=== PATIENT | male | born 1940 | race Caucasian/White ===

== ENCOUNTER 2021-12-13 15:34 | Emergency (ER) | payer MEDICARE, SELFPAY ==
[2021-12-13 15:45] VITALS: BP 125/67; PULSE 97; RESP 18; TEMP 36.6; O2SAT 97; BMI 26.2
[2021-12-13 16:00] VITALS: BP 128/70; PULSE 64; O2SAT 100
--- NOTE | 2021-12-13 16:17 | CRLHL7_ITS ---
For Patients: As a result of the Century Cures Act, medical imaging exams and procedure reports are released immediately into your electronic medical record. You may view this report before your referring provider. If you have questions, please contact your health care provider. INDICATION: Vertigo and emesis COMPARISON: 03/05/2014 TECHNIQUE: CT examination of the head was performed as axial sections without intravenous contrast. Images were obtained from the vertex of the skull through the skull base. Please note that all CT scans at this facility use dose modulation, iterative reconstruction, and/or weight-based dosing when appropriate to reduce radiation dose to as low as reasonably achievable. FINDINGS: The brain shows no sign of mass lesion, mass effect, hemorrhage, or edema. There are involutional changes. There is moderate cortical atrophy and there is moderate white matter disease. There is no hydrocephalus. The visualized portions of the orbits are normal in appearance. The osseous structures are normal in appearance with no sign of abnormality in the skull base or calvarium. Minor paranasal sinus mucosal inflammatory disease incidentally noted. IMPRESSION: Involutional changes. No acute-appearing findings. Please note that all CT scans at this facility use dose modulation, iterative reconstruction, and/or weight-based dosing when appropriate to reduce radiation dose to as low as reasonably achievable. Dictated by Martin Demarco MD @ 12/13/2021 5:23:44 PM (Electronically Signed)
[2021-12-13 16:30] VITALS: BP 127/66; PULSE 67; O2SAT 96
[2021-12-13 16:45] LABS: Basophils Absolute Auto 0.06 K/uL (0.00-0.30); Basophils Percent Auto 0.8 % (0.0-3.0); Eosinophils Absolute Auto 0.16 K/uL (0.00-0.50); Hematocrit 41.6 % (37.0-53.0); Hemoglobin* 12.8 gm/dL (13.5-17.5); Immature Granulocytes Abs Auto 0.02 K/uL (0.00-0.30); Lymphocytes Percent Auto 11.4 % (20-44); Mean Corpuscular HGB Conc 31 gm/dL (32-36); Mean Corpuscular Hemoglobin 25 pg (26-34); Mean Corpuscular Volume 81 fL (80-100); Monocytes Percent Auto 7.4 % (0.0-11.0); Neutrophils Percent Auto 78.1 % (42.0-72.0); Platelet Count* 182 K/uL (140-440); Red Blood Count 5.15 m/uL (4.30-5.90); White Blood Count* 7.81 K/uL (4.50-11.00)
[2021-12-13 16:57] LABS: Chloride* 102 mmol/L (96-114); Sodium* 138 mmol/L (135-149)
[2021-12-13 17:00] VITALS: BP 135/70; PULSE 64; O2SAT 97
[2021-12-13 17:00] LABS: Blood Urea Nitrogen* 37 mg/dL (7-30); Calcium* 9.6 mg/dL (8.4-10.6); Carbon Dioxide* 29 mmol/L (20-32); Creatinine* 1.3 mg/dL (0.5-1.5); Est. Creatinine Clearance* 42.38; Estimated Glomerular Filt Rate 54.85; Glucose* 96 mg/dL (60-115)
[2021-12-13 17:01] LABS: Slide Review Reflex No
[2021-12-13 17:15] LABS: Troponin I* < 0.01 ng/mL (0.01-0.04)
--- NOTE | 2021-12-13 17:25 | ED_ITS ---
HPI - General Adult General Time Seen by Provider: 16:00 Date Seen: 12/13/21 Chief complaint: Dizziness/Vertigo Stated complaint: VERTIGO Time Seen by Provider: 12/13/21 15:35 Source: patient History of Present Illness HPI narrative: 81-year-old male presents with an episode of vertigo. Patient reports having chronic recurrent episodes of vertigo triggered by looking up or turning his head to the right. He reports he always sleeps on his left side with his left ear down. If he sleeps on his right side he gets vertigo. He also notes that if he tips his head up and looks up to the Emile he gets vertigo. Today he was working on a car which required him to look up and as a result of this he got an episode of vertigo. He describes the vertigo as prominent nausea and today he had an emesis as well. He feels quite dizzy. He does not specifically describe abnormal movement or a sense of spinning. He does indicate that when this happens he is very unsteady on his feet and has to hold on to keep from falling down. Does not feel like he is losing consciousness. He does not have chest pain. This episode was worse than usual lasting 10-15 minutes total. It has now resolved. He has had no recent head trauma. He does not have ringing in his ears or low new loss of hearing. He does report that he has lost hearing in his right ear which is happened sometime ago. He does not have ringing or bu zzing in his ears. He has not had cold symptoms, allergy symptoms. He does not have a headache. He did have a nosebleed yesterday but it was able to be stopped. He is using sleep apnea CPAP which he finds to be uncomfortable. He thinks is the cause of his nose bleeds. Related Data Allergies Allergy/AdvReac Type Severity Reaction Status Date / Time latex Allergy Verified 12/13/21 15:45 ADHESIVE TAPE-SILICONES Allergy Uncoded 12/13/21 15:45 Latex Allergy Uncoded 12/13/21 15:45 Review of Systems Narrative: Patient reports that he has been felt generally feeling well prior to this event today. He has had no recent illness and no recent injury. He has had no other recent health concerns except his nosebleed yesterday. [facility] Medical History (Updated 12/13/21 @ 17:52 by Trey Kay MD) Adenomatous colon polyp Cardiac pacemaker Coronary artery disease Diabetes mellitus Hearing loss Heart failure Hyperlipidemia Hypertension Ischemic cardiomyopathy Left bundle branch block Left middle cerebral artery stroke Neuropathy Obstructive sleep apnea Prostate cancer Sensorineural hearing loss Surgical History (Updated 12/13/21 @ 15:53 by Trey Kay MD) S/P TAVR (transcatheter aortic valve replacement) Social History Smoking Status: Former smoker What tobacco products do you use: cigarettes Smoking quit date/years: >15 years ago Do you use any of these nicotine containing products: None Second hand tobacco smoke exposure: No How often do you have a drink containing alcohol: never How often do you have six or more drinks on one occasion: Never AUDIT-C Alcohol total score: 0 Non-prescribed substance use: denies use Exam Narrative: Exam Narrative: he is alert and appears in no distress. Head is atraumatic. Pinnas external canals TMs bilaterally normal. eyes appear normal. Conjugate gaze. Extraocular movements are full. Visual salazar are intact. There is no facial weakness. Oropharynx is normal. Tongue is midline. Diminished sensation in his right ear is noted. Neck is supple without mass or adenopathy. Respirations are clear to auscultation. Cardiovascular: S1, S2, regular rate and rhythm. No murmur gallop or rub. Abdomen: Abdomen is soft without tenderness or mass. Extremities with 1+ edema bilaterally in his ankles. He has altered sensation symmetrically. Intact pedal pulses. He lower extremity strength is approximately equal at hip flexion, knee flexion extension, ankle dorsiflexion and plantar flexion. Upper extremity testing shows [id number] and rapid alternating movements are symmetric bilaterally and accurate. 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 No rash Const: Vital Signs, click to edit/add: Vital Signs - 24 hr 12/13/21 15:45 Temperature 97.9 F Pulse Rate [Pulse Oximeter] 97 Respiratory Rate 18 Blood Pressure [Ri ght Upper Arm] 125/67 Pulse Oximetry 97 Course Vital Signs Vital signs: Initial Vital Signs Temperature 97.9 F 12/13/21 15:45 Temperature Source Temporal Artery Scan 12/13/21 15:45 Pulse Rate 97 12/13/21 15:45 Pulse Rhythm 12/13/21 15:45 Respiratory Rate 18 12/13/21 15:45 Blood Pressure 125/67 12/13/21 15:45 Blood Pressure Mean 86 12/13/21 15:45 Pulse Oximetry 97 12/13/21 15:45 Oxygen Delivery Method 12/13/21 15:45 Vital Signs Temperature 97.9 F 12/13/21 15:45 Pulse Rate 97 12/13/21 15:45 Respiratory Rate 18 12/13/21 15:45 Blood Pressure 125/67 12/13/21 15:45 Pulse Oximetry 97 12/13/21 15:45 Temperature 97.9 F 12/13/21 15:45 Pulse Rate 97 12/13/21 15:45 Respiratory Rate 18 12/13/21 15:45 Blood Pressure 125/67 12/13/21 15:45 Pulse Oximetry 97 12/13/21 15:45 Medical Decision Making Lab Data Labs: Lab Results 12/13/21 12/13/21 Range/Units 16:35 16:35 WBC 7.81 (4.50-11.00) K/uL RBC 5.15 (4.30-5.90) m/uL Hgb 12.8 L (13.5-17.5) gm/dL Hct 41.6 (37.0-53.0) % MCV 81 (80-100) fL MCH 25 L (26-34) pg MCHC 31 L (32-36) gm/dL RDW Coeff of Sabino 17.0 H (11.5-15.5) % Plt Count 182 (140-440) K/uL Neut % (Auto) 78.1 H (42.0-72.0) % Lymph % (Auto) 11.4 L (20-44) % [place] % (Auto) 7.4 (0.0-11.0) % Eos % (Auto) 2.0 (0.0-7.0) % Baso % (Auto) 0.8 (0.0-3.0) % Neut # (Auto) 6.10 (1.7-7.0) K/uL Lymph # (Auto) 0.90 (0.90-2.90) K/uL [place] # (Auto) 0.60 (0.00-0.90) K/UL Eos # (Auto) 0.16 (0.00-0.50) K/uL Baso # (Auto) 0.06 (0.00-0.30) K/uL Abs Immat Gran (auto) 0.02 (0.00-0.30) K/uL Sodium 138 (135-149) mmol/L Potassium 5.0 (3.6-5.1) mmol/L Chloride 102 (96-114) mmol/L Carbon Dioxide 29 (20-32) mmol/L BUN 37 H (7-30) mg/dL Creatinine 1.3 (0.5-1.5) mg/dL Estimated Creat Clear 42.38 Glucose 96 (60-115) mg/dL Calcium 9.6 (8.4-10.6) mg/dL Troponin I < 0.01 L (0.01-0.04) ng/mL Discharge Plan Discharge Clinical Impression: Vertigo Patient Disposition: Home, Self-Care Additional Instructions: continue your normal medications. Continue your normal activity including exercise. If you find he cannot tolerate activity due to dizziness you should see your doctor for further evaluation. Activity Level: Activity as Tolerated Discharge Diet: Diabetic Follow Up/Referrals: Basilio Conway MD [Primary Care Provider] - Stand Alone Forms: [employer] Info Instructions
[2021-12-13 17:30] VITALS: BP 129/63; PULSE 66; O2SAT 98
[2021-12-13 18:00] VITALS: BP 132/76; PULSE 66; PULSE 69; RESP 14; O2SAT 95
== END 2021-12-13 18:15 | disposition home or self-care (01) ==
PROVIDERS: Emergency Provider Family Medicine; PCP Family Medicine
DX: R42 Dizziness and giddiness (principal)
CPT/HCPCS: 36415; 70470; 80048; 84484; 85025; 99284; Q9967

== ENCOUNTER 2021-12-24 08:49 | Day surgery (SDC) | payer MEDICARE, SELFPAY ==
--- OUTSIDE RECORDS SUMMARY | 2021-12-03 09:01 | XMS_ITS | Continuity of Care Document ---
:1940 Author Care Team Providers Name Role Phone MD Krystian L Attending Physician MD Ward Conway Primary Care Physician Allergies, Adverse Reactions, Alerts Allergen Type Severity Reaction Last Updated Verified Status Latex Allergy Unknown October 19, Active 2021 ADHESIVE Allergy Unknown February No Active TAPE-SILICONE 2020 S Social History Smoking Status Status Start Date End Date Date of Observat ion Tobacco smoking October 20, 2021 1 1:51pm consumption unknown (finding) Observation Status Observation Response Date of Response History provided by Patient December 03, 2020 2:58 am Where do you live? Own home/apt December 03, 2020 2:58 am With whom do you live? Spouse December 03, 2020 2 :58am Additional Data Assigned Sex Male Problems Active Problems Medical Problem Onset Date Status Diabetes Type II June 22, 2009 Active Hypertension June 22, 2009 Active Prostate Cancer June 22, 2009 Resolved Coronary Artery Disease June 22, 2009 Active Hyperlipidemia June 22, 2009 Active Peripheral neuropathy during June 22, 2009 Active in first trimester Aortic Stenosis October 19, 2009 Active Coronary Artery Disease February 17, 2010 Active Groin pain Active Dizziness Active Benign paroxysmal positional Active vertigo Orthostatic lightheadedness Active Chest pain, rule out acute Active myocardial infarction Epistaxis Active Follow up Active Hypotension Active Melena Active Weight loss Active 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 Elevated BUN Active Elevated lactic acid level Active Abnormal blood electrolyte level Active Recurrent epistaxis Active Iron deficiency anemia due to Active chronic blood loss Chest pain Active Rib injury Active Vertigo Active Encounter for screening for Active COVID-19 Difficulty sleeping Active 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), bioprosthetic Medications Medication Status Dose Units Route Directions Qty Days Start End Ins tructions Date Date Amoxicillin Active 2000 MG PO Once 4 1 HR WI IOR TO APPT Aspirin Active 81 MG PO Daily 100 Atorvastatin Active 40 MG PO Bedtime Calcium Cephalexin Active 250 MG PO Three Times 27 August A Day 2021 10:43am Cephalexin Active 250 MG PO Twice A Day October 19, 2021 2:14pm Cholecalcifer Active 5000 UNIT PO Daily ol (D 5000) 5,000 Unit CAP Empagliflozin Active 10 MG PO Daily (Jardiance) 10 Mg TAB Furosemide Active 40 MG PO Daily as 30 FOR W EIGHT needed GAIN OF 3 LBS OVERNIGHT OR 5 LBS IN ONE WEEK Metformin Hcl Active 1000 MG PO Twice Daily June With Meals 2010 2:30pm Multivitamins Active 1 TAB PO Daily 100 (Multivitamin /Minerals) TAB Nitroglycerin Active 0.4 MG SL Every 5 PRN CHEST (Nitrostat) Minutes as AYANNA N 0.4 Mg SUB needed Semaglutide Active 0.25 MG SUBQ Weekly (Ozempic (1 Mg Dose)) 2 Mg/1.5 Ml INJ Vitamin E Active 400 UNIT PO Daily (E-400) 400 Unit CAP Acetaminophen Disconti 1 - 2 TABLET PO Every 4-6 Decembero be PRN /Hydrocodone nued Hours , r , Bitart 2007 2007 (Vicodin) 5 11:28am 1:33pm Mg/500 Mg TAB Acetaminophen Disconti 1 TABLET PO Four Times December obe PRN /Hydrocodone nued Daily , r , Bitart 2007 2007 (Vicodin) 5 11:55am 1:33pm Mg/500 Mg TAB Acetaminophen Disconti 1 TABLET PO Four Times December y PRN /Hydrocodone nued Daily , , Bitart 2007 2007 (Vicodin) 5 11:28am 11:55a Mg/500 Mg TAB m Amoxicillin Disconti 875 MG PO Twice A Day August nued , , 2009 2009 11:45am 9:02am Amoxicillin & Disconti 875 TABLET PO Twice A Day December nued y , Clavulanate 2006 2006 (Augmentin) 2:14pm 11:11a 875 Mg/125 Mg m TAB Aspirin Disconti 325 MG PO Daily September 12:45p m Aspirin Disconti 325 MG PO Daily September 10:51a m Aspirin Disconti 325 MG PO Daily December (Aspirin 325 , Mg) 325 Mg 2014 TAB 6:30pm Aspirin Disconti December (Aspirin Baby , 81 Mg) 81 Mg 2006 [facility] 11:11a m Atenolol Disconti 1 TABLET PO Daily October nued 2009 5:25pm 6:30pm Atenolol Disconti 1 TABLET PO Daily 90 October nu y 2009 2:44pm 5:25pm Atenolol Disconti 1 TABLET PO Daily 30 August y 2009 8:20am 11:58a m Atenolol Disconti 1 TABLET PO Daily June nu, ry 2008 18, 9:20am 2009 2:44pm Atenolol Disconti 1 TABLET PO Daily 30 Novemjunuar nued r , y 2007 2:04pm 9:20am Atenolol Disconti 1 TABLET PO Daily March nued , er 2007 10, 8:13am 2007 2:04pm Atenolol Disconti 1 TABLET PO Daily 90 nued er r , 2007 8:34am 2:59pm Atenolol Disconti 1 TABLET PO Daily September nued 2007 10:03am 11:18a m Atenolol Disconti 1 TABLET PO Daily Juneed 2007 2:19pm 10:03a m Atenolol Disconti 1 TABLET PO Daily June nued , y 2007, 11:01am 2007 2:19pm Atenolol Disconti 1 TABLET PO Daily 90 Novemjunuar nued r , y 2006, 4:12pm 2007 11:01a m Atenolol Disconti 1 TABLET PO Daily November nued 7th, er 2006 06, 11:30am 2006 4:08pm Atenolol Disconti 1 TABLET PO Daily 90 Ivelisse Love nued , 2006 12:29pm 11:30a m Atenolol Disconti 1 TABLET PO Daily September nued , 2006 11:26am 9:27am Atenolol Disconti August 2:43pm Atorvastatin Disconti 0.5 TABLET PO Daily Calcium nued r 8th, y 5th, (Lipitor) 80 2007 2008 Mg TAB 4:21pm 9:20am Atorvastatin Disconti 0.5 TABLET PO Daily October Calcium nued , er (Lipitor) 80 2008 01, Mg TAB 1:37pm 2007 4:21pm Atorvastatin Disconti 0.5 TABLET PO Daily September Calcium nued , (Lipitor) 80 2007 2007 Mg TAB 10:03am 11:17a m Atorvastatin Disconti 0.5 TABLET PO Daily June Calcium nued , , (Lipitor) 80 2007 2007 Mg TAB 11:01am 10:03a m Atorvastatin Disconti 0.5 TABLET PO Daily December Calcium nued , y (Lipitor) 80 2006 14, Mg TAB 11:30am 2007 11:01a m Atorvastatin Disconti 40 MG PO Daily January Calcium nued , (Lipitor) 40 2006 Mg TAB 9:29am Atorvastatin Disconti Calcium nued ry (Lipitor) 20 , Mg TAB 2006 1:59pm Cephalexin Disconti 500 MG PO Twice A Day Septemberb (Keflex) 500 nued , er Mg CAP 2016, 12:45pm 2016 9:04am Cholecalcifer Disconti 1000 UNIT PO Daily November ol (Vitamin nued , D) 1,000 Unit 2020 TAB 7:36am Ciprofloxacin Disconti 500 MG PO Twice A Day December obe Hcl (Cipro) nued , r , 500 Mg TAB 2007 2007 2:12pm 1:33pm Clopidogrel Disconti 75 MG PO Daily November Bisulfate nued 2020 11:19a m Clopidogrel Disconti 75 MG PO Daily January Bisulfate nued , , (Plavix) 75 2009 2016 Mg TAB 3:57pm 10:31a m Clopidogrel Disconti 75 MG PO Daily June Bisulfate nued , , (Plavix) 75 2010 2014 Mg TAB 10:44am 6:30pm Clopidogrel Disconti 75 MG PO Daily October Bisulfate nued , , (Plavix) 75 2009 2009 Mg TAB 3:00pm 3:57pm Clopidogrel Disconti 75 MG PO Daily June Bisulfate nued , , (Plavix) 75 2009 2009 Mg TAB 1:36pm 3:00pm Clopidogrel Disconti 75 MG PO Daily Bisulfate nued r 30, y 8th, (Plavix) 75 2008 2009 Mg TAB 5:47pm 1:36pm Clopidogrel Disconti 75 MG PO Daily November Bisulfate nued , er (Plavix) 75 2008, Mg TAB 3:15pm 2008 5:47pm Clopidogrel Disconti 75 MG PO Daily June Bisulfate nued , , (Plavix) 75 2008 2008 Mg TAB 9:20am 3:15pm Clopidogrel Disconti 75 MG PO Daily Bisulfate nued er y 5th, (Plavix) 75 , 2008 Mg TAB 2007 9:20am 8:34am Clopidogrel Disconti 75 MG PO Daily 08 January Bisulfate nued , (Plavix) 75 2007 Mg TAB 11:18a m Clopidogrel Disconti 75 MG PO Daily December Bisulfate nued , (Plavix) 75 2006 Mg TAB 11:11a m Desloratidine Disconti January (Clarinex) , Mg TAB 2006 9:29am Diabetic Disconti 1 EA Four Times December Supplies: nued Daily y , , Test Strips 2009 2014 (Onetouch 8:20am 6:30pm Ultra Blue Test Strip) KAYLA Diabetic Disconti 1 EA Twice A Day June Supplies: nued 11, ry Test Strips 2009, (Onetouch 8:05am 2009 Ultra Blue 8:20am Test Strip) KAYLA Diabetic Disconti 1 EA As Needed March Supplies: nued , y Test Strips 2009 04, (Onetouch 3:20pm 2009 Ultra Blue 8:05am Test Strip) KAYLA Diabetic Disconti 1 EA As Needed 100 December Supplies: nued 9, r 1st, Test Strips 2008 2008 (Onetouch 3:31pm 3:20pm Ultra Blue Test Strip) KAYLA Dulaglutide Disconti 1.5 MG SC September (Trulicity) , 1.5 Mg/0.5 Ml 2016 INJ 10:51a m Duloxetine Disconti 20 MG PO Daily 90 Decembe Ivelisse Hcl nued r 2017 2:31pm 11:19a m Duloxetine Disconti 20 MG PO Daily 90 Decembe Decemb Hcl nued r , er 2018 05, 11:10am 2017 2:31pm Duloxetine Disconti 20 MG PO Twice A Day 180 November Decemb Hcl nued , er 2017 09, 10:46am 2017 11:10a m Duloxetine Disconti 20 MG PO Twice A Day 60 September Hcl nued 2017 10:57am 10:46a m Duloxetine Disconti 20 MG PO Twice A Day 60 September Hcl nued , 2017 10:54am 10:57a m Exenatide Disconti 2 MG SUBQ Qfri November (Bydureon nued , Pen) 2 Mg INJ 2020 7:36am Exenatide Disconti 2 MG SUBQ Weekly 13 November (Bydureon nued , Pen) 2 Mg INJ 2020 7:36am Exenatide Disconti 10 MCG SUBQ Twice A Day 10 December I NJECT 1 HOUR ([place]etta) , PRIOR TO Mcg INJ 2014 MEALS 6:30pm Famotidine Disconti 20 MG PO Daily November 7:36am Famotidine Disconti 10 MG PO Daily September 10:51a m Fish Oil Disconti 500 MG PO Daily September 10:51a m Fluticasone Disconti 2 SPRAY EACH Daily September USE 2 SPRAYS Propionate nued NOSTR , IN EACH (Flonase) 50 2009 2014 NOSTRIL ONCE Mcg/1 [place] 9:15am 6:30pm DAILY JONATHAN Fluticasone Disconti 1 SPRAY EACH Daily as September Propionate nued NOSTR needed , (Flonase) 50 2009 2009 Mcg/1 [place] 9:02am 9:15am JONATHAN Fluticasone Disconti 1 SPRAY EACH Daily June Propionate nued NOSTR 5th, 7th, (Flonase) 50 2008 2009 Mcg/1 [place] 9:20am 9:02am JONATHAN Fluticasone Disconti 1 SPRAY EACH Daily Propionate nued NOSTR r 19, y 5th, (Flonase) 50 2007 2008 Mcg/1 [place] 2:58pm 9:20am JONATHAN Fluticasone Disconti 0 NA Daily September USE O NE SPARY Propionate nued , 17th, PER NARE (Nasal) 2006 2006 DAILY (Flonase 11:26am 11:11a Nasal [place]) m 50 Mcg/[place] JONATHAN Fluticasone Disconti 0 X NA Twice A Day Aug ch USE 2 SQUIRTS Propionate nued y 16, 6th, EA NARE BID (Nasal) 2006 2006 (Flonase 1:54pm 2:39pm Nasal [place]) 50 Mcg/[place] JONATHAN Furosemide Disconti 20 MG PO Daily December Phyllis ent ID nued r , , [id number] 2009 2014 1:12pm 6:30pm Furosemide Disconti 20 MG PO Daily October Patie nt ID nued , er [id number] 2010 04, 5:25pm 2009 1:12pm Furosemide Disconti 20 MG PO Daily October Phyllis ent ID nued r 14, 24, [id number] 2008 2009 4:43pm 5:25pm Furosemide Disconti 1 TAB PO Daily March (Lasix) 20 Mg nued , y TAB 2008 04, 8:13am 2009 8:05am Furosemide Disconti 20 MG PO Daily June nued 5th, er 2008 14, 9:20am 2008 4:43pm Furosemide Disconti 20 MG PO Daily March nued 31, y , 2007 2008 8:13am 9:20am Furosemide Disconti 20 MG PO Daily Octobe nued er r 16, , 2007 2007 8:34am 2:59pm Furosemide Disconti 20 MG PO Daily September nued 2007 10:03am 11:18a m Furosemide Disconti 20 MG PO Daily 90 June nued 2007 2:19pm 10:03a m Furosemide Disconti 20 MG PO Daily 90 Juner Pt is due to nued 14, y be seen in 05/18 11:01am 2007 2:19pm Furosemide Disconti 20 MG PO Daily March Pt is due to nued , y be seen in 05/18 2:57pm 2007 11:01a m Furosemide Disconti 20 MG PO Daily November nued , 2006, 11:30am 2006 12:02p m Furosemide Disconti 20 MG PO Daily November nued , 2006 2006 12:29pm 11:30a m Furosemide Disconti 10 MG PO Daily September nued 2006 5:12pm Glipizide Disconti 2 TABLET PO Daily December (Glipizide nued y , , Er) 10 Mg 2009 2014 TABCR 2:49pm 6:30pm Glipizide Disconti 20 MG PO Daily 60 January (Glipizide nued , ry Er) 10 Mg 2008, TABCR 8:47am 2009 2:49pm Glipizide Disconti 15 MG PO Daily November (Glipizide nued , , Er) 5 Mg 2008 2008 TABCR 3:15pm 8:47am Glipizide Disconti 5 MG PO Twice A Day June (Glipizide nued , Er) 5 Mg 2008 2008 TABCR 9:20am 3:15pm Glipizide Disconti 5 MG PO Twice A Day March r (Glipizide nued , y , Er) 5 Mg 2007 2008 TABCR 8:13am 9:20am Glipizide Disconti 5 MG PO Twice A Day 180 e (Glipizide nued er r Er) 5 Mg , , TABCR 2007 2007 8:34am 2:59pm Glipizide Disconti 5 MG PO Twice A Day September (Glipizide nued 23, 29, Er) 5 Mg 2007 2007 TABCR 10:03am 11:18a m Glipizide Disconti 5 MG PO Twice A Day June (Glipizide nued 14, 23, Er) 5 Mg 2007 2007 TABCR 2:19pm 10:03a m Glipizide Disconti 5 MG PO Twice A Day Juneua r Pt is due to (Glipizide nued 14, y be seen 1 07/19 Er) 5 Mg 2007 14, TABCR 11:01am 2007 2:19pm Glipizide Disconti 5 MG PO Twice A Day Marchua r Pt is due to (Glipizide nued 29, y be seen 1 07/19 Er) 5 Mg 2006 14, TABCR 2:57pm 2007 11:01a m Glipizide Disconti 5 MG PO Twice A Day November (Glipizide nued , r Er) 5 Mg 2006, TABCR 11:30am 2006 12:02p m Glipizide Disconti 5 MG PO Twice A Day November (Glipizide nued 7th, 17th, Er) 5 Mg 2006 2006 TABCR 12:29pm 11:30a m Glipizide Disconti 5 MG PO Twice A Day September (Glipizide nued 20th, Er) 5 Mg 2006 TABCR 12:21p m Glipizide Disconti Februa (Glucotrol Xl nued ry 2.5 Mg) 2.5 14, Mg TAB 2006 1:59pm Influenza Disconti 0.5 ML IM Once 12 March Octobe Virus Vacc nued 12th, r Triv Types 2010 05, A&B (Fluarix 8:23am 2009) 0.5 8:24am Ml INJ Influenza Disconti 0.5 ML IM Once 1 Novembe Novemb Virus Vacc nued r 11th, er Triv Types 2009 04, A&B (Fluzone 6:51pm 2008 (Pres-Free) 6:53pm Over 36 Month) 0.5 Ml SYR Influenza Disconti 0.5 ML IM Once 1 Novembe Novemb Virus Vacc nued r , er Triv Types 2006 06, A&B (Fluarix) 4:12pm 2006 0.5 Ml INJ 3:27pm Ketoprofen-Li Disconti 1 CRE EX Twice A Day 120 June J une docaine nued , Hcl-Gabap 2017 2017 (Vopac Gb 11:13am 10:34a 5-2-5 %) 1 m Cre CRE Ketoprofen-Li Disconti 1 CRE EX Twice A Day 120 Decembe J jim docaine nued r , y Hcl-Gabap 2016, (Vopac Gb 1:08pm 2017 5-2-5 %) 1 11:13a Cre CRE m Ketoprofen-Li Disconti 1 CRE EX Twice A Day 30 Novembe D ecemb docaine nued r , er Hcl-Gabap 2016, (Vopac Gb 11:26am 2016 5-2-5 %) 1 1:08pm Cre CRE Ketoprofen-Li Disconti 1 CRE EX Twice A Day 30 Novembe N ovemb docaine nued r , er Hcl-Gabap 2016, (VopaeGym Gb 9:33am 2016 5-2-5 %) 1 11:26a Cre CRE m Lisinopril Disconti 2.5 MG PO Daily December nued 2014 9:56am Loperamide Disconti 4 MG PO As Needed November nued , (Loperamide 2020 A-D) 2 Mg TAB 7:36am Loperamide Disconti 2 MG PO Qid Prn December Hcl nued 2014 6:30pm Lorazepam Disconti 1 MG PO Every 12 September (Ativan) 1 Mg nued Hours as 6th, er TAB needed 2016, 12:45pm 2016 9:04am Metformin Hcl Disconti 1000 MG PO Twice Daily 180 December uar nued With Meals 2009, 10:24am 2010 2:29pm Metformin Hcl Disconti 1000 MG PO Twice Daily June J ekaterina nued With Meals , 2009 2:12pm 10:24a m Metformin Hcl Disconti 1000 MG PO Twice Daily 180 November uar nued With Meals 2008, 3:15pm 2009 2:12pm Metformin Hcl Disconti 1000 MG PO Twice Daily June J une nued With Meals 2008 9:20am 3:15pm Metformin Hcl Disconti 1000 MG PO Twice Daily 180 December uar nued With Meals , y 2007 11:55am 9:20am Metformin Hcl Disconti 1000 MG PO Twice Daily September y nued With Meals , 2007 10:03am 11:55a m Metformin Hcl Disconti 1000 MG PO Twice Daily June A pril nued With Meals , 2007 2:19pm 10:03a m Metformin Hcl Disconti 1000 MG PO Twice Daily June J jim Pt is due to nued With Meals 14, y be seen 1 07/19 2007 14, 11:01am 2007 2:19pm Metformin Hcl Disconti 1000 MG PO Twice Daily March J jim Pt is due to nued With Meals , y be seen 1 07/19 2006 14, 2:57pm 2007 11:01a m Metformin Hcl Disconti 1000 MG PO Twice Daily 180 November obe nued With Meals , 2006, 11:30am 2006 12:02p m Metformin Hcl Disconti 1000 MG PO Twice Daily November nued With Meals , 2006 12:29pm 11:30a m Metformin Hcl Disconti September nued 2006 5:12pm Metoprolol Disconti 12.5 MG PO Bedtime November Succinate nued , (Metoprolol 2020 Succinate Er) 11:19a 25 Mg TABCR m Metoprolol Disconti 25 MG PO Twice A Day November Tartrate nued 2020 7:36am Nystatin Disconti 1 PATRICIA TOP Daily October (Topical) nued , (Nystop) 2015 100,000 Mg 11:00a POW m Omeprazole Disconti 20 MG PO Daily December (Prilosec) nued , Mg CAP 2014 6:30pm Oxycodone/[place] Disconti 1 TAB PO Every 12 September taminophen nued Hours as 6th, er needed for 2016, Pain 12:45pm 2016 9:04am Pioglitazone Disconti 15 MG PO Daily Marchua Hcl (Actos) nued , ry 15 Mg TAB 2007, 8:13am 2008 9:38am Pioglitazone Disconti 15 MG PO Daily Octobe Hcl (Actos) nued er r 15 Mg TAB , 2007 8:34am 2:59pm Pioglitazone Disconti 15 MG PO Daily October Hcl (Actos) nued , , 15 Mg TAB 2007 2007 10:36am 11:18a m Pioglitazone Disconti 0.5 TABLET PO Daily December Decemb Hcl (Actos) nued , er 30 Mg TAB 2006, 11:30am 2006 5:15pm Pioglitazone Disconti 15 MG PO Daily 0 January Hcl (Actos) nued , 15 Mg TAB 2006 9:29am Plavix 75MG Disconti January Qd nu2006 9:29am Senna/Docusat Disconti 1 TAB PO Twice A Day September emb e Sodium nued as needed , er (Senna S) 8.6 2016, Mg/50 Mg TAB 12:46pm 2016 9:04am Simvastatin Disconti 1 TABLET PO Bedtime June (Zocor) 80 Mg nued , , TAB 2010 2014 1:56pm 6:30pm Simvastatin Disconti 1 TABLET PO Bedtime Januar (Zocor) 80 Mg nued r , , TAB 2008 2010 5:47pm 1:56pm Simvastatin Disconti 1 TABLET PO Bedtime June (Zocor) 80 Mg nued , er TAB 2008, 9:20am 2008 5:47pm Immunizations Immunization Event Date Not Given Dose Insulation Worker Lot Vac cine Reason Number Number Informatio n Statement (VIS) Deta il COVID-19 Pfizer July 13 PFIZER-BIONTECH [id number] 2020 COVID-19 Pfizer August 25 PFIZER-BIONTECH [id number] 2020 Influenza April 12 glaxo [id number] 2008 a Influenza March 13 Glaxosmithkline [id number] 2009 a Advance Directives Advance Directive Response Recorded Date/Time Does Pt have Health Care No January 07, 2015 7:00pm Directive? Has patient completed a Yes February 21, 2021 2:05pm Health Care Directive? Insurance Providers Guarantor Sumit Almeida Address [id number] [id number] Contact Info. Home Phone: C Payer Policy Id Coverage Id Subscriber's Subscriber Id Effective E xpiration Name Date Date [employer] [id number] Sumit Almeida Medicare Ppo [id number] Plan of Treatment Future Tests Future scheduled test information is unavailable Pending Tests Pending diagnostic test information is unavailable Future Visits Future appointment information is unavailable Referrals to Other Providers Reason for Referral Referral Start Provider Provider Contact Pr ovider Address Date Information Sumit is scheduled Vot Work Phone[facility] Gibbs on [address] December 27, [facility] [address] at 9:30 am. Appointment made with Dr. Estrada Felix at [facility] Dr. Isidro in [place]. [phone]. 3 pm on October 07 Estrada Told patient to take 2 enemas for appointment 1pm and 2pm No diet larry restrictions. Patient is Dr. Julianne scheduled with Dr. Goldstein Monday October 22, 2007 at 3:[address] Tra scheduled for on October 19, 2007 at 1:15 pm at [place] Appointment set up [facility], Work Phone: DINA CRUMP Y for January 06 at Smith Rossi MD [address] 9:[address] [place] [address] [facility]. Appointment made with Dr. Estrada Felix at [facility] Dr. Isidro in [place]. [phone]. 3 pm on October 07 Estrada Told patient to take 2 enemas for appointment 1pm and 2pm No diet larry restrictions. Patient is Dr. Julianne scheduled with Dr. Goldstein Monday October 22, 2007 at 3:[address] Tra scheduled for on October 19, 2007 at 1:15 pm at [place] Appointment set up [facility], Work Phone: [facility]OLOG Y for January 06 at Smith Rossi MD [address] 9:[address] [place] [address] [facility]. Future Procedures Future procedure information is unavailable Future Medications Future medication information is unavailable Patient Instructions See Additional Instructions Chest Pain (DC) Lorazepam (By mouth) Laxative, Stool Softeners (By mouth) Nosebleed (GEN)
[2021-12-24] MEDS: LACTATED RINGERS 1000 ML 1,000 ML 100 ML IV (09:30)
[2021-12-24] MEDS: LACTATED RINGERS 1000 ML 1,000 ML 35 ML IV (09:30)
[2021-12-24 09:32] VITALS: BP 135/64; PULSE 62; RESP 20; TEMP 36.5; O2SAT 99; BMI 28.6
[2021-12-24] MEDS: OXYMETAZOLINE 0.05% NASAL SPRAY 2 SPRAY NOSTRIL-B (09:45)
[2021-12-24] MEDS: SODIUM CHLORIDE 0.9 % (FLUSH) 10 ML SYRINGE IVF (09:45)
--- NOTE | 2021-12-24 10:49 | W.PM.ENTPROC ---
Procedure Note Date of procedure: 12/24/21 Procedure: Preoperative diagnosis nasal septal perforation Postoperative diagnosis same Procedure placement of nasal septal button Under attended local anesthesia the patient's prepped and draped in usual fashion. The nose was decongested with a small amount of cocaine soaked on after on pledgets. A septal button was marked with a paper template and then trimmed. Two 4-0 nylon sutures were placed on the left side of the septal button to allow it to fit through the perforation. The septal bone was placed without difficulty in both sutures were removed. The patient tolerated the procedure well and was taken recovery in satisfactory condition blood loss was 0 Surgeon: Jeison Boland MD
--- NOTE | 2021-12-24 10:56 | SUR.OPER ---
PATIENT QUESTIONS ANSWERED SATISFACTORILY PREOPERATIVELY. PATIENT BROUGHT TO OR #2 PER CART.Patient positioned supine on OR #2 bed. ?Perioperative team tucked arms bilaterally at patient side with drawsheet in a neutral position. ?Final approval of positioning by surgeon. Petar. APPROVED USE OF THE SEPTAL BUTTON.
--- NOTE | 2021-12-24 10:58 | W.ANESCHARGE ---
Anesthesia Charges Start Date/Time Anesthesia Start Date: 12/24/21 Anesthesia Start Time: 10:30 Stop Date/Time Anesthesia Stop Date: 12/24/21 Anesthesia Stop Time: 10:58 Summary Emergency: No Extremes of Age: Over 69-CPT [id number]
[2021-12-24 11:00] VITALS: BP 147/69; PULSE 65; RESP 20; O2SAT 99
[2021-12-24 11:11] VITALS: BP 143/68; PULSE 64; RESP 20; TEMP 36.2; O2SAT 96
[2021-12-24 11:30] VITALS: BP 151/73; PULSE 64; RESP 20; O2SAT 99
--- NOTE | 2021-12-24 11:43 | SUR.PHASEII ---
DISCHARGE INSTRUCTIONS GIVEN TO PT AND DAUGHTER BOTH UNDERSTAND AND HAVE NO FURTHER QUESTIONS. SALINE LOCK D/CD CATHETER INTACT. PT DISCHARGED IN STABLE CONDTION
[2021-12-24 11:45] VITALS: BP 143/69; PULSE 64; RESP 20; O2SAT 99
== END 2021-12-24 11:50 | disposition home or self-care (01) ==
PROVIDERS: PCP Family Medicine; Visit Provider Otolaryngology
PROC: (CPT 30520; principal; 2021-12-24 09:45)
DX: J34.89 Other specified disorders of nose and nasal sinuses (principal)
CPT/HCPCS: 30630; 160; 99100; A9270; J2704; J7120

== ENCOUNTER 2022-12-24 20:07 | Emergency (ER) | payer MEDICARE, SELFPAY ==
[2022-12-24 20:32] VITALS: BP 116/65; PULSE 71; RESP 14; TEMP 36.2; O2SAT 98; BMI 27.4
--- NOTE | 2022-12-24 21:53 | ED.GENADULT ---
HPI - General Adult General Chief complaint: Extremity Pain/Injury, Lower Stated complaint: left leg sore, swollen, bruised, diabetic Time Seen by Provider: 12/24/22 21:21 History of Present Illness HPI narrative: Pt here for eval of LLE, swelling, redness, pain. Was away at car event since last week and noticed spot on leg. Has been getting worse. Hx diabetes, neuropathy 82-year-old man presenting to the emergency department with concern of potential blood clot in his leg. Has not had any chest pain or shortness of breath. Does take clopidogrel. There was no trauma. Underlying history of neuropathy in the setting of diabetes with a history of hypesthesia and pain more than loss of sensation. This erythema began a few days ago and admittedly looks better than it did couple days ago. Has been apparently recommended to some compression stockings in the past but does not wear them. Evidently have been treating with some cold packs. Related Data Home Medications Medication Instructions Recorded Confirmed atorvastatin 40 mg tablet 40 mg PO QPM 12/22/21 03/15/22 cholecalciferol (vitamin D3) 125 5,000 unit PO DAILY 12/22/21 03/15/22 mcg (5,000 unit) capsule clopidogrel 75 mg tablet 75 mg PO DAILY 12/22/21 03/15/22 duloxetine 20 mg capsule,delayed 20 mg PO BID 12/22/21 03/15/22 release empagliflozin 10 mg tablet 10 mg PO DAILY 12/22/21 03/15/22 furosemide 40 mg tablet 40 mg PO .COMPLEX PRN 12/22/21 03/15/22 metformin 1,000 mg tablet 1,000 mg PO BID 12/22/21 03/15/22 semaglutide 0.25 mg or 0.5 mg (2 1 mg subcut .weekly 12/22/21 03/15/22 mg/1.5 mL) subcutaneous pen injector (Ozempic) vitamin E (dl, acetate) 180 mg 400 unit PO DAILY 12/22/21 03/15/22 (400 unit) capsule Allergies Allergy/AdvReac Type Severity Reaction Status Date / Time adhesive tape Allergy Unknown Verified 03/15/22 11:29 latex Allergy Verified 03/15/22 11:29 Review of Systems Status of ROS: Reports: 6 or more systems reviewed and unremarkable except as noted in History and below [facility] Medical History Hearing loss ?H91.90 - Unspecified hearing loss, unspecified ear (ICD-10) Heart failure ?I50.9 - Heart failure, unspecified (ICD-10) 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 - Cerebral infarction due to unspecified occlusion or stenosis of left middle cerebral artery (ICD-10) Cardiac pacemaker ?Z95.0 - Presence of cardiac pacemaker (ICD-10) Obstructive sleep apnea ?G47.33 - Obstructive sleep apnea (adult) (pediatric) (ICD-10) Ischemic cardiomyopathy ?I25.5 - Ischemic cardiomyopathy (ICD-10) Left bundle branch block ?I44.7 - Left bundle-branch block, unspecified (ICD-10) Sensorineural hearing loss ?H90.5 - Unspecified sensorineural hearing loss (ICD-10) Adenomatous colon polyp ?D12.6 - Benign neoplasm of colon, unspecified (ICD-10) Neuropathy ?G62.9 - Polyneuropathy, unspecified (ICD-10) Prostate cancer ?C61 - Malignant neoplasm of prostate (ICD-10) Hyperlipidemia ?E78.5 - Hyperlipidemia, unspecified (ICD-10) Hypertension ?I10 - Essential (primary) hypertension (ICD-10) Coronary artery disease ?I25.10 - Atherosclerotic heart disease of [place] coronary artery without angina pectoris (ICD-10) Diabetes mellitus ?E11.9 - Type 2 diabetes mellitus without complications (ICD-10) Surgical History Status post transcatheter aortic valve replacement (TAVR) using bioprosthesis ?Z95.3 - Presence of xenogenic heart valve (ICD-10) S/P hernia repair ?Z98.890 - Other specified postprocedural states (ICD-10) ?Z87.19 - Personal history of other diseases of the digestive system (ICD-10) S/P TAVR (transcatheter aortic valve replacement) ?Z95.2 - Presence of prosthetic heart valve (ICD-10) Social History Smoking Status: Never smoker Do you use any of these nicotine containing products: None Second hand tobacco smoke exposure: No How often do you have a drink containing alcohol: never How often do you have six or more drinks on one occasion: Never AUDIT-C Alcohol total score: 0 Non-prescribed substance use: denies use Caffeine: Yes Exam Narrative: Exam Narrative: Left lower anterolateral leg has a palm sized area of erythema with some mild calor more centrally. There are superficial varicosities over the lower legs bilaterally left greater than right. Negative Homans. No pain to palpation elsewhere in the leg. No loss of surface architecture. Generally 1+ pitting edema bilaterally lower extremities. Const: Vital Signs, click to edit/add: Vital Signs - 24 hr 12/24/22 20:32 Temperature 97.2 F L Pulse Rate [Pulse Oximeter] 71 Respiratory Rate 14 Blood Pressure [Ri t Upper Arm] 116/65 Pulse Oximetry 98 Oxygen Delivery Me thod Room Air Documenting provider has reviewed patient's vital signs: yes Course Vital Signs Vital signs: Initial Vital Signs Temperature 97.2 F L 12/24/22 20:32 Temperature Source Temporal Artery Scan 12/24/22 20:32 Pulse Rate 71 12/24/22 20:32 Pulse Rhythm Regular 12/24/22 20:32 Respiratory Rate 14 12/24/22 20:32 Blood Pressure 116/65 12/24/22 20:32 Blood Pressure Mean 82 12/24/22 20:32 Blood Pressure Position Sitting 12/24/22 20:32 Pulse Oximetry 98 12/24/22 20:32 Oxygen Delivery Method Room Air 12/24/22 20:32 Vital Signs Temperature 97.2 F L 12/24/22 20:32 Pulse Rate 71 12/24/22 20:32 Respiratory Rate 14 12/24/22 20:32 Blood Pressure 116/65 12/24/22 20:32 Pulse Oximetry 98 12/24/22 20:32 Oxygen Delivery Method Room Air 12/24/22 20:32 Temperature 97.2 F L 12/24/22 20:32 Pulse Rate 71 12/24/22 20:32 Respiratory Rate 14 12/24/22 20:32 Blood Pressure 116/65 12/24/22 20:32 Pulse Oximetry 98 12/24/22 20:32 Oxygen Delivery Method Room Air 12/24/22 20:32 Medical Decision Making MDM Narrative Medical decision making narrative: I do not see findings consistent with cellulitis. I believe this is more of a localized inflammatory reaction/change consistent with superficial phlebitis. I do not see evidence of deep venous area thrombus. There is general symmetry to both legs as well. I do think we can defer any ultrasound imaging here today. I did though discussed that this was something we could do with Mr. León and his partner. Does need to do a better job of elevating his legs. Opted to defer at this point. I offered/applied Wayne wraps. See patient discharge plan. Discharge Plan Discharge Clinical Impression: Varicose veins of both lower extremities, Superficial thrombophlebitis, Edema, peripheral Patient Disposition: Home, Self-Care Condition: Stable Additional Instructions: Elevate your legs at rest as best you can. Consider compression with Wayne wraps as discussed. Watch for marked increase in swelling of your leg or marked increase in pain, spreading redness, tension, heat. Apply cold packs as you wish but otherwise mobilization is probably best helped with warm moist packs couple of times daily. Prescriptions: No Action atorvastatin 40 mg tablet 40 mg PO QPM cholecalciferol (vitamin D3) 125 mcg (5,000 unit) capsule 5,000 unit PO DAILY clopidogrel 75 mg tablet 75 mg PO DAILY duloxetine 20 mg capsule,delayed release(DR/EC) 20 mg PO BID empagliflozin 10 mg tablet 10 mg PO DAILY furosemide 40 mg tablet 40 mg PO .COMPLEX PRN Rx Instructions: 40 mg PO FOR WEIGHT GAIN OF 3 LBS OVERNIGHT OR 5 LBS IN ONE WEEK PRN; FOR WEIGHT GAIN OF 3 LBS OVERNIGHT OR 5 LBS IN ONE WEEK metformin 1,000 mg tablet 1,000 mg PO BID Patient Comments: TAKE 1 TABLET BY MOUTH TWICE DAILY WITH MEALS Ozempic 0.25 mg or 0.5 mg(2 mg/1.5 mL) pen injector 1 mg SUBCUT .weekly Patient Comments: INJECT 1 MG SUBCUTANEOUS ONCE WEEKLY. vitamin E (dl, acetate) 180 mg (400 unit) capsule 400 unit PO DAILY Follow Up/Referrals: Basilio Conway MD [Primary Care Provider] - Stand Alone Forms: [employer] Info Instructions
== END 2022-12-24 23:07 | disposition home or self-care (01) ==
LOC: ED 22:14
PROVIDERS: Emergency Provider Family Medicine; PCP Family Medicine
DX: I80.03 Phlebitis and thrombophlebitis of superficial vessels of lower extremities, bilateral (principal)
CPT/HCPCS: 99282; 99284

== ENCOUNTER 2023-04-10 15:33 | Outpatient (CLI) | payer MEDICARE, SELFPAY | END 2023-04-10 15:34 | disposition home or self-care (01) | LOC: AMB 04-12 11:50 | PROVIDERS: PCP Family Medicine; Visit Provider Family Medicine | DX: R41.82 Altered mental status, unspecified (principal) | CPT/HCPCS: A0425; A0427 ==

== ENCOUNTER 2023-04-10 16:04 | Emergency (ER) | payer MEDICARE, SELFPAY ==
[2023-04-10] VITALS (21 sets, daily range): BP systolic 97–136; BP diastolic 57–74; PULSE 68–75; RESP 16; TEMP 36.3; O2SAT 95–98; BMI 25.0
--- NOTE | 2023-04-10 16:14 | CRLHL7_ITS ---
For Patients: As a result of the Century Cures Act, medical imaging exams and procedure reports are released immediately into your electronic medical record. You may view this report before your referring provider. If you have questions, please contact your health care provider. INDICATION: Fall. TECHNIQUE: Noncontrast CT of the head with multiplanar reformat in bone and soft tissue algorithms. COMPARISON: CT head dated 12/13/2021. FINDINGS: No acute intracranial hemorrhage. The hess-white matter interface is preserved. Mild global parenchymal volume loss with ex-vacuo prominence of the supratentorial ventricles. The skull base and calvarium are within normal limits. There is evidence of prior cataract surgery. Paranasal sinuses and mastoid air cells are predominantly clear. IMPRESSION: No acute intracranial abnormality. Please note that all CT scans at this facility use dose modulation, iterative reconstruction, and/or weight-based dosing when appropriate to reduce radiation dose to as low as reasonably achievable. Dictated by John Donis MD @ 04/10/2023 4:50:55 PM (Electronically Signed)
--- NOTE | 2023-04-10 16:14 | CRLHL7_ITS ---
For Patients: As a result of the Century Cures Act, medical imaging exams and procedure reports are released immediately into your electronic medical record. You may view this report before your referring provider. If you have questions, please contact your health care provider. INDICATION: Acute stroke. TECHNIQUE: CTA neck with contrast bolus tracking, 3D angiographic rendering using maximum intensity projection (MIP) and images permanently archived. FINDINGS: There is carotid atherosclerosis with irregular calcified plaque at both carotid bifurcations. There are moderate approximately 50% stenoses on both sides. There is no significant vertebral artery stenosis or dissection. The soft tissues of the neck are within normal limits. The cervical spine is in normal alignment. Degenerative changes are noted in the cervical spine. IMPRESSION: Moderate bilateral carotid stenoses, about 50% by NASCET on both sides. Please note that all CT scans at this facility use dose modulation, iterative reconstruction, and/or weight-based dosing when appropriate to reduce radiation dose to as low as reasonably achievable. Dictated by Luis Olivera MD @ 04/11/2023 8:09:08 AM (Electronically Signed)
--- NOTE | 2023-04-10 16:14 | CRLHL7_ITS ---
For Patients: As a result of the Century Cures Act, medical imaging exams and procedure reports are released immediately into your electronic medical record. You may view this report before your referring provider. If you have questions, please contact your health care provider. INDICATION: Acute stroke. TECHNIQUE: CTA head with contrast bolus tracking, 3D angiographic rendering using maximum intensity projection (MIP) and images permanently archived. FINDINGS: There is scattered intracranial atherosclerotic disease. There is normal opacification of the intracranial vasculature. There is no large vessel occlusion. No aneurysm is identified. IMPRESSION: No large vessel occlusion. Please note that all CT scans at this facility use dose modulation, iterative reconstruction, and/or weight-based dosing when appropriate to reduce radiation dose to as low as reasonably achievable. Dictated by Luis Olivera MD @ 04/11/2023 8:04:49 AM (Electronically Signed)
--- NOTE | 2023-04-10 16:32 | ED_ITS ---
HPI - General Adult General Chief complaint: Neuro Symptoms/Altered Deficit Stated complaint: Possible stroke Time Seen by Provider: 04/10/23 16:14 Source: patient and EMS Mode of arrival: EMS Limitations: no limitations History of Present Illness HPI narrative: 82-year-old male presenting today after having an episode where he felt very disoriented. Patient states that he was driving home when he all of a sudden felt like he could and steer the car properly and he could not push down on the gas pedal properly. He states that he was going about 70 miles an hour so he slow down to about 45 miles an hour and proceeded to continue on his way home which was about 2-3 miles. He made it home and when he got in his driveway he called his daughter to come outside and asked her to call 911. By the time he arrives in the ER today, he states that he has no symptoms and he is back to baseline. He does not believe he had any difficulty with speech. Believes that the episode encompassed his whole body and not just 1 side. He had no loss of bowel or bladder control. He had no visual changes or ringing in his ears. He had no loss of consciousness. He is currently headache free. 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 Glucose on arrival was 101. Related Data Home Medications Medication Instructions Recorded Confirmed atorvastatin 40 mg tablet 40 mg PO QPM 12/22/21 04/10/23 cholecalciferol (vitamin D3) 125 5,000 unit PO DAILY 12/22/21 04/10/23 mcg (5,000 unit) capsule clopidogrel 75 mg tablet 75 mg PO DAILY 12/22/21 04/10/23 duloxetine 20 mg capsule,delayed 20 mg PO BID 12/22/21 04/10/23 release empagliflozin 10 mg tablet 10 mg PO DAILY 12/22/21 04/10/23 furosemide 40 mg tablet 40 mg PO .COMPLEX PRN 12/22/21 04/10/23 metformin 1,000 mg tablet 1,000 mg PO BID 12/22/21 04/10/23 semaglutide 0.25 mg or 0.5 mg (2 1 mg subcut .weekly 12/22/21 04/10/23 mg/1.5 mL) subcutaneous pen injector (Ozempic) vitamin E (dl, acetate) 180 mg 400 unit PO DAILY 12/22/21 04/10/23 (400 unit) capsule gabapentin 300 mg capsule 300 mg PO 3XD 04/10/23 04/10/23 Allergies Allergy/AdvReac Type Severity Reaction Status Date / Time adhesive tape Allergy Unknown Verified 04/10/23 16:19 latex Allergy Verified 04/10/23 16:19 Review of Systems Status of ROS: Reports: 10 or more systems reviewed and unremarkable except as noted in History and below PFSH FOR[facility]LY [facility] Medical History Hearing loss ?H91.90 - Unspecified hearing loss, unspecified ear (ICD-10) Heart failure ?I50.9 - Heart failure, unspecified (ICD-10) 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 - Cerebral infarction due to unspecified occlusion or stenosis of left middle cerebral artery (ICD-10) Cardiac pacemaker ?Z95.0 - Presence of cardiac pacemaker (ICD-10) Obstructive sleep apnea ?G47.33 - Obstructive sleep apnea (adult) (pediatric) (ICD-10) Ischemic cardiomyopathy ?I25.5 - Ischemic cardiomyopathy (ICD-10) Left bundle branch block ?I44.7 - Left bundle-branch block, unspecified (ICD-10) Sensorineural hearing loss ?H90.5 - Unspecified sensorineural hearing loss (ICD-10) Adenomatous colon polyp ?D12.6 - Benign neoplasm of colon, unspecified (ICD-10) Neuropathy ?G62.9 - Polyneuropathy, unspecified (ICD-10) Prostate cancer ?C61 - Malignant neoplasm of prostate (ICD-10) Hyperlipidemia ?E78.5 - Hyperlipidemia, unspecified (ICD-10) Hypertension ?I10 - Essential (primary) hypertension (ICD-10) Coronary artery disease ?I25.10 - Atherosclerotic heart disease of [place] coronary artery without angina pectoris (ICD-10) Diabetes mellitus ?E11.9 - Type 2 diabetes mellitus without complications (ICD-10) Surgical History Status post transcatheter aortic valve replacement (TAVR) using bioprosthesis ?Z95.3 - Presence of xenogenic heart valve (ICD-10) S/P hernia repair ?Z98.890 - Other specified postprocedural states (ICD-10) ?Z87.19 - Personal history of other diseases of the digestive system (ICD-10) S/P TAVR (transcatheter aortic valve replacement) ?Z95.2 - Presence of prosthetic heart valve (ICD-10) Social History Smoking Status: Never smoker Do you use any of these nicotine containing products: None Second hand tobacco smoke exposure: No How often do you have a drink containing alcohol: never How often do you have six or more drinks on one occasion: Never AUDIT-C Alcohol total score: 0 Non-prescribed substance use: denies use Caffeine: Yes Exam Narrative: Exam Narrative: Well-nourished well-developed patient in no acute distress. Alert and oriented x3. Answers questions appropriately. Mood and affect are appropriate. Thoughts are goal oriented and rational. No tangential or magical thinking noted. Patient speaks in full sentences without needing to catch his breath. Speech is not slurred or pressured. HEENT: Normocephalic atraumatic. Pupils are equally round reactive to light. Extraocular muscles are intact. Conjunctivae are moist without any icterus noted. Moist mucous membranes. Posterior pharynx is normal. Neck is soft without any lymphadenopathy or thyromegaly. No masses are appreciated. Slight asymmetry of his lips, he states this is not new. No asymmetry of the rest of the face. Cardiovascular: Heart is regular rate and rhythm S1 and S2 are present without any murmurs. Lungs: Clear to auscultation bilaterally no wheezes rhonchi or rales are appreciated. Patient takes deep breaths without any discomfort. Abdomen: Soft and nontender nondistended with normal bowel sounds. Extremities: Bilateral lower extremities are without edema. Skin: Well perfused without any obvious rashes. Strength is 5/5 of the upper and lower extremities. Reflexes are 2+ and symmetric at the knees. Cranial nerves 3-12 are normal. [id number] is normal. There is no nystagmus either horizontally or vertically. Gait is normal. No pronator drift. Const: Vital Signs, click to edit/add: Vital Signs - 24 hr 04/10/23 16:12 04/10/23 16:14 04/10/23 16:14 Temperature 97.3 F L Pulse Rate Pulse Rate [Left P ulse Oximeter] 68 Pulse Rate [Pulse Oximeter] 69 Respiratory Rate 16 Blood Pressure Blood Pressure [Le ft Upper Arm] 97/57 L Pulse Oximetry 98 98 Oxygen Delivery Me thod Room Air 04/10/23 16:57 04/10/23 17:00 04/10/23 17:02 Temperature Pulse Rate 68 70 71 Pulse Rate [Left P ulse Oximeter] Pulse Rate [Pulse Oximeter] Respiratory Rate Blood Pressure 109/65 Blood Pressure [Le ft Upper Arm] Pulse Oximetry 96 98 96 Oxygen Delivery Me thod 04/10/23 17:10 04/10/23 17:12 04/10/23 17:15 Temperature Pulse Rate 72 74 Pulse Rate [Left P ulse Oximeter] Pulse Rate [Pulse Oximeter] Respiratory Rate Blood Pressure 120/66 Blood Pressure [Le ft Upper Arm] Pulse Oximetry 97 96 96 Oxygen Delivery Me thod 04/10/23 17:22 04/10/23 17:23 04/10/23 17:30 Temperature Pulse Rate 74 72 70 Pulse Rate [Left P ulse Oximeter] Pulse Rate [Pulse Oximeter] Respiratory Rate Blood Pressure 118/66 Blood Pressure [Le ft Upper Arm] Pulse Oximetry 98 97 97 Oxygen Delivery Me thod 04/10/23 17:32 04/10/23 18:04 04/10/23 18:06 Temperature Pulse Rate 69 72 70 Pulse Rate [Left P ulse Oximeter] Pulse Rate [Pulse Oximeter] Respiratory Rate Blood Pressure 119/65 129/66 Blood Pressure [Le ft Upper Arm] Pulse Oximetry 97 96 98 Oxygen Delivery Me thod 04/10/23 18:07 04/10/23 18:15 04/10/23 18:30 Temperature Pulse Rate 71 73 75 Pulse Rate [Left P ulse Oximeter] Pulse Rate [Pulse Oximeter] Respiratory Rate Blood Pressure Blood Pressure [Le ft Upper Arm] Pulse Oximetry 97 97 95 Oxygen Delivery Me thod 04/10/23 18:32 04/10/23 18:45 Temperature Pulse Rate 74 75 Pulse Rate [Left P ulse Oximeter] Pulse Rate [Pulse Oximeter] Respiratory Rate Blood Pressure 132/71 Blood Pressure [Le ft Upper Arm] Pulse Oximetry 97 98 Oxygen Delivery Me thod Course Course ED Course: Patient was met in the ambulance bay. A brisk neurological examination was done on the way to CT, this did not show any deficits. Patient had normal speech, he has a slight asymmetry of his mouth which he states is normal. No asymmetry of the remainder of the face. He had normal strength of all [address] was done, read by me, does not show any acute abnormalities: Patient proceeded to CTA of head and neck after lab work was drawn and creatinine was done. I did feel that waiting for creatinine results was more beneficial to this patient at this time given that he was asymptomatic. Remainder of his physical exam was done at this time. Head and neck CTA were unremarkable per preliminary read. EKG, read by me, shows a nonspecific intraventricular block with a pulse of 70. Repeat EKG did show some changes in several leads. I did call Cardiology at [facility] and spoke to Dr. Jauregui, who felt that the differences between the EKGs were likely secondary to 1 being paced and the other 1 not being paced. She recommended I talked to [employer] and have the tech check his pacemaker. I was able to call [employer] and I spoke to Katie Hodges who stated that the patient had a in-person visit on March 23 where he had his leads checked. Leads have been in place since 2016 and she felt that a recheck today was not necessary. CBC showed a slightly low hemoglobin at 12.4, thrombocytopenia a 97,000. Chemistries were unremarkable. Alkaline phosphatase and AST slightly elevated. Initial troponin was within normal limits. Repeat troponin within normal limits. Patient did have slightly low blood pressures while he was here in the upper 90s low 100 systolic, therefore he did receive 500 mL of normal saline. Blood pressure did go up into the 120s systolic, then to the 140s. He remained asymptomatic while he was here. I did speak to Dr. Rowe, neurologist at [facility] who did not feel that this was acute stroke. I am in agreement with that assessment. Vital Signs Vital signs: Initial Vital Signs Temperature 97.3 F L 04/10/23 16:12 Temperature Source Temporal Artery Scan 04/10/23 16:12 Pulse Rate 68 04/10/23 16:12 Respiratory Rate 16 04/10/23 16:12 Blood Pressure 97/57 L 04/10/23 16:12 Blood Pressure Mean 70 04/10/23 16:12 Blood Pressure Position Supine 04/10/23 16:12 Pulse Oximetry 98 04/10/23 16:12 Oxygen Delivery Method Room Air 04/10/23 16:12 Vital Signs Temperature 97.3 F L 04/10/23 16:12 Pulse Rate 68 04/10/23 16:12 Respiratory Rate 16 04/10/23 16:12 Blood Pressure 97/57 L 04/10/23 16:12 Pulse Oximetry 98 04/10/23 16:12 Oxygen Delivery Method Room Air 04/10/23 16:12 Temperature 97.3 F L 04/10/23 16:12 Pulse Rate 75 04/10/23 18:45 Respiratory Rate 16 04/10/23 16:12 Blood Pressure 132/71 04/10/23 18:32 Pulse Oximetry 98 04/10/23 18:45 Oxygen Delivery Method Room Air 04/10/23 16:12 Medical Decision Making MDM Narrative Medical decision making narrative: 82-year-old male with an episode of not feeling well. Unclear what the incident was. Differential diagnosis includes TIA, stroke seizure activity, autonomic dysfunction, cardiac arrhythmia. No evidence of the above were found on workup today. The only thing that we did find was dehydration that responded well to fluid hydration. At this point I do recommend he follow up with primary care provider in the next 48-72 hours to make sure he continues to do well. Return to the ER if symptoms return. Medical Records Medical records reviewed: Yes I reviewed the patient's medical records Lab Data Lab results reviewed: Yes I reviewed the patient's lab results Labs: Lab Results 04/10/23 04/10/23 04/10/23 Range/Units 16:15 16:30 18:12 WBC 8.39 (4.50-11.00) K/uL RBC 4.80 (4.30-5.90) m/uL Hgb 12.4 L (13.5-17.5) gm/dL Hct 39.9 (37.0-53.0) % MCV 83 (80-100) fL MCH 26 (26-34) pg MCHC 31 L (32-36) gm/dL RDW Coeff of Sabino 15.7 H (11.5-15.5) % Plt Count 97 L (140-440) K/uL Neut % (Auto) 74.3 H (42.0-72.0) % Lymph % (Auto) 12.9 L (20-44) % [place] % (Auto) 8.5 (0.0-11.0) % Eos % (Auto) 3.8 (0.0-7.0) % Baso % (Auto) 0.4 (0.0-3.0) % Neut # (Auto) 6.20 (1.7-7.0) K/uL Lymph # (Auto) 1.10 (0.90-2.90) K/uL [place] # (Auto) 0.70 (0.00-0.90) K/UL Eos # (Auto) 0.32 (0.00-0.50) K/uL Baso # (Auto) 0.03 (0.00-0.30) K/uL Abs Immat Gran (auto) 0.01 (0.00-0.30) K/uL Imm/Tot Granulo (auto) 0.1 % Sodium 135 (135-149) mmol/L Potassium 5.0 (3.6-5.1) mmol/L Chloride 96 (96-114) mmol/L Carbon Dioxide 25 (20-32) mmol/L Anion Gap 14 (7-15) mEq/L BUN 38 H (7-30) mg/dL Creatinine 1.2 (0.5-1.5) mg/dL Estimated Creat Clear 48.16 Estimated GFR 60 ml/min Glucose 120 H (60-115) mg/dL Calcium 9.2 (8.4-10.6) mg/dL Total Bilirubin 0.6 (0.1-1.5) mg/dL Direct Bilirubin 0.1 (0.0-0.5) mg/dL AST 66 H (12-35) U/L ALT 31 (4-50) U/L Alkaline Phosphatase 224 H (40-150) U/L Troponin I 0.01 (0.01-0.04) ng/mL C-Reactive Protein 1.1 H (0.5-1.0) mg/dL Total Protein 8.1 (6.0-8.3) g/dL Albumin 3.9 (3.3-5.0) g/dL Ethyl Alcohol (0.01-0.03) % POC Troponin I 0.03 0.01 (0.01-0.04) ng/ml 04/10/23 Range/Units Unknown WBC (4.50-11.00) K/uL RBC (4.30-5.90) m/uL Hgb (13.5-17.5) gm/dL Hct (37.0-53.0) % MCV (80-100) fL MCH (26-34) pg MCHC (32-36) gm/dL RDW Coeff of Sabino (11.5-15.5) % Plt Count (140-440) K/uL Neut % (Auto) (42.0-72.0) % Lymph % (Auto) (20-44) % [place] % (Auto) (0.0-11.0) % Eos % (Auto) (0.0-7.0) % Baso % (Auto) (0.0-3.0) % Neut # (Auto) (1.7-7.0) K/uL Lymph # (Auto) (0.90-2.90) K/uL [place] # (Auto) (0.00-0.90) K/UL Eos # (Auto) (0.00-0.50) K/uL Baso # (Auto) (0.00-0.30) K/uL Abs Immat Gran (auto) (0.00-0.30) K/uL Imm/Tot Granulo (auto) % Sodium (135-149) mmol/L Potassium (3.6-5.1) mmol/L Chloride (96-114) mmol/L Carbon Dioxide (20-32) mmol/L Anion Gap (7-15) mEq/L BUN (7-30) mg/dL Creatinine (0.5-1.5) mg/dL Estimated Creat Clear Estimated GFR ml/min Glucose (60-115) mg/dL Calcium (8.4-10.6) mg/dL Total Bilirubin (0.1-1.5) mg/dL Direct Bilirubin (0.0-0.5) mg/dL AST (12-35) U/L ALT (4-50) U/L Alkaline Phosphatase (40-150) U/L Troponin I (0.01-0.04) ng/mL C-Reactive Protein (0.5-1.0) mg/dL Total Protein (6.0-8.3) g/dL Albumin (3.3-5.0) g/dL Ethyl Alcohol < 0.01 L (0.01-0.03) % POC Troponin I (0.01-0.04) ng/ml Imaging Data CT scan - head: Attestation: I have reviewed the pertinent imaging results. Radiologist's impression: TECHNIQUE: Noncontrast CT of the head with multiplanar reformat in bone and soft tissue algorithms. COMPARISON: CT head dated 12/13/2021. FINDINGS: No acute intracranial hemorrhage. The hess-white matter interface is preserved. Mild global parenchymal volume loss with ex-vacuo prominence of the supratentorial ventricles. The skull base and calvarium are within normal limits. There is evidence of prior cataract surgery. Paranasal sinuses and mastoid air cells are predominantly clear. IMPRESSION: No acute intracranial abnormality. ECG Data Attestation: I personally reviewed and interpreted this ECG as follows: Discharge Plan Discharge Clinical Impression: Dizziness, Dehydration Patient Disposition: Home, Self-Care Condition: Stable Additional Instructions: Your workup today found no evidence of stroke or heart attack. We did find evidence of dehydration which responded well to fluids. Recommend you make sure to stay well hydrated especially when you have days where he worked out. Recommend he follow up with primary care provider in the next 2-3 days to make sure your doing well. Return to the ER if your symptoms return. Prescriptions: No Action atorvastatin 40 mg tablet 40 mg PO QPM cholecalciferol (vitamin D3) 125 mcg (5,000 unit) capsule 5,000 unit PO DAILY clopidogrel 75 mg tablet 75 mg PO DAILY duloxetine 20 mg capsule,delayed release(DR/EC) 20 mg PO BID empagliflozin 10 mg tablet 10 mg PO DAILY furosemide 40 mg tablet 40 mg PO .COMPLEX PRN Rx Instructions: 40 mg PO FOR WEIGHT GAIN OF 3 LBS OVERNIGHT OR 5 LBS IN ONE WEEK PRN; FOR WEIGHT GAIN OF 3 LBS OVERNIGHT OR 5 LBS IN ONE WEEK metformin 1,000 mg tablet 1,000 mg PO BID Patient Comments: TAKE 1 TABLET BY MOUTH TWICE DAILY WITH MEALS Ozempic 0.25 mg or 0.5 mg(2 mg/1.5 mL) pen injector 1 mg SUBCUT .weekly Patient Comments: INJECT 1 MG SUBCUTANEOUS ONCE WEEKLY. vitamin E (dl, acetate) 180 mg (400 unit) capsule 400 unit PO DAILY gabapentin 300 mg capsule 300 mg PO 3XD Follow Up/Referrals: Basilio Conway MD [Primary Care Provider] - Stand Alone Forms: [employer] Info Instructions
[2023-04-10 16:41] LABS: Basophils Absolute Auto 0.03 K/uL (0.00-0.30); Basophils Percent Auto 0.4 % (0.0-3.0); Eosinophils Absolute Auto 0.32 K/uL (0.00-0.50); Eosinophils Percent Auto 3.8 % (0.0-7.0); Hematocrit 39.9 % (37.0-53.0); Hemoglobin* 12.4 gm/dL (13.5-17.5); Immature Granulocytes Abs Auto 0.01 K/uL (0.00-0.30); Immature Granulocytes Pct Auto 0.1 %; Lymphocytes Percent Auto 12.9 % (20-44); Mean Corpuscular HGB Conc 31 gm/dL (32-36); Mean Corpuscular Hemoglobin 26 pg (26-34); Mean Corpuscular Volume 83 fL (80-100); Monocytes Percent Auto 8.5 % (0.0-11.0); Neutrophils Percent Auto 74.3 % (42.0-72.0); Platelet Count* 97 K/uL (140-440); RDW Coefficient of Variation % 15.7 % (11.5-15.5); Slide Review Reflex No; White Blood Count* 8.39 K/uL (4.50-11.00)
[2023-04-10 16:48] LABS: Troponin, Point-of-Care* 0.03 ng/ml (0.01-0.04)
[2023-04-10 17:04] LABS: Albumin* 3.9 g/dL (3.3-5.0); Chloride* 96 mmol/L (96-114)
[2023-04-10 17:05] LABS: Sodium* 135 mmol/L (135-149)
[2023-04-10 17:07] LABS: Creatinine* 1.2 mg/dL (0.5-1.5); Est. Creatinine Clearance* 48.16; Estimated Glomerular Filt Rate 60 ml/min
[2023-04-10 17:08] LABS: Alanine Aminotransferase* 31 U/L (4-50); Alkaline Phosphatase* 224 U/L (40-150); Anion Gap 14 mEq/L (7-15); Aspartate Amino Transferase* 66 U/L (12-35); Bilirubin Direct* 0.1 mg/dL (0.0-0.5); Bilirubin Total* 0.6 mg/dL (0.1-1.5); Blood Urea Nitrogen* 38 mg/dL (7-30); Calcium* 9.2 mg/dL (8.4-10.6); Carbon Dioxide* 25 mmol/L (20-32); Glucose* 120 mg/dL (60-115); Total Protein* 8.1 g/dL (6.0-8.3)
[2023-04-10 17:10] LABS: C Reactive Protein* 1.1 mg/dL (0.5-1.0)
[2023-04-10 17:20] LABS: Troponin I* 0.01 ng/mL (0.01-0.04)
[2023-04-10] MEDS: 0.9 % SODIUM CHLORIDE 500 ML 500 ML IV (17:24)
[2023-04-10 18:25] LABS: Troponin, Point-of-Care* 0.01 ng/ml (0.01-0.04)
[2023-04-10 18:47] LABS: Ethanol* < 0.01 % (0.01-0.03)
== END 2023-04-10 20:44 | disposition home or self-care (01) ==
PROVIDERS: Emergency Provider Family Medicine; PCP Family Medicine
DX: E86.0 Dehydration (principal); R42 Dizziness and giddiness
CPT/HCPCS: 36415; 70450; 70496; 70498; 80048; 80076; 82077; 84484; 85025; 86140; 93005; 94761; 96360; 99284; 99285; J7120; Q9967

== ENCOUNTER 2023-04-13 14:00 | Outpatient (RCR) | payer MEDICARE, SELFPAY | END 2023-08-11 23:59 | disposition home or self-care (01) | PROVIDERS: PCP Family Medicine; Visit Provider Urology | DX: N39.3 Stress incontinence (female) (male) (principal); R29.898 Other symptoms and signs involving the musculoskeletal system; Z98.890 Other specified postprocedural states; Z51.89 Encounter for other specified aftercare | CPT/HCPCS: 97110; 97140; 97162; 97163 ==

== ENCOUNTER 2023-05-07 07:54 | Emergency (ER) | payer MEDICARE, SELFPAY ==
[2023-05-07] VITALS (17 sets, daily range): BP systolic 133–152; BP diastolic 78–93; PULSE 62–71; RESP 18; TEMP 35.9; O2SAT 94–100; BMI 27.3
--- NOTE | 2023-05-07 08:33 | CRLHL7_ITS ---
For Patients: As a result of the Century Cures Act, medical imaging exams and procedure reports are released immediately into your electronic medical record. You may view this report before your referring provider. If you have questions, please contact your health care provider. Indication: Dizziness, weakness with bilateral leg numbness Technique: Volumetric multidetector CT images of the head were obtained without the administration of low osmolar intravenous contrast. Comparison: None available Findings: There is no intra-axial or extra-axial fluid collection. There is no mass effect or midline shift. There is age-related cortical atrophy with [id number] sulcal widening and ex vacuo dilatation of the lateral ventricles. There are chronic small vessel disease changes in the subcortical and periventricular white matter without lost hess-white differentiation. The orbits and their contents are grossly within normal limits. The bony calvarium is grossly intact. Postoperative changes of the paranasal sinuses are appreciated with likely reconstruction of the nasal septum. The mastoid air cells are well aerated. 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 Please note that all CT scans at this facility use dose modulation, iterative reconstruction, and/or weight-based dosing when appropriate to reduce radiation dose to as low as reasonably achievable. Dictated by Onel Santana MD @ 05/07/2023 9:28:23 AM (Electronically Signed)
--- NOTE | 2023-05-07 08:33 | CRLHL7_ITS ---
For Patients: As a result of the Century Cures Act, medical imaging exams and procedure reports are released immediately into your electronic medical record. You may view this report before your referring provider. If you have questions, please contact your health care provider. Indication: Weakness, bilateral leg numbness Technique: Volumetric multidetector CT images of the lumbar spine were obtained without the administration of IV contrast. Comparison: None available. Findings: Chronic compression deformity of the superior L1 endplate is appreciated. Additional minimal endplate subchondral cystic changes and Schmorl`s defects. There is hemangioma within the L5 level. There is preserved lumbar lordosis without significant spondylolisthesis. There is moderate multilevel degenerative disc disease with disc height loss and marginal osteophyte formation. There is no significant spinal canal stenosis or neural foraminal narrowing. There is no displaced fracture or dislocation. The paraspinous soft tissues are grossly within normal limits. Impression: Somewhat age-indeterminate deformity of the superior L1 level. Moderate degenerative changes of the lumbar spine without acute osseous abnormality. Please note that all CT scans at this facility use dose modulation, iterative reconstruction, and/or weight-based dosing when appropriate to reduce radiation dose to as low as reasonably achievable. Dictated by Onel Santana MD @ 05/07/2023 9:31:07 AM (Electronically Signed)
--- NOTE | 2023-05-07 08:35 | ED.GENADULT ---
HPI - General Adult General Date Seen: 05/07/23 Chief complaint: Dizziness/Vertigo Stated complaint: dizzy,nausea Time Seen by Provider: 05/07/23 08:01 History of Present Illness HPI narrative: This is a very pleasant 83-year-old gentleman who is accompanied to the ER this morning from his home by his daughter. He has a complex past medical history including previous left MCA stroke. On Plavix. On atorvastatin. He has some chronic gait instability related to that for the past couple of years. He also has a history of BPPV that happens occasionally. He also has a history of aortic stenosis status post TAVR. He also has a history of type 2 diabetes, long-term bilateral lower extremity peripheral neuropathy with numbness and burning in his feet. Also history of pacemaker. He has a distant history of melena and GI bleed but has not had any recent black or bloody stools. He has a history of cardiomyopathy, CHF, and uses furosemide occasionally, but not really in the past couple of months. Sleep apnea on CPAP. History of Nose bleeds. He was seen here in the ER a month or 2 ago for an episode of dizziness and is orientation that occurred while he was driving. He had a workup that was negative. He apparently improved after IV fluids and his symptoms were attributed to dehydration. He and his daughter say that he really work hard to drink and stay hydrated. He always has a bottle of water with him. He has not been having any trouble with his oral intake lately. No vomiting or diarrhea. No other recent fever, cough, cold or illness. He has been feeling at his baseline lately. He does have gait instability and uses a cane to walk. He goes to exercise and do balanced classes couple of times per week, when he is able to get to the gym. He normally sleeps in bed cut. He sleeps on his back because it is his position of comfort for his vertigo. He slept normally last night. When he woke up this morning he had felt like something was wrong when he was laying in bed. He can not really quantify it. He has had a feeling like there was a problem. He says he thinks the problem was ?in his head? meaning that he thought he might be having a stroke, not that the problem was psychological. He felt vaguely dizzy and slight spinning but not exactly vertigo. When he tried to get out of bed he was feeling very unsteady. Again not vertigo, not fainting, just trouble with balance. He noticed that his legs were numb from the waist down, bilaterally. This is different than his normal peripheral neuropathy where he has numbness affecting the bottoms of his feet. The numbness in his legs lasted a few minutes. He thought they might be weak but he was able to move them. He says he had to force them to move. No numbness or weakness in his arms. He was able to get himself out of bed and sit in his chair. He was feeling unsteady. Overall the unsteadiness lasted a while, perhaps 10 or 20 minutes and then got better, but still has not completely resolved. He feels more unsteady when he standing up and better when he is sitting or laying down. No other symptoms. No chest pain. No palpitations. No shortness of breath. No headache. No blurry vision or diplopia. No numbness or weakness in his arms. No slurred speech. No facial droop. No abdominal pain. No nausea or vomiting. Normal bowel movements lately and this morning. No urinary symptoms. No fevers or chills. No swelling in his legs. He rarely uses furosemide does not use that in the past couple of months. He is otherwise taking his other prescription medications. No changes to his doses lately. His is at her baseline this morning. No suspicion for carbon monoxide exposure. Related Data Home Medications Medication Instructions Recorded Confirmed atorvastatin 40 mg tablet 40 mg PO QPM 12/22/21 05/07/23 cholecalciferol (vitamin D3) 125 5,000 unit PO DAILY 12/22/21 05/07/23 mcg (5,000 unit) capsule clopidogrel 75 mg tablet 75 mg PO DAILY 12/22/21 05/07/23 empagliflozin 10 mg tablet 10 mg PO DAILY 12/22/21 05/07/23 furosemide 40 mg tablet 40 mg PO .COMPLEX PRN 12/22/21 05/07/23 metformin 1,000 mg tablet 1,000 mg PO BID 12/22/21 05/07/23 semaglutide 0.25 mg or 0.5 mg (2 1 mg subcut .weekly 12/22/21 05/07/23 mg/1.5 mL) subcutaneous pen injector (Ozempic) vitamin E (dl, acetate) 180 mg 400 unit PO DAILY 12/22/21 05/07/23 (400 unit) capsule gabapentin 300 mg capsule 300 mg PO 3XD 04/10/23 05/07/23 Allergies Allergy/AdvReac Type Severity Reaction Status Date / Time adhesive tape Allergy Unknown Verified 04/10/23 16:19 latex Allergy Verified 04/10/23 16:19 [facility] Medical History Hearing loss ?H91.90 - Unspecified hearing loss, unspecified ear (ICD-10) Heart failure ?I50.9 - Heart failure, unspecified (ICD-10) 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 - Cerebral infarction due to unspecified occlusion or stenosis of left middle cerebral artery (ICD-10) Cardiac pacemaker ?Z95.0 - Presence of cardiac pacemaker (ICD-10) Obstructive sleep apnea ?G47.33 - Obstructive sleep apnea (adult) (pediatric) (ICD-10) Ischemic cardiomyopathy ?I25.5 - Ischemic cardiomyopathy (ICD-10) Left bundle branch block ?I44.7 - Left bundle-branch block, unspecified (ICD-10) Sensorineural hearing loss ?H90.5 - Unspecified sensorineural hearing loss (ICD-10) Adenomatous colon polyp ?D12.6 - Benign neoplasm of colon, unspecified (ICD-10) Neuropathy ?G62.9 - Polyneuropathy, unspecified (ICD-10) Prostate cancer ?C61 - Malignant neoplasm of prostate (ICD-10) Hyperlipidemia ?E78.5 - Hyperlipidemia, unspecified (ICD-10) Hypertension ?I10 - Essential (primary) hypertension (ICD-10) Coronary artery disease ?I25.10 - Atherosclerotic heart disease of [place] coronary artery without angina pectoris (ICD-10) Diabetes mellitus ?E11.9 - Type 2 diabetes mellitus without complications (ICD-10) Surgical History Status post transcatheter aortic valve replacement (TAVR) using bioprosthesis ?Z95.3 - Presence of xenogenic heart valve (ICD-10) S/P hernia repair ?Z98.890 - Other specified postprocedural states (ICD-10) ?Z87.19 - Personal history of other diseases of the digestive system (ICD-10) S/P TAVR (transcatheter aortic valve replacement) ?Z95.2 - Presence of prosthetic heart valve (ICD-10) Social History Smoking Status: Never smoker Do you use any of these nicotine containing products: None Second hand tobacco smoke exposure: No How often do you have a drink containing alcohol: never How often do you have six or more drinks on one occasion: Never AUDIT-C Alcohol total score: 0 Non-prescribed substance use: denies use Caffeine: Yes service: No Exam Narrative: Exam Narrative: Constitutional: Appears well-developed and well-nourished. Alert. Conversant. Mildly hard of hearing but very conversant and pleasant. Non toxic. HENT: Head: Atraumatic. Nose: Nose normal. Mouth/Throat: Oral mucosa is clear but mucous membranes are quite dry.. no trismus. Pharynx normal. Tonsils symmetric. No tonsillar enlargement, erythema, or exudate. Tongue protrudes in the midline. Palate elevates symmetrically. Eyes: Conjunctivae normal. EOM normal. Pupils equal, round, and reactive to light. No scleral icterus. Neck: Normal range of motion. Neck supple. No tracheal deviation present. Cardiovascular: Normal rate, regular rhythm. No gallop. No friction rub. No murmur heard. Symmetric radial and DP artery pulses Pulmonary/Chest: Effort normal. No stridor. No respiratory distress. No wheezes. No rales. No rhonchi . No tenderness. Abdominal: Soft. No distension. No mass. No tenderness. No rebound. No guarding. Musculoskeletal: RUE: Normal range of motion. No tenderness. No deformity LUE: Normal range of motion. No tenderness. No deformity RLE: Normal range of motion. No edema. No tenderness. No deformity LLE: Normal range of motion. No edema. No tenderness. No deformity Lymph: No cervical adenopathy. Neurological: Mental status normal. Attention normal. Alert and oriented x3. GCS 15. Memory normal. Speech fluent. Cognition normal. Cranial Nerves intact II-XII except I did not formally test gag or visual acuity. EOMI. Palate elevates symmetrically and tongue protrudes in the midline. Strength: 5/5 trapezius on the right and left 5/5 deltoid on the right and left 5/5 biceps on the right and left 5/5 triceps on the right and left 5/5 linen controller on the right and left 5/5 thumb opposition on the right and left 5/5 finger abduction on the right and left 5/5 hip flexors (L3) on the right and left 5/5 quadriceps (L4) on the right and left 5/5 tibialis anterior on the right and left 5/5 EHL (L5) on the right and left 5/5 gastrocnemius (S1) on the right and left 5/5 hamstring on the right and left Sensation intact to light touch in both upper extremities (C4-T1) Sensation intact to light touch in Both lower extremities (L4-S1). DTRs 2/4 bilaterally in the biceps and patella. Finger to nose and coordination normal. Skin: Skin is warm and dry. No rash noted. No pallor. Normal capillary refill. Psychiatric: Normal mood. Normal affect. Const: Vital Signs, click to edit/add: Vital Signs - 24 hr 05/07/23 08:00 05/07/23 08:03 05/07/23 08:04 Temperature 96.6 F L Pulse Rate 62 Pulse Rate [Pulse Oximeter] 64 Respiratory Rate 18 Blood Pressure 133/83 Blood Pressure [Ri ght Upper Arm] 133/83 Pulse Oximetry 95 94 Oxygen Delivery Me thod Room Air 05/07/23 08:15 05/07/23 08:31 05/07/23 09:03 Temperature Pulse Rate 64 68 Pulse Rate [Pulse Oximeter] Respiratory Rate Blood Pressure 141/93 H Blood Pressure [Ri ght Upper Arm] Pulse Oximetry 97 97 Oxygen Delivery Me thod 05/07/23 09:15 05/07/23 09:30 05/07/23 09:31 Temperature Pulse Rate 68 69 68 Pulse Rate [Pulse Oximeter] Respiratory Rate Blood Pressure 147/79 H Blood Pressure [Ri ght Upper Arm] Pulse Oximetry 95 96 96 Oxygen Delivery Me thod 05/07/23 09:45 05/07/23 10:00 05/07/23 10:02 Temperature Pulse Rate 71 66 66 Pulse Rate [Pulse Oximeter] Respiratory Rate Blood Pressure 150/78 H Blood Pressure [Ri ght Upper Arm] Pulse Oximetry 100 99 96 Oxygen Delivery Me thod 05/07/23 10:03 05/07/23 10:15 05/07/23 10:30 Temperature Pulse Rate 66 69 70 Pulse Rate [Pulse Oximeter] Respiratory Rate Blood Pressure Blood Pressure [Ri ght Upper Arm] Pulse Oximetry 99 97 96 Oxygen Delivery Me thod 05/07/23 10:31 05/07/23 10:45 Temperature Pulse Rate 69 68 Pulse Rate [Pulse Oximeter] Respiratory Rate Blood Pressure 152/84 H Blood Pressure [Ri ght Upper Arm] Pulse Oximetry 95 98 Oxygen Delivery Me thod Course Reevaluation(s) Reevaluation #1: [id number]. Doing well. Sipping water. Not feeling weak at this time. Discussed labs and imaging findings so far with the patient and his daughter. Vital Signs Vital signs: Initial Vital Signs Temperature 96.6 F L 05/07/23 08:00 Temperature Source Temporal Artery Scan 05/07/23 08:00 Pulse Rate 64 05/07/23 08:00 Respiratory Rate 18 05/07/23 08:00 Blood Pressure 133/83 05/07/23 08:00 Blood Pressure Mean 99 05/07/23 08:00 Blood Pressure Position Supine 05/07/23 08:00 Pulse Oximetry 95 05/07/23 08:00 Oxygen Delivery Method Room Air 05/07/23 08:00 Vital Signs Temperature 96.6 F L 05/07/23 08:00 Pulse Rate 64 05/07/23 08:00 Respiratory Rate 18 05/07/23 08:00 Blood Pressure 133/83 05/07/23 08:00 Pulse Oximetry 95 05/07/23 08:00 Oxygen Delivery Method Room Air 05/07/23 08:00 Temperature 96.6 F L 05/07/23 08:00 Pulse Rate 68 05/07/23 10:45 Respiratory Rate 18 05/07/23 08:00 Blood Pressure 152/84 H 05/07/23 10:31 Pulse Oximetry 98 05/07/23 10:45 Oxygen Delivery Method Room Air 05/07/23 08:00 Medications Administered Medications: Discontinued Medications Generic Name Dose Route Start Last Admin Trade Name Freq PRN Reason Stop Dose Admin Sodium Chloride 1,000 mls @ 1,000 mls/hr 05/07/23 08:45 05/07/23 10:10 0.9 % Sodium Chloride 1000 Ml IV 05/07/23 09:44 Infused .Q1H [facility] Infusion Medical Decision Making MDM Narrative Medical decision making narrative: This is a very pleasant 83-year-old gentleman presenting to the ER today with an episode of dizziness, paresthesias affecting both of his legs, and also some generalized weakness. Differential is quite broad. Patient has a difficult time to even describing exactly what his symptoms were or the sequence of events. In terms of dizziness, consider possible for to go. There was some ?spinning? component to the dizziness but is not similar to his previous episodes of BPPV. There is also some positional/possible orthostatic component to the dizziness. He is no longer dizzy here in the ER. Noncontrast head CT is obtained and is negative for any sign of intracranial hemorrhage, edema, or any evidence for any clear subacute stroke. MRI would be more sensitive for an acute ischemic CVA or in particular posterior fossa findings. However the patient's episode came in when it is now completely resolved. At this point the unlikely to have represented TIA so would hold off on admission or further workup for now. He is not having any headache or neck pain to suggest vertebral artery dissection. He is already on Plavix. Consider possible hypotension or orthostatic symptoms. Blood pressure when he presented here to the ER was normal. He does feel better after L of IV fluid and oral hydration. Symptoms are not resolved. It is possible the dehydration orthostasis could be playing a role. However he is not actually currently on a loop diuretic and he has been working hard to stay hydrated and drinking lots of water lately. Labs show no evidence for anemia, ACS, hyponatremia, hypokalemia, hypoglycemia, or other clear metabolic or infectious cause for his episode of dizziness. Urinalysis is normal. EKG shows functional pacemaker. No history of palpitations to suggest arrhythmia or pacemaker malfunction. Per records patient recently had his pacemaker interrogated and was function normally. At this point I do not think he needs a repeat pacemaker interrogation today. Overall the patient is symptom medically improved after IV fluids and p.o. challenge here in the ER. Discussed options with the patient and his daughter. These would include admission for monitoring and further workup to consider brain MRI versus discharging home with careful monitoring there. We all agree that discharge home would be most appropriate given his improvement, stable vitals, and reassuring workup so far. Precautions for return to the ER reviewed. Lab Data Labs: Lab Results 05/07/23 05/07/23 Range/Units 08:42 11:05 WBC 8.68 (4.50-11.00) K/uL RBC 4.95 (4.30-5.90) m/uL Hgb 12.8 L (13.5-17.5) gm/dL Hct 41.0 (37.0-53.0) % MCV 83 (80-100) fL MCH 26 (26-34) pg MCHC 31 L (32-36) gm/dL RDW Coeff of Sabino 15.8 H (11.5-15.5) % Plt Count 139 L (140-440) K/uL Neut % (Auto) 74.4 H (42.0-72.0) % Lymph % (Auto) 13.5 L (20-44) % [place] % (Auto) 8.4 (0.0-11.0) % Eos % (Auto) 3.1 (0.0-7.0) % Baso % (Auto) 0.3 (0.0-3.0) % Neut # (Auto) 6.50 (1.7-7.0) K/uL Lymph # (Auto) 1.20 (0.90-2.90) K/uL [place] # (Auto) 0.70 (0.00-0.90) K/UL Eos # (Auto) 0.27 (0.00-0.50) K/uL Baso # (Auto) 0.03 (0.00-0.30) K/uL Abs Immat Gran (auto) 0.03 (0.00-0.30) K/uL Imm/Tot Granulo (auto) 0.3 % Sodium 139 (135-149) mmol/L Potassium 4.9 (3.6-5.1) mmol/L Chloride 104 (96-114) mmol/L Carbon Dioxide 27 (20-32) mmol/L Anion Gap 8 (7-15) mEq/L BUN 38 H (7-30) mg/dL Creatinine 1.2 (0.5-1.5) mg/dL Estimated Creat Clear 42.84 Estimated GFR 60 ml/min Glucose 112 (60-115) mg/dL Lactate 1.5 (0.5-1.9) mmol/L Calcium 9.6 (8.4-10.6) mg/dL Troponin I 0.02 (0.01-0.04) ng/mL Urine Color Yellow (Yellow) Urine Appearance Clear (Clear) Urine pH 6.0 (5.0-8.5) Ur Specific [place] 1.015 (1.000-1.030) Urine Protein Negative (Negative) Urine Glucose (UA) 2+ A (Negative) Urine Ketones Negative (Negative) Urine Blood Negative (Negative) Urine Nitrite Negative (Negative) Urine Bilirubin Negative (Negative) Urine Urobilinogen 0.2 (0.2-1.0) Ur Leukocyte Esterase Negative (Negative) Urine RBC 0-2 (0-2) Urine WBC 0-2 (0-5) Ur Squamous Epith Cells Few (None-Few) Urine Bacteria None (None) Imaging Data CT scan - head: Attestation: I have reviewed the pertinent imaging results. 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 CT L spine: Attestation: I have reviewed the pertinent imaging results. Radiologist's impression: Impression: Somewhat age-indeterminate deformity of the superior L1 level. Moderate degenerative changes of the lumbar spine without acute osseous abnormality. Discharge Plan Discharge Clinical Impression: Dizziness, Paresthesia of bilateral legs Patient Disposition: Home, Self-Care Condition: Stable Instructions: Dizziness (ED) Additional Instructions: As we discussed, please continue on your regular medications. If you have any more spells of dizziness, weakness, numbness in your legs, or any problems, return to the ER immediately for recheck. Please follow-up with your regular doctor for recheck within the next 3-5 days. Prescriptions: No Action atorvastatin 40 mg tablet 40 mg PO QPM cholecalciferol (vitamin D3) 125 mcg (5,000 unit) capsule 5,000 unit PO DAILY clopidogrel 75 mg tablet 75 mg PO DAILY empagliflozin 10 mg tablet 10 mg PO DAILY furosemide 40 mg tablet 40 mg PO .COMPLEX PRN Rx Instructions: 40 mg PO FOR WEIGHT GAIN OF 3 LBS OVERNIGHT OR 5 LBS IN ONE WEEK PRN; FOR WEIGHT GAIN OF 3 LBS OVERNIGHT OR 5 LBS IN ONE WEEK metformin 1,000 mg tablet 1,000 mg PO BID Patient Comments: TAKE 1 TABLET BY MOUTH TWICE DAILY WITH MEALS Ozempic 0.25 mg or 0.5 mg(2 mg/1.5 mL) pen injector 1 mg SUBCUT .weekly Patient Comments: INJECT 1 MG SUBCUTANEOUS ONCE WEEKLY. vitamin E (dl, acetate) 180 mg (400 unit) capsule 400 unit PO DAILY gabapentin 300 mg capsule 300 mg PO 3XD Follow Up/Referrals: Basilio Conway MD [Primary Care Provider] - Stand Alone Forms: [employer] Info Instructions
[2023-05-07 08:54] LABS: Lactate* 1.5 mmol/L (0.5-1.9)
[2023-05-07 08:59] LABS: Basophils Absolute Auto 0.03 K/uL (0.00-0.30); Basophils Percent Auto 0.3 % (0.0-3.0); Eosinophils Absolute Auto 0.27 K/uL (0.00-0.50); Eosinophils Percent Auto 3.1 % (0.0-7.0); Hemoglobin* 12.8 gm/dL (13.5-17.5); Immature Granulocytes Abs Auto 0.03 K/uL (0.00-0.30); Immature Granulocytes Pct Auto 0.3 %; Lymphocytes Percent Auto 13.5 % (20-44); Mean Corpuscular HGB Conc 31 gm/dL (32-36); Mean Corpuscular Hemoglobin 26 pg (26-34); Mean Corpuscular Volume 83 fL (80-100); Monocytes Percent Auto 8.4 % (0.0-11.0); Neutrophils Percent Auto 74.4 % (42.0-72.0); Platelet Count* 139 K/uL (140-440); RDW Coefficient of Variation % 15.8 % (11.5-15.5); Red Blood Count 4.95 m/uL (4.30-5.90); Slide Review Reflex No; White Blood Count* 8.68 K/uL (4.50-11.00)
[2023-05-07] MEDS: 0.9 % SODIUM CHLORIDE 1000 ml 1,000 ML IV (09:06)
[2023-05-07 09:09] LABS: Chloride* 104 mmol/L (96-114); Potassium* 4.9 mmol/L (3.6-5.1); Sodium* 139 mmol/L (135-149)
[2023-05-07 09:11] LABS: Creatinine* 1.2 mg/dL (0.5-1.5); Est. Creatinine Clearance* 42.84; Estimated Glomerular Filt Rate 60 ml/min
[2023-05-07 09:12] LABS: Anion Gap 8 mEq/L (7-15); Blood Urea Nitrogen* 38 mg/dL (7-30); Calcium* 9.6 mg/dL (8.4-10.6); Carbon Dioxide* 27 mmol/L (20-32); Glucose* 112 mg/dL (60-115)
[2023-05-07 09:24] LABS: Troponin I* 0.02 ng/mL (0.01-0.04)
[2023-05-07 11:10] LABS: Appearance Urine Clear (Clear); Bilirubin Urine Negative (Negative); Blood Urine Negative (Negative); Color Urine Yellow (Yellow); Glucose Urine 2+ (Negative); Ketones Urine Negative (Negative); Leukocyte Esterase Urine Negative (Negative); Nitrite Urine Negative (Negative); Protein Urine Negative (Negative); Specific Gravity Urine 1.015 (1.000-1.030); Urobilinogen Urine 0.2 (0.2-1.0)
[2023-05-07 11:48] LABS: RBC Urine 0-2 (0-2); Squamous Epithelial Cell Urine Few (None-Few); WBC Urine 0-2 (0-5)
== END 2023-05-07 12:23 | disposition home or self-care (01) ==
PROVIDERS: Emergency Provider Emergency Medicine; PCP Family Medicine
DX: R42 Dizziness and giddiness (principal); R20.2 Paresthesia of skin
CPT/HCPCS: 36415; 70450; 72131; 80048; 81001; 83605; 84484; 85025; 99284; 99285; J7030

== ENCOUNTER 2023-11-15 11:00 | Outpatient (RCR) | payer MEDICARE, SELFPAY | END 2024-03-14 23:59 | disposition home or self-care (01) | PROVIDERS: PCP Family Medicine; Visit Provider Family Medicine | DX: N39.3 Stress incontinence (female) (male) (principal); Z51.89 Encounter for other specified aftercare | CPT/HCPCS: 97110; 97116; 97140; 97162 ==

== ENCOUNTER 2024-03-29 13:48 | Outpatient (CLI) | payer MEDICARE, SELFPAY ==
--- OUTSIDE RECORDS SUMMARY | 2024-04-01 18:35 | XMS_ITS | Referral Summary ---
Author Organization [facility] Address [address] [place] [address] Care Team Providers Care Associate Drafter Name Role Phone No Contact, Pcp Primary Care Provider Unavailabl e Source Comments Patient records contain information from all sites at [facility]. For routine questions regarding patient records, call [phone] during business hours, M-F 8:00 AM - 5:00 PM Central Time. Record requests for emergency care only can be directed to [phone] at any time.[facility] Allergies Active Allergy Reactions Criticality Noted [...] as needed for chest pain. 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 Not on file Not on file Not on file Last Filed Vital Signs Vital Sign Reading Time Taken Comments Blood Pressure 110/57 07/31/2021 3:45 PM BANBURY MACHINE OPERATOR Pulse 67 07/31/2021 3:45 PM BANBURY MACHINE OPERATOR Temperature 36.3 ??C (97.3 ??F) 07/31/2021 3:45 PM CS T Respiratory Rate 16 07/31/2021 10:30 AM BANBURY MACHINE OPERATOR Oxygen Saturation 98% 07/31/2021 3:45 PM BANBURY MACHINE OPERATOR Inhaled Oxygen Concentration - - Weight 80 kg (176 lb 5.9 oz) 07/30/2021 1:00 AM BANBURY MACHINE OPERATOR Height 172.5 cm (5' 7.91) 07/31/2021 11:[address] Body Mass Index 26.89 07/30/2021 1:00 AM BANBURY MACHINE OPERATOR Plan of Treatment Not on file Medical Devices Implanted Type Area Cake Stripper Device Identifier Shelf Expiration Date Model / Serial / Lot Bsc [id number] Acuity X4 Spiral Short [id number] Implanted:09/2016 (Quantity not on file) Cardiac Lead [employer] 4674 ACUITY X4 SPIRAL SHORT / [id number] / Bs [id number] Ingevity Mri [id number] Implanted:09/2016 (Quantity not on file) Cardiac Lead [employer] 7741 INGEVITY MRI / [id number] / Bsc 7742 Ingevity Mri [id number] Implanted:09/2016 (Quantity not on file) Cardiac Lead [employer] 7742 INGEVITY MRI / [id number] / Cardiac Lead-10/14/2016 Implanted:10/2016 (Quantity not on file) Cardiac Lead Heart [employer] [id number] [id number] / / Cardiac Lead-10/14/2016 Implanted:10/2016 (Quantity not on file) Cardiac Lead Heart [employer] [id number] [id number] / / Cardiac Lead-10/14/2016 Implanted:10/2016 (Quantity not on file) Cardiac Lead Heart [employer] [id number] / / [facility] U128 Valitude [id number] Implanted:09/2016 (Quantity not on file) Pacemaker [employer] U128 VALITUDE / [id number] / Pacemaker-10/14 Implanted:10/2016 (Quantity not on file) Pacemaker Chest [employer] U128 VALITUDE PATHOLOGY TEACHER-P [id number] / / Procedures Procedure Name Priority Date/Time Associated Diagnosis Comments BASIC METABOLIC PANEL, S/P Routine 07/31/2021 9:05 AM BANBURY MACHINE OPERATOR HEMOGLOBIN A1C, B STAT 07/29/2021 2:5 4 PM BANBURY MACHINE OPERATOR from Last 3 Months or Most Recently Relevant to Health Maintenance Results * (ABNORMAL) Basic Metabolic Panel (07/31/2021 9:05 AM BANBURY MACHINE OPERATOR) Potassium, S 4.8 3.6 - 5.2 mmol/L 07/31/2021 11:24 AM BANBURY MACHINE OPERATOR DTL Sodium, S 135 135 - 145 mmol/L 07/31/2021 11:24 AM BANBURY MACHINE OPERATOR DTL Chloride, S 101 98 - 107 mmol/L 07/31/2021 11:24 AM BANBURY MACHINE OPERATOR DTL Bicarbonate, S 23 22 - 29 mmol/L 07/31/2021 11:24 AM BANBURY MACHINE OPERATOR DTL Anion Gap 11 7 - 15 07/31/2021 11:24 AM BANBURY MACHINE OPERATOR DTL BUN (Blood Urea Nitrogen), S 36(H) 8 - 24 mg/dL 07/31/2021 11:24 AM BANBURY MACHINE OPERATOR DTL Creatinine 1.27 0.74 - 1.35 mg/dL 07/31/2021 11:24 AM BANBURY MACHINE OPERATOR DTL eGFR-Non Black/ 52(L) >=60 mL/min/BSA 07/31/2021 11:24 AM BANBURY MACHINE OPERATOR DTL Comment: ----ADDITIONAL INFORMATION---- Estimated GFR calculated using the 2009 CKD_EPI creatinine equation. eGFR-Black/Afri can Panamanian 60 >=60 mL/min/BSA 07/31/2021 11:24 AM BANBURY MACHINE OPERATOR DTL Comment: ----ADDITIONAL INFORMATION---- Estimated GFR calculated using the 2009 CKD_EPI creatinine equation. Calcium, Total, S 9.6 8.8 - 10.2 mg/dL 07/31/2021 11:24 AM BANBURY MACHINE OPERATOR DTL Glucose, S 170(H) 70 - 140 mg/dL 07/31/2021 11:24 AM BANBURY MACHINE OPERATOR DTL Blood (Blood, Venous) 07/31/2021 9:05 AM BANBURY MACHINE OPERATOR 07/31/2021 9:21 AM BANBURY MACHINE OPERATOR Amrik Shankar M.D. LAB BLOOD ADD-ON Final Result [address] [address], [facility] [address] [place] [address] * (ABNORMAL) Hemoglobin A1c (07/29/2021 2:54 PM BANBURY MACHINE OPERATOR) Hemoglobin A1c, B 6.4(H) 4.0 - 5.6 % 07/29/2021 3:41 PM BANBURY MACHINE OPERATOR DTL Comment: Hemoglobin A1c values of 5.7-6.4 percent indicate an increased risk for developing diabetes mellitus. In diabetic patients, HbA1c goals should be discussed with healthcare provider. Blood (Blood, Venous) 07/29/2021 2:54 PM BANBURY MACHINE OPERATOR 07/29/2021 3:10 PM BANBURY MACHINE OPERATOR us Iliana Montesinos M.D. LAB BLOOD ADD-ON Final Resu lt [facility] [address] [place] [address], [place] [facility] [address] [place] [address] from Last 3 Months or Most Recently Relevant to Health Maintenance Insurance [facility] [place] [address] Advance Directives For more information, please contact: [phone] * Full Code (Latest Code Status on File) Date Activated Date Inactivated Comments 07/29/2021 2:27 PM 07/31/2021 6:25 PM Question Answer Comments Full Code: Discussed Care Teams Associate Drafter Relationship Specialty Start Date End Date No Contact, Pcp PCP - General Family Medicine 03/25/21
--- OUTSIDE RECORDS SUMMARY | 2024-04-01 18:35 | XMS_ITS | Clinical Summary ---
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 90 Tablet 3 4 Active clopidogreL (PLAVIX) 75 mg tabletIndications :Coronary artery disease involving lower [place] coronary artery of [place] heart, unspecified whether angina present Take 1 [...] cancer 06/22/2022 Overview (03/25/2024): Per radiation oncologist [facility] 01/2024: Standard of care in this case [...] 05. Received tissue plasminogen activator. Treated [place]. Symptoms resolved. Aortic valve replaced 08/11/2021 Hypertensive [...] Date Type Department Care Team Description 03/29/2024 Orders Only [facility] Scanner 1 scan: (1-Ord) [facility], XR CHEST, 1V, 03/29/2024 03/29/2024 Nurse Triage [facility] [address] [place] [address] Basilio Conway MD Dizziness 03/26/2024 Nurse Triage [facility] [address] [place] [address] VotelBasilio MD Concerns; Medication Management 03/08/2024 Refill [facility] [address] [place] [address] Steve Adams MD Refill Request (Clopidogrel) 02/29/2024 1:40 PM CDT Office Visit [facility] [address] [facility] [place] [address] Basilio Conway MD Blood Pressure (Follow up); Depression 02/28/2024 2:00 PM CDT Pharmacist Medication Management [facility] [address] [facility] [place] [address] Annette Montaño, MartiD Pharmacist Medication Management (CMR follow-up - in-clinic - medication questions) 02/28/2024 Travel 01/15/2024 1:30 PM CDT - 01/15/2024 11:59 PM CDT Hospital Encounter [facility] [address] [place] [address] Sarath Hodges MD 01/15/2024 1:15 PM CDT - 01/15/2024 1:29 PM CDT Hospital Encounter [facility] [address] [facility] [place] [address] Sarath Hodges MD 01/15/2024 Travel 01/03/2024 3:00 PM CDT Office Visit [facility] [address] [facility] [address] [facility] [address] [place] [address] ShonnaEla mcnally PA Follow Up 01/03/2024 Travel from Last 3 Months Immunizations Name Administration Dates Next Due AMB Influenza, IIV3 (Age >=3 years)(Flu Clinic Only) 04/05/2012 Amb Influenza, Inact (High-d ose) (Flu Clinic Only) 02/22/2017 COVID-19 VACCINE SPIKEVAX (M ODERNA 50MCG/0.5ML) 12YO+ PFS 04/25/2023 COVID-19 vaccine (Moderna 100mcg/0.5mL) PF, MDV 01/10/2022 COVID-19 vaccine (Pfizer-Bio NTech 30mcg/0.3mL) 12YO+ BIVALENT PF, MDV 05/18/2022 COVID-19 vaccine (Pfizer-Bio NTech 30mcg/0.3mL) PF, MDV 08/25/2020,08/04/2020 Covid-19 Vaccine [...] file 04/07/2023 Food Insecurity Answer Date Recorded Do you worry your food will run out before you are able to buy more? 1 04/07/2023 Transportation Needs Answer Date Record ed Lack of Transportation (Medical) 1 04/07/2023 Housing Stability Answer Date Recorded What is your housing situation today? 1 04/07/2023 Sex and Gender Information Value [...] 04/09/2024 1:00 PM CDT Orders Only [facility] [address] [place] [address] [place], [place] 04/09/2024 1:15 PM CDT Office Visit [facility] [address] [place] [address] VotelBasilio MD [address] [place] [address] 04/29/2024 1:20 PM RN UROLOGY Appointment [facility] [address] [place] [address] 05/06/2024 Procedure Only [facility] [address] [place] [phone] 05/13/2024 1:45 PM RN UROLOGY Office Visit [facility] [address] [place] [address] Caterina Dao, DO [address] [place] [address] 10/30/2024 11:00 AM CDT Pharmacist Medication Management [facility] [address] [place] [address] Annette Montaño, PharmD [address] [place] [address] Health Maintenance Due Date Last Done Comments RSV vaccine for adults or (1 - 1-dose 75+ series) 2014 COVID-19 vaccine series (2023- season) 2024 04/25/2023, 05/18/2022, 01/10/2022, Additional history [...] history exists Medical Devices Implanted Type Area Wind Operations Supervisor Device Identifier Shelf Expiration Date Model / Serial / Lot Receiving Clerk-P-10/14/2016 Implanted:10/14 (Quantity not on file) FLY FINISHER-P [employer] VALIT UDE/ U 128 / / Procedures Procedure Name Priority Date/Time Associated Diagnosis Comments SCAN-RADIOLOGY REPORT 03/29/2024 12:00 AM CDT HEMOGLOBIN A1C MONITORING (POCT) Routine 02/29/2024 2:46 PM CDT DIABETES PSA (TOTAL) (QUEST) Routine 02/29/2024 2 :43 PM CDT from Last 3 Months Results * SCAN-RADIOLOGY REPORT (03/29/2024 12:00 AM CDT) Anatomical Region Laterality Modality Other Scanner OTHER * (ABNORMAL) HEMOGLOBIN A1C MONITORING (POCT) (02/29/2024 2:46 PM CDT) POC HEMOGLOBIN A1C 6.2(H) <6.0 % OF TOTAL HGB [facility] Comment: Any point of care results exhibiting inconsistency with the patient's clinical status should be repeated using a different testing method. Blood BLOOD SPECIMEN / Unknown 02/29/2024 2:46 PM CDT 02/29/2024 2:46 PM CDT Basilio Conway MD CHEMISTRY [facility] [address] [place] [address], [facility] [address] [place] [address] * PSA (TOTAL) (QUEST) (02/29/2024 2:43 PM CDT) PSA, TOTAL 0.24 < OR = 4.00 ng/mL [facility] Comment: The total PSA value from this assay system is standardized against the WHO standard. The test result will be approximately 20% lower when compared to the equimolar-standardized total PSA (Codie Attica). Comparison of serial PSA results should be [...] PM CDT Basilio Conway MD SEND OUTS [facility] [address] [place] [address], [facility] [address] [place] [address] from Last 3 Months Advance Directives Documents on File Type Date Recorded Patient Floral Specialist Expl anation Healthcare Directive 07/14/2020 021 * [...] 7:06 AM 09/14/2016 5:25 PM Care Teams Electrical And Radio Mock Up Mechanic Relationship Specialty Start Date End Date Votel, Basilio Roque MD [address] [place] [address] PCP - General Family Practice 09/30/10 Steve Adams MD [address] [place] [address] Consulting Physician Cardiovascular Disease 04/22/15 Derrick Esqueda MD [address] [facility] [address] [place] [address] Consulting Physician Cardiovascular Disease 06/23/20 Annette Montaño, PharmD [address] [place] [address] Pharmacist Medication Management Pharmacology 08/23/23 08/22/26 Sarath Hodges MD [address] [place] [address] Radiation Oncologist Radiation Oncology 01/15/24
--- OUTSIDE RECORDS SUMMARY | 2024-04-01 18:35 | XMS_ITS | Clinical Summary ---
Author Organization [facility] Address [address] [place] [address] Care Team Providers Care Information Writer Name Role Phone No Contact, Pcp Primary Care Provider Unavailabl e Source Comments Patient records contain information from all sites at [facility]. For routine questions regarding patient records, call [phone] during business hours, M-F 8:00 AM - 5:00 PM Central Time. Record requests for emergency care only can be directed to [phone] at any time.[facility] Allergies Active Allergy Reactions Criticality Noted Date [...] as needed for chest pain. 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 Not on file Not on file Not on file Last Filed Vital Signs Vital Sign Reading Time Taken Comments Blood Pressure 110/57 07/31/2021 3:45 PM SILVER WRAPPER Pulse 67 07/31/2021 3:45 PM SILVER WRAPPER Temperature 36.3 ??C (97.3 ??F) 07/31/2021 3:45 PM CS T Respiratory Rate 16 07/31/2021 10:30 AM SILVER WRAPPER Oxygen Saturation 98% 07/31/2021 3:45 PM SILVER WRAPPER Inhaled Oxygen Concentration - - Weight 80 kg (176 lb 5.9 oz) 07/30/2021 1:00 AM SILVER WRAPPER Height 172.5 cm (5' 7.91) 07/31/2021 11:[address] Body Mass Index 26.89 07/30/2021 1:00 AM SILVER WRAPPER Plan of Treatment Health Maintenance Due Date [...] history exists Medical Devices Implanted Type Area Tool Checker Device Identifier Shelf Expiration Date Model / Serial / Lot Bsc [id number] Acuity X4 Spiral Short [id number] Implanted:09/2016 (Quantity not on file) Cardiac Lead [employer] 4674 ACUITY X4 SPIRAL SHORT / [id number] / Bs [id number] [facility] [id number] Implanted:09/2016 (Quantity not on file) Cardiac Lead [employer] 7741 INGEVITY MRI / [id number] / Bsc 7742 Ingevity Mri [id number] Implanted:09/2016 (Quantity not on file) Cardiac Lead [employer] 7742 INGEVITY MRI / [id number] / Cardiac Lead-10/14/2016 Implanted:10/2016 (Quantity not on file) Cardiac Lead Heart [employer] 7742 [id number] / / Cardiac Lead-10/14/2016 Implanted:10/2016 (Quantity not on file) Cardiac Lead Heart [employer] 7741 [id number] / / Cardiac Lead-10/14/2016 Implanted:10/2016 (Quantity not on file) Cardiac Lead Heart [employer] [id number] / / [facility] U128 Valitude [id number] Implanted:09/2016 (Quantity not on file) Pacemaker [employer] U128 VALITUDE / [id number] / Pacemaker-10/14 Implanted:10/2016 (Quantity not on file) Pacemaker Chest [employer] U128 VALITUDE PLANT PATHOLOGY TEACHER-P [id number] / / Procedures Procedure Name Priority Date/Time Associated Diagnosis Comments BASIC METABOLIC PANEL, S/P Routine 07/31/2021 9:05 AM SILVER WRAPPER HEMOGLOBIN A1C, B STAT 07/29/2021 2:5 4 PM SILVER WRAPPER from Last 3 Months or Most Recently Relevant to Health Maintenance Results * (ABNORMAL) Basic Metabolic Panel (07/31/2021 9:05 AM SILVER WRAPPER) Pathologist [facility] Potassium, S 4.8 3.6 - 5.2 mmol/L 07/31/2021 11:24 AM SILVER WRAPPER DTL Sodium, S 135 135 - 145 mmol/L 07/31/2021 11:24 AM SILVER WRAPPER DTL Chloride, S 101 98 - 107 mmol/L 07/31/2021 11:24 AM SILVER WRAPPER DTL Bicarbonate, S 23 22 - 29 mmol/L 07/31/2021 11:24 AM SILVER WRAPPER DTL Anion Gap 11 7 - 15 07/31/2021 11:24 AM SILVER WRAPPER DTL BUN (Blood Urea Nitrogen), S 36(H) 8 - 24 mg/dL 07/31/2021 11:24 AM SILVER WRAPPER DTL Creatinine 1.27 0.74 - 1.35 mg/dL 07/31/2021 11:24 AM SILVER WRAPPER DTL eGFR-Non Black/ 52(L) >=60 mL/min/BSA 07/31/2021 11:24 AM SILVER WRAPPER DTL Comment: ----ADDITIONAL INFORMATION---- Estimated GFR calculated using the 2009 CKD_EPI creatinine equation. eGFR-Black/Afri can Brazilian 60 >=60 mL/min/BSA 07/31/2021 11:24 AM SILVER WRAPPER DTL Comment: ----ADDITIONAL INFORMATION---- Estimated GFR calculated using the 2009 CKD_EPI creatinine equation. Calcium, Total, S 9.6 8.8 - 10.2 mg/dL 07/31/2021 11:24 AM SILVER WRAPPER DTL Glucose, S 170(H) 70 - 140 mg/dL 07/31/2021 11:24 AM SILVER WRAPPER DTL Blood (Blood, Venous) 07/31/2021 9:05 AM SILVER WRAPPER 07/31/2021 9:21 AM SILVER WRAPPER Amrik Shankar M.D. LAB BLOOD ADD-ON Final Result Performing Organization Address City/[facility]/ZIP Co de Phone Number [facility] [address] [place] [address], [facility] [address] [place] [address] * (ABNORMAL) Hemoglobin A1c (07/29/2021 2:54 PM SILVER WRAPPER) Hemoglobin A1c, B 6.4(H) 4.0 - 5.6 % 07/29/2021 3:41 PM SILVER WRAPPER DTL Comment: Hemoglobin A1c values of 5.7-6.4 percent indicate an increased risk for developing diabetes mellitus. In diabetic patients, HbA1c goals should be discussed with healthcare provider. Blood (Blood, Venous) 07/29/2021 2:54 PM SILVER WRAPPER 07/29/2021 3:10 PM SILVER WRAPPER Iliana Montesinos M.D. LAB BLOOD ADD-ON Final Resu lt Performing Organization Address City/[facility]/ZIP Co de Phone Number [facility] [address] [place] [address], [place] [facility] [address] [place] [address] from Last 3 Months or Most Recently Relevant to Health Maintenance Insurance [facility] Advance Directives For more information, please contact: [phone] * Full Code (Latest Code Status on File) Date Activated Date Inactivated Comments 07/29/2021 2:27 PM 07/31/2021 6:25 PM Question Answer Comments Full Code: Discussed Care Teams Information Writer Relationship Specialty Start Date End Date No Contact, Pcp PCP - General Family Medicine 03/25/21
--- OUTSIDE RECORDS SUMMARY | 2024-04-01 18:35 | XMS_ITS | Data Portability ---
Author Organization [place] [facility], [facility] Address [address] [place] [address] Care Team Providers Care Oil Well Driller Name Role Phone VOTELGATITO Primary Care Provider [phone] Assessment No assessment recorded. Plan of Treatment Reminders Order Date Submit Date Provider Last Modified By Organization Details Last Modified Time Details Appointments None recorded. Lab None recorded. Referral pelvic floor therapy referral - Please call patient to schedule Pelvic Floor Physical Therapy. Thank you 2022 023 [email or web address] [facility], [address] [facility], [place], [address], 3 16:13:23 Procedures None recorded. Surgeries None recorded. Imaging PET-CT, skull base to mid-thigh scan - PLEASE CONTACT PATIENT TO SCHEUDLE PSMA scan; Eyes to thighs; 2023 024 [email or web address] [facility], [address] , [place], [address], 4 08:09:42 Medication Orders None recorded. Patient TargetsNo targets recorded. Patient Instructions Encounter Date Encounter Id Patient Instructions Last Modified By Organization Details Last Modified Time 12/08/2023 [id number] History of prostate cancer and rising PSA [...] will likely improve his urination at night. [email or web address] Not available 12/08/2023 18:11:33 Reason for Referral [...] PSA surveillance).PLEASE CONTACT Natalya León (Daughter) for [phone] Referring Physician: Graham Jones, Urology, Encounter Date: [...] t Radiol ogy Outpat ient Imagin g [facility] DATE: 024 INDICA TION: Subseq uent treatm [...] ly interp reted by: DR. FLACO BLANDON [email or web address] [facility] [place] [address] [place], [address], 01/04/2024 16:50:31 01/11/20 24 12/22/2023 PET-C T, skull base to mid-t high scan No observ ation record ed. [facility] [address] [place], [address], 01/11/2024 17:58:31 Result Notes Documentation Provider Name and Address Organization Details Recorded Time Pet-ct, Skull Base To Mid-thigh Scan : EXAM: PET CT PROSTATE PSMA SUBSEQUENT LOCATION: [facility] DATE: 12/22/2023 INDICATION: Subsequent treatment planning and [...] electronically interpreted by: DR. LEONIDAS JONES MD [address] [place] [address],[address], [address], [facility] 01/04/2024 16:50:31 Problems Name Problem SNOMED Code Status Onset Date Resolution Date Notes Provider Name and Address Organization Details Recorded Time Recurrent inguinal hernia 53352479264 08 Active 2014 K40.91 : Recurrent inguinal hernia Not Available [facility] 0 00:15:59 Pain Active 2016 R10.30 : On examinati on - abdominal pain - hypogastr ium Not Available [facility] 0 00:15:59 Genuine stress incontine nce 66352812 Active 2016 N39.3 : Genuine stress incontine nce Not Available [facility] 0 00:15:59 History of malignant neoplasm of prostate 256196394 Active 2015 Z85.46 : History of malignant neoplasm of prostate Not Available [facility] 0 00:15:59 Prostate specific antigen above reference range 115436239 Active 2023 GRAHAM JONES MD [address] [place] [address], [address] [place] [address] , [facility] 4 14:40:05 Stress incontine nce after prostatec edi 236131255 Active 2023 GRAHAM JONES MD [address] [place] [address], [address] [place] [address] , [facility] 4 14:40:05 Malignant tumor of prostate 474560546 Active 2023 GRAHAM JONES MD [address] [place] [address], [address] [place] [address] , [facility] 4 17:27:21 Nocturia 016224183 Active 2023 GRAHAM JONES MD [address] [place] [address], [address] [place] [address] , [facility] 4 17:29:24 Problem Notes None recorded. Procedures Surgical History Date Name Laterality Status Provider Name and Address Organization Details Recorded Time 12/08/19 24 COMPLEX VISIT completed GRAHAM JONES MD [address] [place] [address], [address] [place] [address], [facility] 12/08/2023 14:41:51 12/08/19 24 Past Data Reviewed completed GRAHAM JONES MD [address] [place] [address], [facility] 12/08/2023 14:48:09 06/12/[address] colonography [...] Note 08/23/2021 13:28:44 03/29/20 06 Laps surg [email or web address] rpbic rad completed Not Available Health Note [...] PET-CT, skull base to mid-thigh scan completed [address], [address], 01/04/2024 16:50:31 12/22/2023 PET-CT, skull base to mid-thigh scan completed [address], [address], 01/11/2024 17:58:31 Procedure Notes None recorded. Medical Equipment None Reported. Allergies Allergen ID Allergen Name Allergen Category Reaction Reaction Severity Criticality Documentation Date Start Date Code Code System Note Provider Name and Address Organization Details Recorded Time 546652 latex environme nt,medica tion Not available Not available Not available 08/23/2021 59183 91 RxNorm Stella Butcher [facility] 13:48:38 Medications Name Sig Start [...] Updated DateTime 10/26/2022 170.18 cm 26.6 kg/m2 23427.7 g Monicabriseyda Ruiz [facility] 10/26/2022 15:03:51 Date Recorded Body height Body mass index (BMI) Body weight Provider Name and Address Organization Details Last Updated DateTime 12/08/2023 170.18 cm 26.6 kg/m2 96601.7 g Sudha Sutton [facility] 12/08/2023 14:37:15 Date Recorded Body height Body mass index (BMI) Body weight Provider Name and Address Organization Details Last Updated DateTime 08/06/2020 175.26 cm 28.8 kg/m2 80158.51 g Stella Butcher [facility] 08/06/2020 12:08:30 Date Recorded Body mass index (BMI) Body height Body weight Provider Name and Address Organization Details Last Updated DateTime 08/23/2021 27.1 kg/m2 170.18 cm 51142.5733 951088 g Not Available Health Note 08/23/2021 13:33:08 [...] available 10/22/2022 Are You Currently Employed? No [email or web address] Information not available 10/26/2022 Do You Or Have You Ever Used E-cigarettes Or Vape? Never Used Electronic Cigarettes [email or web address] Information not available 10/22/2022 When Did You Quit Smoking? 16+yearssincel astcigarette Information not available 12/08/2023 Race White Information n ot available 11/21/2019 Ethnicity Not /Latin o Information not available 08/06/2020 Preferred Language Swedish Information not available 08/06/2020 Recreational Drug Use No [email or web address] Information not available 10/26/2022 Marital Status Informati [...] Has Tobacco Cessation Counseling Been Provided? No [email or web address] Information not available 10/26/2022 How Many Years Have You Smoked Tobacco? 25 [email or web address] Information not available 10/22/2022 Do You Or Have You Ever Used Any Other Forms Of Tobacco Or Nicotine? No [email or web address] Information not available 10/26/2022 Sex: Male Functional [...] lung:Runs in Family Medical History Condition Response High Blood Pressure N Kidney Stones N Lung Disease N Depression N GERD/Acid Reflux N Sexually Transmitted Infection N Diabetes Y Bleeding Disorder Y Cancer Y High Cholesterol Y Heart Disease Y Immunizations Vaccine Type Date Status Provider Name and Address Organization Details Recorded Time SARS-COV-2 (COVID-19) vaccine, UNSPECIFIED 07/12/2021 completed Magdalena Plank null, [facility] 12/08/2023 14:30:21 influenza, unspecified formulation 06/13/2021 completed Magdalena Plank null, [facility] 12/08/2023 14:30:22 pneumococcal, unspecified formulation 06/12/2021 completed Monica Ruiz null, [facility] 10/26/2022 15:03:54 zoster recombinant 04/02/2018 completed Stella Daviesbetsymarquita null, [facility] 08/23/2021 13:48:19 Influenza, high-dose, trivalent, PF 02/22/2017 completed Stella Daviseanick null, [facility] 08/23/2021 13:48:20 COVID-19, mRNA, LNP-S, PF, 30 mcg/0.3 mL dose 03/25/2021 completed Stella Walterk null, [facility] 08/23/2021 13:48:20 Influenza, split virus, trivalent, preservative 04/07/2005 completed Stella Daviesanick null, [facility] 08/23/2021 13:48:20 Influenza, split virus, trivalent, preservative 03/22/2004 completed Stella Daviesanick null, [facility] 08/23/2021 13:48:20 Influenza, split virus, trivalent, preservative 05/17/2002 completed Stella Daviesanick null, [facility] 08/23/2021 13:48:20 Influenza, split virus, trivalent, preservative 04/05/2012 completed Stella Daviesanick null, [facility] 08/23/2021 13:48:20 Influenza, split virus, trivalent, preservative 05/21/2008 completed Stella Samsonanick null, [facility] 08/23/2021 13:48:20 Influenza, high-dose, trivalent, PF 03/06/2014 completed Stella Samsonanick null, [facility] 08/23/2021 13:48:20 Influenza, split virus, trivalent, PF 03/23/2010 completed Stella Daviesanick null, [facility] 08/23/2021 13:48:20 Influenza, adjuvanted, trivalent, PF 03/23/2017 completed Stella Baranick null, [facility] 08/23/2021 13:48:20 Influenza, high-dose, trivalent, PF 04/02/2018 completed Stella Baranick null, [facility] 08/23/2021 13:48:20 zoster live 12/08/2010 completed Stella Baranick null, [facility] 08/23/2021 13:48:20 COVID-19, mRNA, LNP-S, PF, 30 mcg/0.3 mL dose 08/25/2020 completed Stella Baranick null, [facility] 08/23/2021 13:48:20 Td (adult), 5 Lf tetanus toxoid, preservative free, adsorbed 01/15/2015 completed Stella Baranick null, [facility] 08/23/2021 13:48:20 Td (adult), 2 Lf tetanus toxoid, preservative free, adsorbed 07/22/2003 completed Stella Baranick null, [facility] 08/23/2021 13:48:20 influenza, unspecified formulation 04/12/2007 completed Stella Baranick null, [facility] 08/23/2021 13:48:20 COVID-19, mRNA, LNP-S, PF, 30 mcg/0.3 mL dose 08/04/2020 completed Stella Baranick null, [facility] 08/23/2021 13:48:20 Influenza, split virus, trivalent, preservative 03/27/2006 completed Stella Baranick null, [facility] 08/23/2021 13:48:20 Influenza, split virus, trivalent, PF 03/10/2011 completed Stella Baranick null, [facility] 08/23/2021 13:48:20 Influenza, split virus, trivalent, preservative 05/06/2003 completed Stella Baranick null, [facility] 08/23/2021 13:48:20 Influenza, split virus, trivalent, PF 04/22/2009 completed Stella Baranick null, [facility] 08/23/2021 13:48:20 Influenza, adjuvanted, trivalent, PF 05/06/2020 completed Stella Butcher null, [facility] 08/23/2021 13:48:20 Influenza, split virus, trivalent, PF 06/06/2013 completed Stella Butcher null, [facility] 08/23/2021 13:48:20 Influenza, high-dose, trivalent, PF 02/14/2019 completed Stellara Butcher null, [facility] 08/23/2021 13:48:20 Novel [id number] 04/22/2009 completed Stella Samsonbetsyk null, [facility] 08/23/2021 13:48:20 Influenza, adjuvanted, quadrivalent, PF 02/18/2021 completed Stella Butcher null, [facility] 08/23/2021 13:48:20 zoster recombinant 08/13/2018 completed Stellara Butcher null, [facility] 08/23/2021 13:48:20 influenza, unspecified formulation 01/10/2022 completed Magdalena Bullock null, [facility] 12/08/2023 14:30:22 pneumococcal, unspecified formulation 01/10/2022 completed Monica Ruiz null, [facility] 10/26/2022 15:03:54 SARS-COV-2 (COVID-19) vaccine, UNSPECIFIED 01/10/2022 completed Magdalena Bullock null, [facility] 12/08/2023 14:30:21 Pneumococcal conjugate PCV 13 01/15/2015 completed Stella Butcher null, [facility] 08/23/2021 13:48:20 pneumococcal polysaccharide PPV23 07/22/2003 completed Chelsea Dunn null, [facility] 01/28/2021 11:35:40 pneumococcal polysaccharide PPV23 12/08/2010 completed Stella Butcher null, [facility] 08/23/2021 13:48:20 Past Encounters Encounter ID Performer Location Encounter Start Date Encounter Closed Date Diagnosis/Indication Diagnosis SNOMED-CT Code Diagnosis ICD10 Code [id number] Jude Lizarraga MD [facility] [address] [facility] [address] [place] [address] 08/06/2020 11:54:54 08/06/2020 12:50:10 History of malignant neoplasm of prostate 269694934 Z85.46 Male urina ry stress incontinence 008437165 N39.3 Primary er ectile dysfunction 156798620 N52.9 [id number] Jude Lizarraga MD [address] [address] 08/23/2021 13:33:04 08/23/2021 14:16:26 Prostate specific antigen above reference range 692049065 R97.20 History of malignant neoplasm of prostate 932206053 Z85.46 Stress inc ontinence after prostatectomy 420992213 N39.3 [id number] Jude Lizarraga MD [address] [address] 10/26/2022 14:56:19 10/26/2022 15:43:29 Prostate specific antigen above reference range 199960339 R97.20 History of malignant neoplasm of prostate 849195349 Z85.46 Stress inc ontinence after prostatectomy 409064769 N39.3 [id number] GRAHAM JONES MD [address] [address] 12/08/2023 14:12:57 12/11/2023 09:08:50 History of malignant neoplasm of prostate 131841590 Z85.46 Prostate s pecific antigen above reference range 671488709 R97.20 Stress inc ontinence after prostatectomy 261056683 N39.3 Malignant tumor of prostate 670938359 C61 Nocturia 241841093 R35.1 Health Concerns Section Related Observation LastModified by Organization Detai ls LastModified Time None Recorded Concern Status LastModified by Organization Details LastModified Time None Recorded Advance Directives Directive None Recorded Payers Encounter Date Sequence Insurance Name Policy Number Policy Benitez Covered Member ID Benitez Member ID Guarantor Name 08/06/2020 1 [employer] [id number] Sumit León [id number] Sumit León 08/23/2021 1 [employer] [id number] Sumit León [id number] Sumit León 10/26/2022 1 [facility] ([place] [id number] Sumit León [id number] Sumit Patel Janjaison 12/08/2023 1 [facility]: (MEDICARE REPLACEMENT PPO) [id number] Sumit León [id number] Sumit León Notes Date Note Type Note Provider Name and Address Organization Details Recorded Time 08/06/2020 text/html HPI Notes: Albert kelley is 13 year(s) status post a robotic radical prostatectomy. PSA: 0.09 Warren Score: 5+3 Stage: T3b Margin status: negative [...] to urinary symptoms: Pleased Jude Lizarraga MD [address] [place] [address],[address], [address], [facility] 08/06/2020 12:29:44 08/23/2021 text/html HPI Notes: [...] to urinary symptoms: Pleased Jude Lizarraga MD [address] [place] [address],[address], [address], [facility] 08/23/2021 14:00:05 10/26/2022 text/html HPI Notes: Albert [...] to urinary symptoms: Pleased Jude Lizarraga MD [address] [place] [address],[address], [address], [facility] 10/26/2022 15:12:31 12/08/2023 text/html HPI Notes: [...] 10 (QoL: pleased) GRAHAM JONES MD [address] [facility],[address], [place], [address], [place] [facility] 12/29/2023 10:28:11
--- OUTSIDE RECORDS SUMMARY | 2024-04-01 18:35 | XMS_ITS ---
Author Organization [facility] Address [address] [place] [address] Care Team Providers Care Shipping Receiving Manager Name Role Phone Unavailable Unavailable Unavailable Surgery Details Not on file Complications Check Surgery Details section. Procedure Estimated Blood Loss Check Surgery Details section. Procedure Findings Check Surgery Details section. Procedure Specimens Taken Check Surgery Details section.
== END 2024-03-29 13:49 | disposition home or self-care (01) ==
LOC: AMB 04-01 18:33
PROVIDERS: PCP Family Medicine; Visit Provider Family Medicine
DX: R42 Dizziness and giddiness (principal); R53.83 Other fatigue; R53.1 Weakness
CPT/HCPCS: A0425; A0427

== ENCOUNTER 2024-03-29 14:34 | Emergency (ER) | payer MEDICARE, SELFPAY ==
[2024-03-29] VITALS (24 sets, daily range): BP systolic 144–178; BP diastolic 71–121; PULSE 62–79; RESP 16–18; TEMP 37.2; O2SAT 92–99; BMI 27.3
--- NOTE | 2024-03-29 14:54 | ED.GENADULT ---
HPI - General Adult General Time Seen by Provider: 14:54 Date Seen: 03/29/24 Chief complaint: Unspecified Complaint, Adult Stated complaint: Weakness, nausea Time Seen by Provider: 03/29/24 14:54 Source: patient and RN notes reviewed Mode of arrival: ambulatory Limitations: no limitations History of Present Illness HPI narrative: Lan is a very pleasant 83-year-old gentleman with a history of pacemaker, stent placement, type 2 diabetes, past history of melena who comes to the emergency room with cardiac concerns.. Patient notes that he was just getting up this morning and standing at the kitchen sink when he had the onset of some weakness jaw pain and nausea. This lasted for considerable length of time and then went away. It has not come back. Patient feels that he is overall weaker than normal as well. He denies any chest pain with this event. He denies lightheadedness or syncope. He did call the clinic and was directed to come to the ER. Here in the emergency room he has no symptoms at this time. Feels like he is back to normal. When talking about the past week he has not had any cough cold fever dysuria or any other symptoms. His heaviest activity is walking around at home. He does not do yd work or go for walks every day. He denies lower extremity edema or calf pain. Related Data Home Medications ?Medication ?Instructions ?Recorded ?Confirmed atorvastatin 40 mg tablet 40 mg PO QPM 12/22/21 09/19/23 cholecalciferol (vitamin D3) 125 5,000 unit PO DAILY 12/22/21 09/19/23 mcg (5,000 unit) capsule clopidogrel 75 mg tablet 75 mg PO DAILY 12/22/21 09/19/23 empagliflozin 10 mg tablet 10 mg PO DAILY 12/22/21 09/19/23 furosemide 40 mg tablet 40 mg PO .COMPLEX PRN 12/22/21 09/19/23 metformin 1,000 mg tablet 1,000 mg PO BID 12/22/21 09/19/23 semaglutide 0.25 mg or 0.5 mg (2 1 mg subcut .weekly 12/22/21 09/19/23 mg/1.5 mL) subcutaneous pen injector (Ozempic) vitamin E (dl, acetate) 180 mg 400 unit PO DAILY 12/22/21 09/19/23 (400 unit) capsule gabapentin 300 mg capsule 300 mg PO 3XD 04/10/23 09/19/23 Allergies Allergy/AdvReac Type Severity Reaction Status Date / Time adhesive tape Allergy Unknown Verified 09/19/23 13:27 latex Allergy Verified 09/19/23 13:27 Review of Systems Status of ROS: Reports: 10 or more systems reviewed and unremarkable except as noted in History and below Const: Denies: fever, chills or malaise Eyes: Denies: change in vision ENMT: Denies: throat pain, neck pain, nasal discharge or nasal congestion Cardio: Denies: chest pain, palpitations, edema, swelling of feet/ankles, lightheadedness or shortness of breath with exertion Resp: Denies: shortness of breath or cough GI: Denies: abdominal pain, nausea, vomiting or diarrhea : Denies: painful urination Musculo: Denies: neck pain Integ/Breast: Denies: rash Neuro: Denies: headache Endo: Denies: excessive urination PFSH PFS Medical History Hearing loss ?H91.90 - Unspecified hearing loss, unspecified ear (ICD-10) Heart failure ?I50.9 - Heart failure, unspecified (ICD-10) 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 - Cerebral infarction due to unspecified occlusion or stenosis of left middle cerebral artery (ICD-10) Cardiac pacemaker ?Z95.0 - Presence of cardiac pacemaker (ICD-10) Obstructive sleep apnea ?G47.33 - Obstructive sleep apnea (adult) (pediatric) (ICD-10) Ischemic cardiomyopathy ?I25.5 - Ischemic cardiomyopathy (ICD-10) Left bundle branch block ?I44.7 - Left bundle-branch block, unspecified (ICD-10) Sensorineural hearing loss ?H90.5 - Unspecified sensorineural hearing loss (ICD-10) Adenomatous colon polyp ?D12.6 - Benign neoplasm of colon, unspecified (ICD-10) Neuropathy ?G62.9 - Polyneuropathy, unspecified (ICD-10) Prostate cancer ?C61 - Malignant neoplasm of prostate (ICD-10) Hyperlipidemia ?E78.5 - Hyperlipidemia, unspecified (ICD-10) Hypertension ?I10 - Essential (primary) hypertension (ICD-10) Coronary artery disease ?I25.10 - Atherosclerotic heart disease of [place] coronary artery without angina pectoris (ICD-10) Diabetes mellitus ?E11.9 - Type 2 diabetes mellitus without complications (ICD-10) Surgical History Status post transcatheter aortic valve replacement (TAVR) using bioprosthesis ?Z95.3 - Presence of xenogenic heart valve (ICD-10) S/P hernia repair ?Z98.890 - Other specified postprocedural states (ICD-10) ?Z87.19 - Personal history of other diseases of the digestive system (ICD-10) S/P TAVR (transcatheter aortic valve replacement) ?Z95.2 - Presence of prosthetic heart valve (ICD-10) Social History Smoking Status: Never smoker Do you use any of these nicotine containing products: None Second hand tobacco smoke exposure: No How often do you have a drink containing alcohol: never How often do you have six or more drinks on one occasion: Never AUDIT-C Alcohol total score: 0 Non-prescribed substance use: denies use Caffeine: Yes service: No Exam Narrative: Exam Narrative: Lan is alert and oriented. Very pleasant gentleman in no acute distress. External ears eyes nose clear. Heart with a regular rate and rhythm. Lungs are clear bilaterally. Abdomen is soft nontender. No evidence of right upper quadrant tenderness. Lower extremities with no evidence of edema. No calf tenderness. He he can move all of his extremities without difficulty. No unusual rashes. Patient is warm to the touch. Const: Vital Signs, click to edit/add: Vital Signs - 24 hr 03/29/24 14:45 03/29/24 14:53 03/29/24 15:00 Temperature 99 F Pulse Rate 69 66 Pulse Rate [Right Pulse Oximeter] 67 Respiratory Rate 18 Blood Pressure Blood Pressure [Ri ght Upper Arm] 149/71 H Pulse Oximetry 92 95 97 Oxygen Delivery Me thod Room Air 03/29/24 15:09 03/29/24 15:15 03/29/24 15:54 Temperature Pulse Rate 67 65 64 Pulse Rate [Right Pulse Oximeter] Respiratory Rate 16 Blood Pressure 153/78 H Blood Pressure [Ri ght Upper Arm] Pulse Oximetry 97 96 Oxygen Delivery Me thod Room Air 03/29/24 16:00 03/29/24 16:02 03/29/24 16:15 Temperature Pulse Rate 73 79 64 Pulse Rate [Right Pulse Oximeter] Respiratory Rate 16 Blood Pressure 153/89 H Blood Pressure [Ri ght Upper Arm] Pulse Oximetry 99 99 Oxygen Delivery Me thod 03/29/24 16:18 03/29/24 16:30 03/29/24 16:32 Temperature Pulse Rate 62 65 67 Pulse Rate [Right Pulse Oximeter] Respiratory Rate Blood Pressure 178/77 H 171/121 H Blood Pressure [Ri ght Upper Arm] Pulse Oximetry 99 93 94 Oxygen Delivery Me thod 03/29/24 16:45 03/29/24 16:47 03/29/24 17:00 Temperature Pulse Rate 68 70 73 Pulse Rate [Right Pulse Oximeter] Respiratory Rate 18 Blood Pressure 174/90 H Blood Pressure [Ri ght Upper Arm] Pulse Oximetry 99 Oxygen Delivery Me thod Room Air 03/29/24 17:02 03/29/24 17:15 03/29/24 17:17 Temperature Pulse Rate 69 68 66 Pulse Rate [Right Pulse Oximeter] Respiratory Rate 16 Blood Pressure 144/116 H 162/79 H Blood Pressure [Ri ght Upper Arm] Pulse Oximetry 99 95 95 Oxygen Delivery Me thod Room Air 03/29/24 17:30 03/29/24 17:32 03/29/24 17:45 Temperature Pulse Rate 67 67 67 Pulse Rate [Right Pulse Oximeter] Respiratory Rate Blood Pressure 147/96 H Blood Pressure [Ri ght Upper Arm] Pulse Oximetry 96 96 97 Oxygen Delivery Me thod 03/29/24 17:47 03/29/24 18:00 03/29/24 18:02 Temperature Pulse Rate 67 67 66 Pulse Rate [Right Pulse Oximeter] Respiratory Rate Blood Pressure 155/76 H 149/73 H Blood Pressure [Ri ght Upper Arm] Pulse Oximetry 97 98 98 Oxygen Delivery Me thod Documenting provider has reviewed patient's vital signs: yes Course Course ED Course: Differential diagnosis includes but is not limited to anginal equivalent, acute coronary event, orthostatic hypotension, urinary tract infection, COVID. Will place an IV and check labs to include CBC, comprehensive panel, troponin. Will also check urinalysis, chest x-ray and COVID. Patient is in agreement with this plan Reevaluation(s) Reevaluation #1: Patient continues to be stable. Laboratory values note a normal white count, hemoglobin of 11.3 which has dropped from a 12.81 year ago. Electrolyte panel reassuring. Creatinine normal 1.0. Alk-phos is L elevated at 246. ProBNP is 330. UA without evidence of UTI and COVID influenza RSV negative. Two troponins are negative. Vital Signs Vital signs: Initial Vital Signs Temperature 99 F 03/29/24 14:45 Temperature Source Temporal Artery Scan 03/29/24 14:45 Pulse Rate 67 03/29/24 14:45 Pulse Rhythm Regular 03/29/24 14:45 Pulse Strength 3+ Normal 03/29/24 14:45 Respiratory Rate 18 03/29/24 14:45 Blood Pressure 149/71 H 03/29/24 14:45 Blood Pressure Mean 97 03/29/24 14:45 Blood Pressure Position Semi-Fowlers 03/29/24 14:45 Pulse Oximetry 92 03/29/24 14:45 Oxygen Delivery Method Room Air 03/29/24 14:45 Vital Signs Temperature 99 F 03/29/24 14:45 Pulse Rate 67 03/29/24 14:45 Respiratory Rate 18 03/29/24 14:45 Blood Pressure 149/71 H 03/29/24 14:45 Pulse Oximetry 92 03/29/24 14:45 Oxygen Delivery Method Room Air 03/29/24 14:45 Temperature 99 F 03/29/24 14:45 Pulse Rate 66 03/29/24 18:02 Respiratory Rate 16 03/29/24 17:02 Blood Pressure 149/73 H 03/29/24 18:02 Pulse Oximetry 98 03/29/24 18:02 Oxygen Delivery Method Room Air 03/29/24 17:02 Medical Decision Making [facility] Narrative Medical decision making narrative: 1. Jaw pain questionable anginal equivalent-this occurred this morning was associated with nausea. No chest pain or shortness of breath. It was transient. Patient has a paced EKG and 2- troponins. No evidence of acute coronary event tonight. Would ask that he return to seek medical attention for any chest pain or worsening symptoms. No evidence of UTI. 2. Mild pulmonary congestion-patient noted to have a small pleural effusion and some increased lung markings. ProBNP was 330. Blood pressure was elevated from 150-178 systolic. I do believe with his history of congestive heart failure he likely has some fluid retention. At home he is supposed to take Lasix 40 mg he if he has a 3 lb weight gain. Will have him take 20 mg every other day until he is seen by his primary at the end of the month. They will need to do a potassium recheck at that time. 3. Elevation of alkaline phosphatase-isolated elevation of this LFT. Likely secondary to some fluid retention/congestive heart failure, however would ask that it be reached checked at his visit. 4. Drop in hemoglobin-hemoglobin 11.3 today but had been 12.81 year ago. Patient denies any history of blood in stool. 5. Disposition-home at this time. Patient's daughter and were here both very loving and supportive. Lan is ready to go home. Return for worsening symptoms and as needed. Medical Records Medical records reviewed: Yes I reviewed the patient's medical records Lab Data Lab results reviewed: Yes I reviewed the patient's lab results Labs: Lab Results 03/29/24 03/29/24 03/29/24 Range/Units 15:15 15:19 17:52 WBC 7.54 (4.50-11.00) K/uL RBC 4.66 (4.30-5.90) m/uL Hgb 11.3 L (13.5-17.5) gm/dL Hct 36.8 L (37.0-53.0) % MCV 79 L (80-100) fL MCH 24 L (26-34) pg MCHC 31 L (32-36) gm/dL RDW Coeff of Sabino 15.3 (11.5-15.5) % Plt Count 184 (140-440) K/uL Neut % (Auto) 73.4 H (42.0-72.0) % Lymph % (Auto) 16.4 L (20-44) % [place] % (Auto) 7.3 (0.0-11.0) % Eos % (Auto) 1.9 (0.0-7.0) % Baso % (Auto) 0.9 (0.0-3.0) % Neut # (Auto) 5.50 (1.7-7.0) K/uL Lymph # (Auto) 1.20 (0.90-2.90) K/uL [place] # (Auto) 0.60 (0.00-0.90) K/UL Eos # (Auto) 0.14 (0.00-0.50) K/uL Baso # (Auto) 0.07 (0.00-0.30) K/uL Abs Immat Gran (auto) 0.01 (0.00-0.30) K/uL Imm/Tot Granulo (auto) 0.1 % Sodium 133 L (135-149) mmol/L Potassium 4.6 (3.6-5.1) mmol/L Chloride 99 (96-114) mmol/L Carbon Dioxide 26 (20-32) mmol/L Anion Gap 8 (7-15) mEq/L BUN 26 (7-30) mg/dL Creatinine 1.0 (0.5-1.5) mg/dL Estimated Creat Clear 56.78 Estimated GFR 74 ml/min Glucose 104 (60-115) mg/dL Calcium 9.8 (8.4-10.6) mg/dL Total Bilirubin 0.7 (0.1-1.5) mg/dL AST 32 (12-35) U/L ALT 20 (4-50) U/L Alkaline Phosphatase 246 H (40-150) U/L NT-Pro-B Natriuret Pep 330 pg/mL Total Protein 8.8 H (6.0-8.3) g/dL Albumin 4.3 (3.3-5.0) g/dL Urine Color Yellow (Yellow) Urine Appearance Clear (Clear) Urine pH 7.5 (5.0-8.5) Ur Specific [place] 1.020 (1.000-1.030) Urine Protein Trace A (Negative) Urine Glucose (UA) Negative (Negative) Urine Ketones Negative (Negative) Urine Blood Negative (Negative) Urine Nitrite Negative (Negative) Urine Bilirubin Negative (Negative) Urine Urobilinogen 0.2 (0.2-1.0) Ur Leukocyte Esterase Negative (Negative) Urine RBC 0-2 (0-2) Urine WBC 0-2 (0-5) Ur Squamous Epith Cells None (None-Few) Urine Bacteria None (None) SARS-CoV-2 (PCR) Negative SARS-CoV-2 (Negative) Influenza Type A (PCR) Negative PCR FLU A (Negative) Influenza Type B (PCR) Negative PCR FLU B (Negative) RSV (PCR) Negative PCR RSV (Negative) POC Troponin I 0.01 0.02 (0.01-0.04) ng/ml Imaging Data Chest x-ray: Attestation: I have reviewed the pertinent imaging results. My impression: Mildly increased lung markings. Elevated hemidiaphragm noted when compared with previous. Radiologist's impression: There is hyperinflation and chronic interstitial change. There is an elevated left hemidiaphragm with likely left basilar pleural effusion. Mild pulmonary vascular congestion consistent with pulmonary edema. No pneumothorax. The cardiac silhouette is stable with a dual chamber pacer. The bony thorax is grossly intact. Impression: Elevated left hemidiaphragm with minimal left basilar pleural effusion. Mild pulmonary vascular congestion. ECG Data Attestation: I personally reviewed and interpreted this ECG as follows: Interpretation: Paced rhythm at a rate of 69. Discharge Plan Discharge Clinical Impression: Congestive heart failure, Alkaline phosphatase elevation Patient Disposition: Home, Self-Care Condition: Unchanged Additional Instructions: 1. There is evidence of fluid retention on chest x-ray. Would recommend Lasix 20 mg every other day until you are seen by your regular MD at the end of the month. If you become lightheaded , have a blood pressure below 120 top number or are dehydrated you may skip the dose. 2. There is no evidence of a heart attack today. 3. Talk to your physician about: Hemoglobin of 11.3 today which is decreased from 12.81 year ago. Alkaline phosphatase is elevated at 246. This may be elevated because of the fluid retention but you should have this rechecked. 4. Return to the emergency room as needed. Prescriptions: No Action atorvastatin 40 mg tablet 40 mg PO QPM cholecalciferol (vitamin D3) 125 mcg (5,000 unit) capsule 5,000 unit PO DAILY clopidogrel 75 mg tablet 75 mg PO DAILY empagliflozin 10 mg tablet 10 mg PO DAILY furosemide 40 mg tablet 40 mg PO .COMPLEX PRN Rx Instructions: 40 mg PO FOR WEIGHT GAIN OF 3 LBS OVERNIGHT OR 5 LBS IN ONE WEEK PRN; FOR WEIGHT GAIN OF 3 LBS OVERNIGHT OR 5 LBS IN ONE WEEK metformin 1,000 mg tablet 1,000 mg PO BID Patient Comments: TAKE 1 TABLET BY MOUTH TWICE DAILY WITH MEALS Ozempic 0.25 mg or 0.5 mg(2 mg/1.5 mL) pen injector 1 mg SUBCUT .weekly Patient Comments: INJECT 1 MG SUBCUTANEOUS ONCE WEEKLY. vitamin E (dl, acetate) 180 mg (400 unit) capsule 400 unit PO DAILY gabapentin 300 mg capsule 300 mg PO 3XD Follow Up/Referrals: Basilio Conway MD [Primary Care Provider] - Stand Alone Forms: [employer] Info Instructions
--- NOTE | 2024-03-29 15:03 | CRLHL7_ITS ---
For Patients: As a result of the Century Cures Act, medical imaging exams and procedure reports are released immediately into your electronic medical record. You may view this report before your referring provider. If you have questions, please contact your health care provider. Indication: Anginal equivalent jaw claudication Comparison: Two views chest and ribs February 15, 2021 Technique: Single AP view chest Findings: There is hyperinflation and chronic interstitial change. There is an elevated left hemidiaphragm with likely left basilar pleural effusion. Mild pulmonary vascular congestion consistent with pulmonary edema. No pneumothorax. The cardiac silhouette is stable with a dual chamber pacer. The bony thorax is grossly intact. Impression: Elevated left hemidiaphragm with minimal left basilar pleural effusion. Mild pulmonary vascular congestion. Dictated by Onel Santana MD @ 03/29/2024 4:09:19 PM (Electronically Signed)
[2024-03-29 15:25] LABS: Basophils Absolute Auto 0.07 K/uL (0.00-0.30); Basophils Percent Auto 0.9 % (0.0-3.0); Eosinophils Absolute Auto 0.14 K/uL (0.00-0.50); Eosinophils Percent Auto 1.9 % (0.0-7.0); Hematocrit 36.8 % (37.0-53.0); Hemoglobin* 11.3 gm/dL (13.5-17.5); Immature Granulocytes Abs Auto 0.01 K/uL (0.00-0.30); Immature Granulocytes Pct Auto 0.1 %; Lymphocytes Percent Auto 16.4 % (20-44); Mean Corpuscular HGB Conc 31 gm/dL (32-36); Mean Corpuscular Hemoglobin 24 pg (26-34); Mean Corpuscular Volume 79 fL (80-100); Monocytes Percent Auto 7.3 % (0.0-11.0); Neutrophils Percent Auto 73.4 % (42.0-72.0); Platelet Count* 184 K/uL (140-440); RDW Coefficient of Variation % 15.3 % (11.5-15.5); Red Blood Count 4.66 m/uL (4.30-5.90); White Blood Count* 7.54 K/uL (4.50-11.00)
[2024-03-29 15:26] LABS: Slide Review Reflex No
[2024-03-29 15:46] LABS: Troponin, Point-of-Care* 0.01 ng/ml (0.01-0.04)
[2024-03-29 15:47] LABS: Appearance Urine Clear (Clear); Bilirubin Urine Negative (Negative); Blood Urine Negative (Negative); Color Urine Yellow (Yellow); Glucose Urine Negative (Negative); Ketones Urine Negative (Negative); Leukocyte Esterase Urine Negative (Negative); Nitrite Urine Negative (Negative); Protein Urine Trace (Negative); Urobilinogen Urine 0.2 (0.2-1.0); pH Urine 7.5 (5.0-8.5)
[2024-03-29 15:48] LABS: Albumin* 4.3 g/dL (3.3-5.0); Chloride* 99 mmol/L (96-114); Sodium* 133 mmol/L (135-149)
[2024-03-29 15:49] LABS: Potassium* 4.6 mmol/L (3.6-5.1)
[2024-03-29 15:51] LABS: Alanine Aminotransferase* 20 U/L (4-50); Alkaline Phosphatase* 246 U/L (40-150); Anion Gap 8 mEq/L (7-15); Aspartate Amino Transferase* 32 U/L (12-35); Bilirubin Total* 0.7 mg/dL (0.1-1.5); Blood Urea Nitrogen* 26 mg/dL (7-30); Carbon Dioxide* 26 mmol/L (20-32); Est. Creatinine Clearance* 56.78; Estimated Glomerular Filt Rate 74 ml/min; Glucose* 104 mg/dL (60-115); Total Protein* 8.8 g/dL (6.0-8.3)
[2024-03-29 15:52] LABS: Calcium* 9.8 mg/dL (8.4-10.6)
--- OUTSIDE RECORDS SUMMARY | 2024-03-29 16:07 | XMS_ITS ---
Author Organization [facility] Address [address] [place] [address] Care Team Providers Care Manager Document Name Role Phone Unavailable Unavailable Unavailable Surgery Details Not on file Complications Check Surgery Details section. Procedure Estimated Blood Loss Check Surgery Details section. Procedure Findings Check Surgery Details section. Procedure Specimens Taken Check Surgery Details section.
--- OUTSIDE RECORDS SUMMARY | 2024-03-29 16:07 | XMS_ITS | Data Portability ---
Author Organization [facility], [facility] Address [address] [place] [address] Care Team Providers Care Signal Repairer Name Role Phone VOTELGATITO Primary Care Provider Assessment No assessment recorded. Plan of Treatment Reminders Order Date Submit Date Provider Last Modified By Organization Details Last Modified Time Details Appointments None recorded. Lab None recorded. Referral pelvic floor therapy referral - Please call patient to schedule Pelvic Floor Physical Therapy. Thank you 2022 023 [facility], [address] [facility], [place], [address], 3 16:13:23 Procedures None recorded. Surgeries None recorded. Imaging PET-CT, skull base to mid-thigh scan - PLEASE CONTACT PATIENT TO SCHEUDLE PSMA scan; Eyes to thighs; 2023 024 [email or web address] [facility], [address] , [place], [address], 4 08:09:42 Medication Orders None recorded. Patient TargetsNo targets recorded. Patient Instructions Encounter Date Encounter Id Patient Instructions Last Modified By Organization Details Last Modified Time 12/08/2023 [id number] History of prostate cancer and rising PSA PSA was initially detectable in 2010. PSA now increasing to 0.23 in last 1-2 years. His rectal exam today was notable for a small palpable nodule in the prostatic fossa (where the prostate used to be located prior to surgery) which could represent potentially recurrence of his cancer. Discussed possible causes of PSA rise including my concern for biochemical recurrent prostate cancer. Will pursue PSMA PET scan (which is a specialized PET scan to look for recurrent prostate cancer) to assess for recurrent disease. We have ordered this to be performed within the [facility] system per the patient's preference. 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 He is currently using 1-2 pads daily. He should continue exercises that he learned with physical therapy. But we recognize that some of his cognitive decline may prevent him from remembering to perform these exercises. Nocturia (urination at night) This is most bothersome urinary symptom based on his history today. Of note he has been diagnosed with obstructive sleep apnea and has intermittent use of his CPAP. I strongly recommend that he continues to work on using the CPAP as this will likely improve his urination at night. [email or web address] Not available 12/08/2023 18:11:33 Reason for Referral Pelvic Floor Therapy Referra l for Stress incontinence after prostatectomy Please call patient to schedule Pelvic Floor Physical Therapy. 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 PSA now increasing to 0.23 in last 1-2 years. SHARAD with small palpable nodule in the prostatic fossa. PSMA PET negative. He and daughter (Natalya) want to discuss salvage radiation (vs ongoing PSA surveillance).PLEASE CONTACT Natalya León (Daughter) for [phone] Referring Physician: Graham Jones, Urology, Encounter Date: 01/04/2024 Results Created Date Observation Date Name Description Value Unit Range Abnormal Flag Note LastModifiedBy Organization Detail LastModifiedTime 07/09/19 21 07/09/2020 PSA, serum or plasm a PSA 0.09 Not Available Not Availa ble 08/04/2020 16:50:47 07/13/19 23 07/13/2022 PSA, total , serum or plasm a PSA 0.1 Not Available Not Availa ble 08/08/2022 11:38:25 12/22/19 24 12/22/2023 PET-C T, skull base to mid-t high scan EXAM: PET CT PROSTA TE PSMA SUBSEQ UENT LOCATI ON: [facility] DATE: 024 INDICA TION: Subseq uent treatm ent planni ng and restag ing for malign ant neopla sm of the prosta te status post prosta tectom y in 2005 with elevat ed PSA compat ible with bioche mical recurr ence. COMPAR TRISTAN: CTA of the chest abdome n pelvis dated 021. TECHNI QUE: 60 minute s post intrav enous admini strati on of 8.2 mCi F-18 Pifluf olasta t, PET imagin g was perfor med from the skull vertex to mid thighs utiliz ing attenu ation correc tion with concur rent axial CT and PET/CT image fusion . Dose reduct ion techni ques were used. FINDIN GS: Physio logic radiot racer from the skull vertex to mid thigh. Mild to modera te senesc ent intrac ranial change s. Postop erativ e change s of bilate ral lenses . Modera te caroti d artery bifurc ation consul tation . Left chest implan table cardia c device with lead tips termin ating in the right atrium , right ventri tracie, and pereira ry sinus. Severe pereira ry artery calciu m/sten ting. TAVR. Elevat ion of the left hemidi aphrag m. Azygou s lobe/f issure . Cholel ithias is. Left renal cyst. Sigmoi d divert iculos is. Prosta tectom y. Pelvic phlebo liths. Multil evel degene rative change s of the spine. IMPRES ROD: No radiot racer positi ve diseas e. This report was electr onical ly interp reted by: DR. FLACO BLANDON [email or web address] [facility] [address] [place], [address], 01/04/2024 16:50:31 01/11/20 24 12/22/2023 PET-C T, skull base to mid-t high scan No observ ation record ed. [facility] [address] [place], [address], 01/11/2024 17:58:31 Result Notes Documentation Provider Name and Address Organization Details Recorded Time Pet-ct, Skull Base To Mid-thigh Scan : EXAM: PET CT PROSTATE PSMA SUBSEQUENT LOCATION: [facility] DATE: 12/22/2023 INDICATION: Subsequent treatment planning and restaging for malignant neoplasm of the prostate status post prostatectomy in 2005 with elevated PSA compatible with biochemical recurrence. COMPARISON: CTA of the chest abdomen pelvis dated 06/26/2020. TECHNIQUE: 60 minutes post intravenous administration of 8.2 mCi F-18 Piflufolastat, PET imaging was performed from the skull vertex to mid thighs utilizing attenuation correction with concurrent axial CT and PET/CT image fusion. Dose reduction techniques were used. FINDINGS: Physiologic radiotracer from the skull vertex to mid thigh. Mild to moderate senescent intracranial changes. Postoperative changes of bilateral lenses. Moderate carotid artery bifurcation consultation. Left chest implantable cardiac device with lead tips terminating in the right atrium, right ventricle, and coronary sinus. Severe coronary artery calcium/stenting. TAVR. Elevation of the left hemidiaphragm. Azygous lobe/fissure. Cholelithiasis. Left renal cyst. Sigmoid diverticulosis. Prostatectomy. Pelvic phleboliths. Multilevel degenerative changes of the spine. IMPRESSION: No radiotracer positive disease. This report was electronically interpreted by: DR. LEONIDAS JONES MD [address] [place] [address],[address], [address], [facility] 01/04/2024 16:50:31 Problems Name Problem SNOMED Code Status Onset Date Resolution Date Notes Provider Name and Address Organization Details Recorded Time Recurrent inguinal hernia 29397562757 08 Active 2014 K40.91 : Recurrent inguinal hernia Not Available [facility] 0 00:15:59 Pain Active 2016 R10.30 : On examinati on - abdominal pain - hypogastr ium Not Available [facility] 0 00:15:59 Genuine stress incontine nce 76524129 Active 2016 N39.3 : Genuine stress incontine nce Not Available [facility] 0 00:15:59 History of malignant neoplasm of prostate 876734786 Active 2015 Z85.46 : History of malignant neoplasm of prostate Not Available [facility] 0 00:15:59 Prostate specific antigen above reference range 302014807 Active 2023 GRAHAM JONES MD [address] [place] [address], [address] [place] [address] , [facility] 4 14:40:05 Stress incontine nce after prostatec edi 655443239 Active 2023 GRAHAM JONES MD [address] [place] [address], [address] [place] [address] , [facility] 4 14:40:05 Malignant tumor of prostate 402586184 Active 2023 GRAHAM JONES MD [address] [place] [address], [address] [place] [address] , [facility] 4 17:27:21 Nocturia 878087692 Active 2023 GRAHAM JONES MD [address] [place] [address], [address] [place] [address] , [facility] 4 17:29:24 Problem Notes None recorded. Procedures Surgical History Date Name Laterality Status Provider Name and Address Organization Details Recorded Time 12/08/19 24 COMPLEX VISIT completed GRAHAM JONES MD [address] [place] [address], [address] [place] [address], [facility] 12/08/2023 14:41:51 12/08/19 24 Past Data Reviewed completed GRAHAM JONES MD [address] [place] [address], [facility] 12/08/2023 14:48:09 06/12/[address] colonography screening completed Not Available [facility] Note 08/23/2021 13:28:44 07/14/19 21 replacement of aortic valve completed Not Available Health Note 08/23/2021 13:28:44 10/15/19 17 Insert heart pm atrial completed Not Available Health Note 08/23/2021 13:28:44 04/12/20 16 Diagnostic colonoscopy completed Not Available Health Note 08/23/2021 13:28:44 01/07/20 16 Xcapsl ctrc rmvl cplx wo ecp completed Not Available Health Note 08/23/2021 13:28:44 02/07/20 15 Prp i/pedro init reduc >5 yr completed Not Available Health Note 08/23/2021 13:28:44 04/12/20 13 Colonoscopy thru stoma spx completed Not Available Health Note 08/23/2021 13:28:44 01/25/20 13 Cystoscopy completed Not Available Health Note 08/23/2021 13:28:44 11/25/19 09 Cystoscopy completed Not Available Health Note 08/23/2021 13:28:44 03/29/20 06 Laps surg [id number] rpbic rad completed Not Available Health Note 08/23/2021 13:28:44 12/09/19 06 Biopsy of prostate completed Not Available Health Note 08/23/2021 13:28:44 Anal/urinary muscle study completed Not Available Health Note 08/23/2021 13:28:[address] gastr adj device completed Not Available Health Note 08/23/2021 13:28:44 Excise epiphyseal bar completed Not Available Health Note 08/23/2021 13:28:44 Laparoscopic cholecystectomy completed Not Available Health Note 08/23/2021 13:28:44 Hernia repair w/mesh completed Not Available Health Note 08/23/2021 13:28:44 Removal of prostate completed Not Available Health Note 08/23/2021 13:28:44 Prostatectomy (turp) completed Not Available Health Note 08/23/2021 13:28:44 Imaging Results Imaging Date Name Status LastModified by Organiz ation Details LastModified Time 12/22/2023 PET-CT, skull base to mid-thigh scan completed [address], [address], 01/04/2024 16:50:31 12/22/2023 PET-CT, skull base to mid-thigh scan completed [address], [address], 01/11/2024 17:58:31 Procedure Notes None recorded. Medical Equipment None Reported. Allergies Allergen ID Allergen Name Allergen Category Reaction Reaction Severity Criticality Documentation Date Start Date Code Code System Note Provider Name and Address Organization Details Recorded Time 313753 latex environme nt,medica tion Not available Not available Not available 08/23/2021 04159 91 RxNorm Stella Butcher [facility] 13:48:38 Medications Name Sig Start Date Stop Date Status Note LastModified by Organization Details LastModified Time furosemid e 40 mg tablet active if edema Not Available Not Available Not Available atorvasta tin 40 mg tablet TAKE 1 TABLET BY MOUTH AT BEDTIME active Not Available Not Available No t Available metformin 500 mg tablet TAKE 1 TABLET BY MOUTH TWICE DAILY WITH MEALS. DISCONTI NUE 1000 MG DOSE. active Not Available Not Available No t Available cephalexi n 250 mg capsule TAKE 1 CAPSULE BY MOUTH THREE TIMES DAILY FOR 10 DAYS 10/26 completed Not Available Not Available Not Available clopidogr el 75 mg tablet TAKE 1 TABLET BY MOUTH ONCE DAILY active Not Available Not Available No t Available Multiple Vitamins tablet Take 1 tablet every day by oral route. 12/07 completed HN: Patient reports taking Not Available Not Available Not Available cephalexi n 500 mg capsule TAKE 1 CAPSULE BY MOUTH THREE TIMES DAILY FOR 5 DAYS 10/26 completed Not Available Not Available Not Available metformin 1,000 mg tablet TAKE 1 TABLET BY MOUTH TWICE DAILY WITH MEALS 12/07 completed Not Available Not Available Not Available nitroglyc antoni 0.4 mg sublingua l tablet DISSOLVE ONE TABLET UNDER THE TONGUE EVERY 5 MINUTES NEEDED FOR CHEST PAIN. DO NOT EXCEED A TOTAL OF 3 DOSES IN 15 MINUTES IF NOT RELIEVED , CALL 911 active Not Available Not Available No t Available gabapenti n 300 mg capsule TAKE 2 CAPSULES BY MOUTH AT BEDTIME AND 1 IN THE MORNING 12/07 completed Not Available Not Available Not Available Pepcid 20 mg tablet Take 1 tablet twice a day by oral route. 12/07 completed HN: Patient reports no longer taking HN: Patient reports no longer taking Not Available Not Available Not Available Low Dose Aspirin 81 mg tablet,de layed release Take 1 tablet every day by oral route. 12/07 completed Not Available Not Available Not Available metoprolo l tartrate 25 mg tablet Take 0.5 tablets twice a day by oral route. 08/23 completed HN: Patient reports no longer taking Not Available Not Available Not Available duloxetin e 20 mg capsule,d elayed release TAKE 1 CAPSULE BY MOUTH AT BEDTIME FOR NEUROPAT HY 12/07 completed pregabal in instead Not Available Not Available Not Available pregabali n 50 mg capsule TAKE 1 CAPSULE BY MOUTH TWICE DAILY active Not Available Not Available No t Available Vitamin C active Not Available Not Kathy ilable Not Available atorvasta tin 1 tablet PO daily 12/07 completed HN: Patient reports no longer taking Not Available Not Available Not Available senna active Not Available Not Availa ble Not Available Miralax active Not Available Not Avail able Not Available multivita min Don? t know 1/day 12/07 completed Not Available Not Available Not Available Tylenol 8 Hour active Not Available Not Available Not Available Cymbalta 1 PO daily 08/23 completed HN: Patient reports no longer taking Not Available Not Available Not Available Contour Next Test Strips USE 1 STRIP TO CHECK GLUCOSE TWICE DAILY active Not Available Not Available No t Available Bydureon 2 mg/0.65 mL subcutane ous pen injector Inject 1 injector every week by subcutan eous route. 12/07 completed Not Available Not Available Not Available Jardiance 10 mg tablet TAKE 1 TABLET BY MOUTH ONCE DAILY 12/07 completed 11/29 stop taking until pcp recommen ds beginnin g Not Available Not Available Not Available Ozempic 1 mg/dose (2 mg/1.5 mL) subcutane ous pen injector INJECT 1MG SUBCUTAN EOUSLY ONCE WEEKLY ON THE SAME DAYOF EACH WEEK 12/07 completed HN: Patient reports no longer taking Not Available Not Available Not Available Ozempic 0.25 mg or 0.5 mg (2 mg/1.5 mL) subcutane ous pen injector 0.25mg/0 .5mg Once a week/day 12/07 completed HN: Patient reports no longer taking Not Available Not Available Not Available Ozempic 1 mg/dose (4 mg/3 mL) subcutane ous pen injector INJECT 1MG SUBCUTAN EOUS ONCE WEEKLY 12/07 completed Not Available Not Available Not Available Pogo Automatic Test Cartridge 30 gauge combo pack USE TO TEST GLUCOSE 1-2 TIMES DAILY 12/07 completed Not Available Not Available Not Available Brainstro ng Memory Support active prevagen Not Available Not Available Not Available aspirin 325 mg capsule Don? t know 1/day 10/26 completed HN: Patient reports no longer taking Not Available Not Available Not Available Vitals Date Recorded Body height Body mass index (BMI) Body weight Provider Name and Address Organization Details Last Updated DateTime 10/26/2022 170.18 cm 26.6 kg/m2 75104[address] [facility] 10/26/2022 15:03:51 Date Recorded Body height Body mass index (BMI) Body weight Provider Name and Address Organization Details Last Updated DateTime 12/08/2023 170.18 cm 26.6 kg/m2 [address]3440.[address] [facility] 12/08/2023 14:37:15 Date Recorded Body height Body mass index (BMI) Body weight Provider Name and Address Organization Details Last Updated DateTime 08/06/2020 175.26 cm 28.8 kg/m2 14798.[address] [facility] 08/06/2020 12:08:30 Date Recorded Body mass index (BMI) Body height Body weight Provider Name and Address Organization Details Last Updated DateTime 08/23/2021 27.1 kg/m2 170.18 cm 05588.5733 772778 g Not Available Health Note 08/23/2021 13:33:08 Social History Question Answer Notes LastModified by Organizat ion Details LastModified Time Tobacco Smoking Status Former Smoker Not Available Health Note 10/22/2022 15:27:45 What Is Your Level Of Alcohol Consumption? None Information not available 12/08/2023 What Is Your Level Of Caffeine Consumption? Occasional [email or web address] Information not available 10/22/2022 How Much Tobacco Do You Chew? None [email or web address] Information not available 10/22/2022 Are You Currently Employed? No [email or web address] Information not available 10/26/2022 Do You Or Have You Ever Used E-cigarettes Or Vape? Never Used Electronic Cigarettes [email or web address] Information not available 10/22/2022 When Did You Quit Smoking? 16+yearssincel astcigarette Information not available 12/08/2023 Race White Information n ot available 11/21/2019 Ethnicity Not /Latin o Information not available 08/06/2020 Preferred Language Wolof Information not available 08/06/2020 Recreational Drug Use No [email or web address] Information not available 10/26/2022 Marital Status Informati on not available 11/21/2019 What Was The Date Of Your Most Recent Tobacco Screening? 12/08/2023 Information not available 12/08/2023 What Is Your Relationship Status? [email or web address] Information not available 10/22/2022 Are You Sexually Active? No [email or web address] Information not available 10/22/2022 Do You Or Have You Ever Used Smokeless Tobacco? Never Used Smokeless Tobacco [email or web address] Information not available 10/22/2022 How Much Tobacco Do You Smoke? 1 PPD Information not available 08/06/2020 Do You Use Any Illicit Or Recreational Drugs? No [email or web address] Information not available 10/22/2022 Has Tobacco Cessation Counseling Been Provided? No [email or web address] Information not available 10/26/2022 How Many Years Have You Smoked Tobacco? 25 [email or web address] Information not available 10/22/2022 Do You Or Have You Ever Used Any Other Forms Of Tobacco Or Nicotine? No [email or web address] Information not available 10/26/2022 Sex: Male Functional Status None recorded. Mental Status None recorded. Family History Relationship Description Onset Age of this Age Resolved Age Notes LastModified by Organization Details LastModified Time Unspecified Relation Family history of malignant neoplasm of prostate 45 [email or web address] Not available 2021 13:28:43 Father Family history of malignant neoplasm [email or web address] Not available 2021 13:28:43 Notes:Depression:Runs in Fam narinder Diabetes:Runs in Family Cancer, lung:Runs in Family Medical History Condition Response Sexually Transmitted Infection N Diabetes Y Bleeding Disorder Y High Blood Pressure N Kidney Stones N Cancer Y Lung Disease N Depression N High Cholesterol Y GERD/Acid Reflux N Heart Disease Y Immunizations Vaccine Type Date Status Provider Name and Address Organization Details Recorded Time SARS-COV-2 (COVID-19) vaccine, UNSPECIFIED 07/12/2021 completed [facility] Plank null, [facility] 12/08/2023 14:30:21 influenza, unspecified formulation 06/13/2021 completed Magdalena Plank null, [facility] 12/08/2023 14:30:22 pneumococcal, unspecified formulation 06/12/2021 completed Monica Ruiz null, [facility] 10/26/2022 15:03:54 zoster recombinant 04/02/2018 completed Stella Daviesbetsymarquita null, [facility] 08/23/2021 13:48:19 Influenza, high-dose, trivalent, PF 02/22/2017 completed Stella Daviesanick null, [facility] 08/23/2021 13:48:20 COVID-19, mRNA, LNP-S, PF, 30 mcg/0.3 mL dose 03/25/2021 completed Stella Walterk null, [facility] 08/23/2021 13:48:20 Influenza, split virus, trivalent, preservative 04/07/2005 completed Stella Daviesanick null, [facility] 08/23/2021 13:48:20 Influenza, split virus, trivalent, preservative 03/22/2004 completed Stella Daviesanick null, [facility] 08/23/2021 13:48:20 Influenza, split virus, trivalent, preservative 05/17/2002 completed Stella Daviesanick null, [facility] 08/23/2021 13:48:20 Influenza, split virus, trivalent, preservative 04/05/2012 completed Stella Daviesanick null, [facility] 08/23/2021 13:48:20 Influenza, split virus, trivalent, preservative 05/21/2008 completed Stella Samsonanick null, [facility] 08/23/2021 13:48:20 Influenza, high-dose, trivalent, PF 03/06/2014 completed Stella Samsonanick null, [facility] 08/23/2021 13:48:20 Influenza, split virus, trivalent, PF 03/23/2010 completed Stella Daviesanick null, [facility] 08/23/2021 13:48:20 Influenza, adjuvanted, trivalent, PF 03/23/2017 completed Stella Baranick null, [facility] 08/23/2021 13:48:20 Influenza, high-dose, trivalent, PF 04/02/2018 completed Stella Baranick null, [facility] 08/23/2021 13:48:20 zoster live 12/08/2010 completed Stella Baranick null, [facility] 08/23/2021 13:48:20 COVID-19, mRNA, LNP-S, PF, 30 mcg/0.3 mL dose 08/25/2020 completed Stella Baranick null, [facility] 08/23/2021 13:48:20 Td (adult), 5 Lf tetanus toxoid, preservative free, adsorbed 01/15/2015 completed Stella Baranick null, [facility] 08/23/2021 13:48:20 Td (adult), 2 Lf tetanus toxoid, preservative free, adsorbed 07/22/2003 completed Stella Baranick null, [facility] 08/23/2021 13:48:20 influenza, unspecified formulation 04/12/2007 completed Stella Baranick null, [facility] 08/23/2021 13:48:20 COVID-19, mRNA, LNP-S, PF, 30 mcg/0.3 mL dose 08/04/2020 completed Stella Baranick null, [facility] 08/23/2021 13:48:20 Influenza, split virus, trivalent, preservative 03/27/2006 completed Stella Baranick null, [facility] 08/23/2021 13:48:20 Influenza, split virus, trivalent, PF 03/10/2011 completed Stella Baranick null, [facility] 08/23/2021 13:48:20 Influenza, split virus, trivalent, preservative 05/06/2003 completed Stella Baranick null, [facility] 08/23/2021 13:48:20 Influenza, split virus, trivalent, PF 04/22/2009 completed Stella Baranick null, [facility] 08/23/2021 13:48:20 Influenza, adjuvanted, trivalent, PF 05/06/2020 completed Stella Butcher null, [facility] 08/23/2021 13:48:20 Influenza, split virus, trivalent, PF 06/06/2013 completed Stella Butcher null, [facility] 08/23/2021 13:48:20 Influenza, high-dose, trivalent, PF 02/14/2019 completed Stellara Butcher null, [facility] 08/23/2021 13:48:20 Novel [id number] 04/22/2009 completed Stella Samsonbetsyk null, [facility] 08/23/2021 13:48:20 Influenza, adjuvanted, quadrivalent, PF 02/18/2021 completed Stella Butcher null, [facility] 08/23/2021 13:48:20 zoster recombinant 08/13/2018 completed Stellara Butcher null, [facility] 08/23/2021 13:48:20 influenza, unspecified formulation 01/10/2022 completed Magdalena Bullock null, [facility] 12/08/2023 14:30:22 pneumococcal, unspecified formulation 01/10/2022 completed Monica Ruiz null, [facility] 10/26/2022 15:03:54 SARS-COV-2 (COVID-19) vaccine, UNSPECIFIED 01/10/2022 completed Magdalena Bullock null, [facility] 12/08/2023 14:30:21 Pneumococcal conjugate PCV 13 01/15/2015 completed Stella Butcher null, [facility] 08/23/2021 13:48:20 pneumococcal polysaccharide PPV23 07/22/2003 completed Chelsea Dunn null, [facility] 01/28/2021 11:35:40 pneumococcal polysaccharide PPV23 12/08/2010 completed Stella Butcher null, [facility] 08/23/2021 13:48:20 Past Encounters Encounter ID Performer Location Encounter Start Date Encounter Closed Date Diagnosis/Indication Diagnosis SNOMED-CT Code Diagnosis ICD10 Code [id number] Jude Lizarraga MD [facility] [address] [facility] [address] [place] [address] 08/06/2020 11:54:54 08/06/2020 12:50:10 History of malignant neoplasm of prostate 483124028 Z85.46 Male urina ry stress incontinence [id number] N39.3 Primary er ectile dysfunction [id number] N52.9 [id number] Jude Lizarraga MD [address] [address] 08/23/2021 13:33:04 08/23/2021 14:16:26 Prostate specific antigen above reference range [id number] R97.20 History of malignant neoplasm of prostate [id number] Z85.46 Stress inc ontinence after prostatectomy 071065372 N39.3 [id number] Jude Lizarraga MD [address] [address] 10/26/2022 14:56:19 10/26/2022 15:43:29 Prostate specific antigen above reference range [id number] R97.20 History of malignant neoplasm of prostate 779510177 Z85.46 Stress inc ontinence after prostatectomy [id number] N39.3 [id number] GRAHAM JONES MD [address] [address] 12/08/2023 14:12:57 12/11/2023 09:08:50 History of malignant neoplasm of prostate [id number] Z85.46 Prostate s pecific antigen above reference range [id number] R97.20 Stress inc ontinence after prostatectomy [id number] N39.3 Malignant tumor of prostate 773298823 C61 Nocturia [id number] R35.1 Health Concerns Section Related Observation LastModified by Organization Detai ls LastModified Time None Recorded Concern Status LastModified by Organization Details LastModified Time None Recorded Advance Directives Directive None Recorded Payers Encounter Date Sequence Insurance Name Policy Number Policy Benitez Covered Member ID Benitez Member ID Guarantor Name 08/06/2020 1 [place] [id number] Sumit León [id number] Sumit León 08/23/2021 1 [place] (MED[place]) [id number] Sumit León [id number] Sumit León 10/26/2022 1 [facility]: (MEDICARE REPLACEMENT PPO) [id number] Sumit León [id number] Sumit Patel Janjaison 12/08/2023 1 [facility]: (MEDICARE REPLACEMENT PPO) [id number] Sumit León [id number] Sumit León Notes Date Note Type Note Provider Name and Address Organization Details Recorded Time 08/06/2020 text/html HPI Notes: Albert kelley is 13 year(s) status post a robotic radical prostatectomy. PSA: 0.09 Post Score: 5+3 Stage: T3b Margin status: negative Percent involvement: 6% AUA / IPSS 1. Sensation of not emptying bladder completely: less than 50% (2) 2. Urinates again less than two hours after finished urinating: Less than 20% (1) 3. Has to start and stop when finishes urinatin% (3) 4. Finds it difficult to postpone urination: less than 50% (2). 5. Has a weak urinary stream: less than 50% (2). 6. Push or strain to begin urination: not at all (0). 7. Experiences nocturia: 1 Calculated AUA /IPSS Score: 11 Continence Function Questionnaire 1. Urinary Control: ____. 2. Frequency of incontinence: ____. 3. Problem with urinary function: ____. 4.Pads used per day: No more than 1 pad (2). Total score: ____ Quality of Life QOL due to urinary symptoms: Pleased Jude Lizarraga MD [address] [place] [address],[address], [place], [address], [facility] 08/06/2020 12:29:44 08/23/2021 text/html HPI Notes: Albert kelley is 14 year(s) status post a robotic radical prostatectomy. PSA: 0.08, last year 0.09 Valery Score: 5+3 Stage: T3b Margin status: negative Percent involvement: 6% AUA / IPSS 1. Sensation of not emptying bladder completely: less than 50% (2) 2. Urinates again less than two hours after finished urinating: Less than 20% (1) 3. Has to start and stop when finishes urinating: Less than 50% (2) 4. Finds it difficult to postpone urination: less than 50% (2). 5. Has a weak urinary stream: less than 50% (2). 6. Push or strain to begin urination: not at all (0). 7. Experiences nocturia: 1 Calculated AUA /IPSS Score: 10 Continence Function Questionnaire 1. Urinary Control: ____. 2. Frequency of incontinence: ____. 3. Problem with urinary function: ____. 4.Pads used per day: No more than 1 pad (2). Total score: {{}} Quality of Life QOL due to urinary symptoms: Pleased Jude Lizarraga MD [address] [place] [address],[address], [address], [facility] 08/23/2021 14:00:05 10/26/2022 text/html HPI Notes: Albert kelley underwent a robotic radical prostatectomy on 03/29/2006. PSA: 0.1, last year 0.09 Valery Score: 5+3 Stage: T3b Margin status: negative Percent involvement: 6% AUA / IPSS 1. Sensation of not emptying bladder completely: less than 50% (2) 2. Urinates again less than two hours after finished urinating: Less than 20% (1) 3. Has to start and stop when finishes urinating: Less than 50% (2) 4. Finds it difficult to postpone urination: less than 50% (2). 5. Has a weak urinary stream: less than 50% (2). 6. Push or strain to begin urination: not at all (0). 7. Experiences nocturia: 1 Calculated AUA /IPSS Score: 10 Continence Function Questionnaire 1. Urinary Control: ____. 2. Frequency of incontinence: ____. 3. Problem with urinary function: ____. 4.Pads used per day: No more than 1 pad (2). Total score: {{}} Quality of Life QOL due to urinary symptoms: Pleased Jude Lizarraga MD [address] [place] [address],[address], [place], [address], [facility] 10/26/2022 15:12:31 12/08/2023 text/html HPI Notes: Albert nt underwent a robotic radical prostatectomy on 03/29/2006. Current PSA: 0.23 Last PSA: 0.10 Valery Score: 5+3 Stage: T3b Margin status: negative Percent involvement: 6% PSA 2018: 0.07 2019: 0.07 2020: 0.09 2020: 0.09 22: 0.19 June 2023: 0.01 December 2023: 0.23 Denies hematuria. Nocturia up to x5 He wears 1-3 depends in a give day. He is joined by his daughter today provides majority the history. She reports he has had some neurocognitive decline. IPSS 10/26/22: 10 (QoL: pleased) GRAHAM JONES MD [address] [facility],[address], [place], [address], [place] [facility] 12/29/2023 10:28:11
--- OUTSIDE RECORDS SUMMARY | 2024-03-29 16:07 | XMS_ITS | Referral Summary ---
Author Organization [facility] Address [address] [place] [address] Care Team Providers Care Bottle Booth Attendant Name Role Phone No Contact, Pcp Primary Care Provider Unavailabl e Source Comments Patient records contain information from all sites at [facility]. For routine questions regarding patient records, call [phone] during business hours, M-F 8:00 AM - 5:00 PM Central Time. Record requests for emergency care only can be directed to [phone] at any time.[facility] Allergies Active Allergy Reactions Criticality Noted Date Comments Adhesive Tape-Silicones Rash 09/14/2016 Medications * This document contains information received from the source organization and may not represent a complete record from that organization. atorvastatin (LIPITOR) 40 mg tablet Take 40 mg by mouth daily. Active furosemide (LASIX) 40 mg tablet Take 40 mg by mouth as needed. PRN for weight gain of 3 lbs overnight or 5 lbs in a week Active metFORMIN (GLUCOPHAGE) 1,000 mg tablet Take 1,000 mg by mouth 2 (two) times a day with meals. Active nitroglycerin (NITROSTAT) 0.[address] 0.4 mg under the tongue every 5 (five) minutes as needed for chest pain. Active multivitamin-mi elenbw-LI-obqmn n (THERAPEUTIC-M) 0.4-250 mg-mcg per tablet Take 1 tablet by mouth daily. Active ergocalciferol, vitamin D2, 50 mcg (2,000 unit) tablet Take 2,000 Units by mouth daily. Active vitamin E 400 unit capsule Take 400 Units by mouth daily. Active DULoxetine (CYMBALTA) [address] capsule Take 1 capsule (20 mg total) by mouth daily. 90 capsule 3 1 Active empagliflozin (Jardiance) 10 mg tablet Take 10 mg by mouth every morning before breakfast. Active semaglutide (Ozempic) 0.25 mg or 0.5 mg(2 mg/1.5 mL) pen injector injection Inject 0.25 mg under the skin every 7 (seven) days. Active sesame oil with abena geranium oil Administer 2 sprays into each nostril 2 (two) times a day. 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 Immunizations Name Administration Dates Next Due H1N1 Inj 04/22/2009 HZV (ZOSTAVAX) 12/08/2010 Influenza TIV (IM) 05/06/2020, 7,06/12/2013,2011,03/10/2011,03/23/2010,05/21/2008,1 ,04/07/2005,03/22/2004, 003,05/17/2002 Influenza, Quadrivalent, Adj uvanted, Preservative Free 02/18/2021 Influenza, Seasonal, Injectable 04/05/20 12,05/21/2008,03/27/2006,2004,03/22/2004,05/06/2003,05/17/2002 Influenza, Unspecified 03/23/2010,04/22/2009,06/2006 PCV13 01/15/2015 PPSV23 12/08/2010,07/22/2003 RZV (SHINGRIX) 08/13/2018,04/02/2018 SARS-COV-2 (COVID-19) - PFIZ ER (Discontinued)(12 years or older) 03/25/2021 SARS-COV-2 (COVID-19) - PFIZ ER TS(Discontinued)(12 years or older) 10/20/2021 Td (Adult), adsorbed 07/22/2003 Td Preservative Free (TENIVA C, DECAVAC) 01/15/2015 Tdap 07/22/2003 influenza trivalent high dos e (HD)(PF) 02/14/2019,04/02/2018,02/22/2017,2016,04/01/2015,03/06/2014 influenza trivalent vaccine (6 months and older)(PF) 06/06/2013,03/10/2011,03/23/2010,2008 Social History Tobacco Use Types Packs/Day Years Used Date Smoking Tobacco: Former Cigarettes 1 30 1 950 - 1980 Alcohol Use Standard Drinks/Week Comments Never 0 (1 standard drink = 0.6 oz pur e alcohol) PHQ-2 Answer Date Recorded PHQ-2 Score 0 07/30/2021 Depression Answer Date Recor ded PHQ-9 Total Score (max 27) 1 07/30 Nutrition Answer Date Recorded Nutrition: EVOO Fat Source Unknown 08/01 Nutrition: Servings of Fruits/Vegetables per Day Not on file 08/01/2020 Dental Answer Date Recorded Dental: Regular Dentist Unknown 08/01/19 Sex and Gender Information Value Date Recorded Sex Assigned at Not on file Legal Sex Male 11:16 AM FOLDER MACHINE OPERATOR Gender Identity Not on file Sexual Orientation Not on file 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 Not on file Not on file Not on file Last Filed Vital Signs Vital Sign Reading Time Taken Comments Blood Pressure 110/57 07/31/2021 3:45 PM FOLDER MACHINE OPERATOR Pulse 67 07/31/2021 3:45 PM FOLDER MACHINE OPERATOR Temperature 36.3 ??C (97.3 ??F) 07/31/2021 3:45 PM CS T Respiratory Rate 16 07/31/2021 10:30 AM FOLDER MACHINE OPERATOR Oxygen Saturation 98% 07/31/2021 3:45 PM FOLDER MACHINE OPERATOR Inhaled Oxygen Concentration - - Weight 80 kg (176 lb 5.9 oz) 07/30/2021 1:00 AM FOLDER MACHINE OPERATOR Height 172.5 cm (5' 7.91) 07/31/2021 11:[address] Body Mass Index 26.89 07/30/2021 1:00 AM FOLDER MACHINE OPERATOR Plan of Treatment Not on file Medical Devices Implanted Type Area Furrier Shop Supervisor Device Identifier Shelf Expiration Date Model / Serial / Lot Bsc [id number] Acuity X4 Spiral Short [id number] Implanted:09/2016 (Quantity not on file) Cardiac Lead [employer] 4674 ACUITY X4 SPIRAL SHORT / [id number] / Bs 7741 Ingevity Mri [id number] Implanted:09/2016 (Quantity not on file) Cardiac Lead [employer] 7741 INGEVITY MRI / [id number] / Bsc 7742 Ingevity Mri [id number] Implanted:09/2016 (Quantity not on file) Cardiac Lead [employer] 7742 INGEVITY MRI / [id number] / Cardiac Lead-10/14/2016 Implanted:10/2016 (Quantity not on file) Cardiac Lead Heart [employer] [id number] / / Cardiac Lead-10/14/2016 Implanted:10/2016 (Quantity not on file) Cardiac Lead Heart [employer] [id number] / / Cardiac Lead-10/14/2016 Implanted:10/2016 (Quantity not on file) Cardiac Lead Heart [employer] [id number] / / [facility] U128 Valitude [id number] Implanted:09/2016 (Quantity not on file) Pacemaker [employer] U128 VALITUDE / [id number] / Pacemaker-10/14 Implanted:10/2016 (Quantity not on file) Pacemaker Chest [employer] U128 VALITUDE TETRYL BLENDER OPERATOR-P [id number] / / Procedures Procedure Name Priority Date/Time Associated Diagnosis Comments BASIC METABOLIC PANEL, S/P Routine 07/31/2021 9:05 AM FOLDER MACHINE OPERATOR HEMOGLOBIN A1C, B STAT 07/29/2021 2:5 4 PM FOLDER MACHINE OPERATOR from Last 3 Months or Most Recently Relevant to Health Maintenance Results * (ABNORMAL) Basic Metabolic Panel (07/31/2021 9:05 AM FOLDER MACHINE OPERATOR) Potassium, S 4.8 3.6 - 5.2 mmol/L 07/31/2021 11:24 AM FOLDER MACHINE OPERATOR DTL Sodium, S 135 135 - 145 mmol/L 07/31/2021 11:24 AM FOLDER MACHINE OPERATOR DTL Chloride, S 101 98 - 107 mmol/L 07/31/2021 11:24 AM FOLDER MACHINE OPERATOR DTL Bicarbonate, S 23 22 - 29 mmol/L 07/31/2021 11:24 AM FOLDER MACHINE OPERATOR DTL Anion Gap 11 7 - 15 07/31/2021 11:24 AM FOLDER MACHINE OPERATOR DTL BUN (Blood Urea Nitrogen), S 36(H) 8 - 24 mg/dL 07/31/2021 11:24 AM FOLDER MACHINE OPERATOR DTL Creatinine 1.27 0.74 - 1.35 mg/dL 07/31/2021 11:24 AM FOLDER MACHINE OPERATOR DTL eGFR-Non Black/ 52(L) >=60 mL/min/BSA 07/31/2021 11:24 AM FOLDER MACHINE OPERATOR DTL Comment: ----ADDITIONAL INFORMATION---- Estimated GFR calculated using the 2009 CKD_EPI creatinine equation. eGFR-Black/Afri can Burundian 60 >=60 mL/min/BSA 07/31/2021 11:24 AM FOLDER MACHINE OPERATOR DTL Comment: ----ADDITIONAL INFORMATION---- Estimated GFR calculated using the 2009 CKD_EPI creatinine equation. Calcium, Total, S 9.6 8.8 - 10.2 mg/dL 07/31/2021 11:24 AM FOLDER MACHINE OPERATOR DTL Glucose, S 170(H) 70 - 140 mg/dL 07/31/2021 11:24 AM FOLDER MACHINE OPERATOR DTL Blood (Blood, Venous) 07/31/2021 9:05 AM FOLDER MACHINE OPERATOR 07/31/2021 9:21 AM FOLDER MACHINE OPERATOR Amrik Shankar M.D. LAB BLOOD ADD-ON Final Result [address] [address], [facility] [address] [place] [address] * (ABNORMAL) Hemoglobin A1c (07/29/2021 2:54 PM FOLDER MACHINE OPERATOR) Hemoglobin A1c, B 6.4(H) 4.0 - 5.6 % 07/29/2021 3:41 PM FOLDER MACHINE OPERATOR DTL Comment: Hemoglobin A1c values of 5.7-6.4 percent indicate an increased risk for developing diabetes mellitus. In diabetic patients, HbA1c goals should be discussed with healthcare provider. Blood (Blood, Venous) 07/29/2021 2:54 PM FOLDER MACHINE OPERATOR 07/29/2021 3:10 PM FOLDER MACHINE OPERATOR us Iliana Montesinos M.D. LAB BLOOD ADD-ON Final Resu lt [facility] [address] [place] [address], [place] [facility] [address] [place] [address] from Last 3 Months or Most Recently Relevant to Health Maintenance Insurance [facility] Advance Directives For more information, please contact: [phone] * Full Code (Latest Code Status on File) Date Activated Date Inactivated Comments 07/29/2021 2:27 PM 07/31/2021 6:25 PM Question Answer Comments Full Code: Discussed Care Teams Bottle Booth Attendant Relationship Specialty Start Date End Date No Contact, Pcp PCP - General Family Medicine 03/25/21
--- OUTSIDE RECORDS SUMMARY | 2024-03-29 16:07 | XMS_ITS | Clinical Summary ---
Author Organization [facility] Address [address] [place] [address] Care Team Providers Care Pattern Mechanic Name Role Phone No Contact, Pcp Primary Care Provider Unavailabl e Source Comments Patient records contain information from all sites at [facility]. For routine questions regarding patient records, call [phone] during business hours, M-F 8:00 AM - 5:00 PM Central Time. Record requests for emergency care only can be directed to [phone] at any time.[facility] Allergies Active Allergy Reactions Criticality Noted Date [...] as needed for chest pain. 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 Not on file Not on file Last Filed Vital Signs Vital Sign Reading Time Taken Comments Blood Pressure 110/57 07/31/2021 3:45 PM CHEMICAL SPRAYER Pulse 67 07/31/2021 3:45 PM CHEMICAL SPRAYER Temperature 36.3 ??C (97.3 ??F) 07/31/2021 3:45 PM CS T Respiratory Rate 16 07/31/2021 10:30 AM CHEMICAL SPRAYER Oxygen Saturation 98% 07/31/2021 3:45 PM CHEMICAL SPRAYER Inhaled Oxygen Concentration - - Weight 80 kg (176 lb 5.9 oz) 07/30/2021 1:00 AM CHEMICAL SPRAYER Height 172.5 cm (5' 7.91) 07/31/2021 11:[address] Body Mass Index 26.89 07/30/2021 1:00 AM CHEMICAL SPRAYER Plan of Treatment Health Maintenance Due Date Last Done Comments Diabetic Office Visit with F oot Exam 1940 Dilated Eye Exam 1940 Office Visit for Blood Press ure Check / Re-check 1940 Urine Albumin 1940 Hepatitis B Vaccines (1 of 3 - Risk 3-dose series) 1999 RSV vaccine - (32-3 6 weeks) or 60+ years (1 - 1-dose 75+ series) 2014 Depression Screening (Annual PHQ-2) 06/12/2023 Fall Risk Screen (Annual) 06/12/2023 COVID-19 Vaccine (8 - 2023-2 5 season) 2024 04/25/2023, 05/18/2022, 01/10/2022, Additional history exists Influenza Vaccine (#1) 2024 , 04/01/2022, 01/29/2022, Additional history exists Hemoglobin A1C 05/14/2024 11/13/2023, 04/12, 07/13/2022, Additional history exists Creatinine Level (Kidney Fun ction Test) 06/29/2024 06/29/2023, 07/13/2022, 12/08/2021, Additional history exists Potassium Level 06/29/2024 06/29/2023, 02/0 06/2022, 12/08/2021, Additional history exists Sodium Level 06/29/2024 06/29/2023, 02/0 06/2022, 12/08/2021, Additional history exists DTaP,Tdap,and Td Vaccines (3 - Td or Tdap) 01/15/2025 01/15/2015, 07/22/2003, 07/22/2003 Zoster Vaccines Completed 08/13/2018, 03/13, 12/08/2010 Pneumococcal vaccine (65+ years) Completed 01/10/2022, 06/12/2021, 01/15/2015, Additional history exists Medical Devices Implanted Type Area Management Trainee Marketing Device Identifier Shelf Expiration Date Model / Serial / Lot Bsc [id number] Acuity X4 Spiral Short [id number] Implanted:09/2016 (Quantity not on file) Cardiac Lead [employer] 4674 ACUITY X4 SPIRAL SHORT / [id number] / Bs [id number] [facility] [id number] Implanted:09/2016 (Quantity not on file) Cardiac Lead [employer] 7741 INGEVITY MRI / [id number] / Bsc 7742 Ingevity Mri [id number] Implanted:09/2016 (Quantity not on file) Cardiac Lead [employer] 7742 INGEVITY MRI / [id number] / Cardiac Lead-10/14/2016 Implanted:10/2016 (Quantity not on file) Cardiac Lead Heart [employer] [id number] / / Cardiac Lead-10/14/2016 Implanted:10/2016 (Quantity not on file) Cardiac Lead Heart [employer] [id number] [id number] / / Cardiac Lead-10/14/2016 Implanted:10/2016 (Quantity not on file) Cardiac Lead Heart [employer] [id number] / / [facility] U128 Valitude [id number] Implanted:09/2016 (Quantity not on file) Pacemaker [employer] U128 VALITUDE / [id number] / Pacemaker-10/14 Implanted:10/2016 (Quantity not on file) Pacemaker Chest [employer] U128 VALITUDE EDITOR & CO FOUNDER-P [id number] / / Procedures Procedure Name Priority Date/Time Associated Diagnosis Comments BASIC METABOLIC PANEL, S/P Routine 07/31/2021 9:05 AM CHEMICAL SPRAYER HEMOGLOBIN A1C, B STAT 07/29/2021 2:5 4 PM CHEMICAL SPRAYER from Last 3 Months or Most Recently Relevant to Health Maintenance Results * (ABNORMAL) Basic Metabolic Panel (07/31/2021 9:05 AM CHEMICAL SPRAYER) Pathologist [facility] Potassium, S 4.8 3.6 - 5.2 mmol/L 07/31/2021 11:24 AM CHEMICAL SPRAYER DTL Sodium, S 135 135 - 145 mmol/L 07/31/2021 11:24 AM CHEMICAL SPRAYER DTL Chloride, S 101 98 - 107 mmol/L 07/31/2021 11:24 AM CHEMICAL SPRAYER DTL Bicarbonate, S 23 22 - 29 mmol/L 07/31/2021 11:24 AM CHEMICAL SPRAYER DTL Anion Gap 11 7 - 15 07/31/2021 11:24 AM CHEMICAL SPRAYER DTL BUN (Blood Urea Nitrogen), S 36(H) 8 - 24 mg/dL 07/31/2021 11:24 AM CHEMICAL SPRAYER DTL Creatinine 1.27 0.74 - 1.35 mg/dL 07/31/2021 11:24 AM CHEMICAL SPRAYER DTL eGFR-Non Black/ 52(L) >=60 mL/min/BSA 07/31/2021 11:24 AM CHEMICAL SPRAYER DTL Comment: ----ADDITIONAL INFORMATION---- Estimated GFR calculated using the 2009 CKD_EPI creatinine equation. eGFR-Black/Afri can Tanzanian 60 >=60 mL/min/BSA 07/31/2021 11:24 AM CHEMICAL SPRAYER DTL Comment: ----ADDITIONAL INFORMATION---- Estimated GFR calculated using the 2009 CKD_EPI creatinine equation. Calcium, Total, S 9.6 8.8 - 10.2 mg/dL 07/31/2021 11:24 AM CHEMICAL SPRAYER DTL Glucose, S 170(H) 70 - 140 mg/dL 07/31/2021 11:24 AM CHEMICAL SPRAYER DTL Blood (Blood, Venous) 07/31/2021 9:05 AM CHEMICAL SPRAYER 07/31/2021 9:21 AM CHEMICAL SPRAYER Amrik Shankar M.D. LAB BLOOD ADD-ON Final Result Performing Organization Address City/[facility]/ZIP Co de Phone Number [facility] [address] [place] [address], [facility] [address] [place] [address] * (ABNORMAL) Hemoglobin A1c (07/29/2021 2:54 PM CHEMICAL SPRAYER) Hemoglobin A1c, B 6.4(H) 4.0 - 5.6 % 07/29/2021 3:41 PM CHEMICAL SPRAYER DTL Comment: Hemoglobin A1c values of 5.7-6.4 percent indicate an increased risk for developing diabetes mellitus. In diabetic patients, HbA1c goals should be discussed with healthcare provider. Blood (Blood, Venous) 07/29/2021 2:54 PM CHEMICAL SPRAYER 07/29/2021 3:10 PM CHEMICAL SPRAYER Iliana Montesinos M.D. LAB BLOOD ADD-ON Final Resu lt Performing Organization Address City/[facility]/ZIP Co de Phone Number [facility] [address] [place] [address], [place] [facility] [address] [place] [address] from Last 3 Months or Most Recently Relevant to Health Maintenance Insurance [facility] Advance Directives For more information, please contact: [phone] * Full Code (Latest Code Status on File) Date Activated Date Inactivated Comments 07/29/2021 2:27 PM 07/31/2021 6:25 PM Question Answer Comments Full Code: Discussed Care Teams Pattern Mechanic Relationship Specialty Start Date End Date No Contact, Pcp PCP - General Family Medicine 03/25/21
--- OUTSIDE RECORDS SUMMARY | 2024-03-29 16:07 | XMS_ITS | Clinical Summary ---
Author Organization [facility] Address [place], [place] [address] Care Team Providers Care Staffing Account Manager Name Role Phone Votel, Basilio Roque MD Primary Care Provider + Steve Adams MD Unavailable Derrick Esqueda MD Unavailable Annette Montaño PharmD Unavailable [phone] Sarath Hodges MD Unavailable [phone] Allergies Active Allergy Reactions Criticality Noted Date Comments Adhesive Tape-Silicones Erythema 09/14/2016 Latex Rash 12/13/2021 Medications Medication Sig Dispensed Refills Start Date End Date Status amoxicillin (AMOXIL) 500 mg capsule 4 capsules 1 hour prior to dental work 0 1 Active vitamin e 400 unit capsule Take 400 units by mouth once daily. Active Accu-Chek Kae Plus test strp stripIndications: Diabetes mellitus without complication (HC) Use to test Blood glucose readings bid 200 Each 3 2 Active nitroglycerin (NITROSTAT) 0.4 mg sublingual tabletIndications :Coronary artery disease involving emmonak coronary artery of emmonak heart without angina pectoris Place 1 Tablet (0.4 mg) under the tongue every 5 minutes if needed for Chest Pain. Up to 3 doses and if not relieved, call 911 25 Tablet 3 3 Active atorvastatin (LIPITOR) 40 mg tabletIndications :Hyperlipidemia with target LDL less than 100 Take 1 Tablet (40 mg) by mouth at bedtime. 90 Tablet 3 4 Active metFORMIN (GLUCOPHAGE) 1,000 mg tabletIndications :Diabetes mellitus without complication (HC) Take 0.5 Tablets (500 mg) by mouth two times daily with meals. 4 Active medication order Keke ns:Health care maintenance Prevagen - Take 1 tablet by mouth once daily Vitamin C 1000 mg tablets - Take 1 tablet by mouth once daily 4 Active acetaminophen (TYLENOL) 325 mg tabletIndications :Neuropathy Take 2 Tablets (650 mg) by mouth two times daily. Max acetaminophen dose: 4000mg in 24 hrs. 4 Active semaglutide (Ozempic) 1 mg/dose (4 mg/3 mL) penIndications:Di abetes mellitus without complication (HC) INJECT 1MG SUBCUTANEOUS ONCE WEEKLY 3 mL 4 Active senna/docusate sodium (SENNA PLUS ORAL) Take by mouth. 2 tablets per day Active pregabalin (LYRICA) 50 mg capsuleIndication s:Neuropathy Daily at bedtime 90 Capsule 1 4 Active furosemide (LASIX) 40 mg tabletIndications :Status post transcatheter aortic valve replacement (TAVR) using bioprosthesis,Anand ma of foot TAKE 1 TABLET BY MOUTH ONCE DAILY NEEDED FOR WEIGHT GAIN OF 3LBS OVERNIGHT OR 5LBS IN A WEEK 90 Tablet 4 Active polyethylene glycoL (MIRALAX) 17 gram/scoop powderIndications :Constipation, acute Mix 1 scoop (17 g) in liquid then take by mouth once daily. 4 Active DULoxetine (CYMBALTA) 30 mg Delayed-release capsuleIndication s:Current mild episode of major depressive disorder without prior episode (HC) Take 1 Capsule (30 mg) by mouth once daily. 30 Capsule 5 4 Active clopidogreL (PLAVIX) 75 mg tabletIndications :Coronary artery disease involving emmonak coronary artery of emmonak heart, unspecified whether angina present Take 1 Tablet (75 mg) by mouth once daily. 90 Tablet 3 4 Active clopidogreL (PLAVIX) 75 mg tabletIndications :Coronary artery disease involving emmonak coronary artery of emmonak heart, unspecified whether angina present Take 1 Tablet (75 mg) by mouth once daily. 90 Tablet 3 3 10/01/20 24 Discontinued Active Problems Problem Noted Date Diagnosed Date Stage 3a chronic kidney disease 03/25/2024 Overview (03/25/2024): eGFR 53 (06/19/23); 57 (07/13/22); 56 (09/10/20) Current mild episode of emma r depressive disorder without prior episode 03/25/2024 Overview (03/25/2024): PHQ-9: 7 (02/29/24) Started on Duloxetine due to depression and peripheral neuropathy Mild cognitive impairment 08/22/2023 Acute on chronic systolic (congestive) heart duane lure 04/07/2023 Atherosclerosis of aorta 06/22/2022 Recurrent prostate cancer 06/22/2022 Overview (03/25/2024): Per radiation oncologist [facility] 01/2024: Standard of care in this case would be for treatment with radiation therapy however I do understand the patient's reservation as he does not have a clear trajectory of and aggressively growing recurrent prostate cancer at this time. I did review the patient's imaging of a PSMA PET that was performed prior to examination and patient has no independently discernible signs of recurrent cancer on this imaging. Unfortunately the emission volume of the bladder often times can make detecting small recurrences in the prostate fossa very difficult, and that is the case in this gentleman. BCR prostate cancer; s/p prostatectomy 2005, Gl 5+3, pT3b disease; PSA was initially detectable in 2010. PSA now increasing to 0.23 in last 1-2 years. SHARAD with small palpable nodule in the prostatic fossa. PSMA PET negative. 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 Received tissue plasminogen activator. Treated at [facility]. Symptoms resolved. 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 07/14/2020 Biventricular cardiac pacemaker in situ 07/14/19 21 Overview (07/14/2020): Nonischemic cardiomyopathy with LBBB and probable sinus node dysfunction, s/p Bi-V PPM (2016) IMELDA 04/24/2018 AHI-18 no REM sleep and only in a supine position 06/28/2018 LBBB (left bundle branch block) 10/19/2016 Ischemic cardiomyopathy 10/19/2016 Sensorineural hearing loss, asymmetrical 015 Adenomatous colon polyp 03/07/2013 Overview (08/16/2018): Colonoscopy 02/2013 polyp repeat in 5 years Colonoscopy 08/2018 diverticulosis, repeat in 5 years Neuropathy 07/06/2012 CYST, SEBACEOUS 08/30/2000 CAD (coronary artery disease) HTN (hypertension) Hyperlipidemia LDL goal < 100 History of prostate cancer Artificial cardiac pacemaker Resolved Problems Problem Noted Date Diagnosed Date Resolved Date Sick sinus syndrome 08/11/2021 06/22/19 23 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, without long-term current use of insulin 12/22/2020 03/25/2024 CHF (congestive heart failur e), NYHA class III, acute on chronic, systolic 08/05/2020 12/23/19 21 Severe aortic stenosis 07/14/202012/22 DIABETES 05/03/2002 03/25/2024 Encounters Date Type Department Care Team Description 03/29/2024 Nurse Triage [facility] [address] [place] [address] Basilio Conway MD Dizziness 03/26/2024 Nurse Triage [facility] [address] [place] [address] Basilio Conway MD Concerns; Medication Management 03/08/2024 Refill [facility] [address] [place] [address] Steve Adams MD Refill Request (Clopidogrel) 02/29/2024 1:40 PM CDT Office Visit [facility] [address] [place] [address] Basilio Conway MD Blood Pressure (Follow up); Depression 02/28/2024 2:00 PM CDT Pharmacist Medication Management [facility] [address] [place] [address] Annette Montaño PharmD Pharmacist Medication Management (CMR follow-up - in-clinic - medication questions) 02/28/2024 Travel 01/15/2024 1:30 PM CDT - 01/15/2024 11:59 PM CDT Hospital Encounter [facility] Radiation Oncology [facility] [address] [place] [address] Sarath Hodges MD 01/15/2024 1:15 PM CDT - 01/15/2024 1:29 PM CDT Hospital Encounter [facility] Oncology [facility] [address] [place] [address] Sarath Hodges MD 01/15/2024 Travel 01/03/2024 3:00 PM CDT Office Visit [facility] [address] [place] [address] Ela Kilpatrick PA Follow Up 01/03/2024 Travel 12/29/2023 Orders Only [facility] [address] [place] [address] Brandon Glass MD Device Check 12/29/2023 Procedure Only [facility] [address] [place] [address] Device Check ([employer] Pac... from Last 3 Months Immunizations Name Administration Dates Next Due AMB Influenza, IIV3 (Age >=3 years)(Flu Clinic Only) 04/05/2012 Amb Influenza, Inact (High-d ose) (Flu Clinic Only) 02/22/2017 COVID-19 VACCINE SPIKEVAX (M ODERNA 50MCG/0.5ML) 12YO+ PFS 04/25/2023 COVID-19 vaccine (Moderna 100mcg/0.5mL) PFMDV 01/10/2022 COVID-19 vaccine ([employer] NTech 30mcg/0.3mL) 12YO+ BIVALENT PF, MDV 05/18/2022 COVID-19 vaccine ([employer] NTech 30mcg/0.3mL) PF, MDV 08/25/2020,08/04/2020 Covid-19 Vaccine (Unspecified) 07/12/2021 Influenza A (H1N1), Inactiva stephanie (Age >=3 Years) 04/22/2009 Influenza Virus, Unspecified 01/10/2022, 06/13/2021,03/23/2010,2008,04/12/2007 Influenza, High-dose Inactivated 019,04/02/2018,02/22/2017,2014,03/06/2014 Influenza, IIV3 (Age 6-35 mos) 3,03/10/2011,03/23/2010,2008 Influenza, IIV3 (Age >=3 years) 06/12/19 14,04/05/2012,03/10/2011,2009,05/21/2008,03/27/2006,04/07/2005,1 ,05/06/2003,05/17/2002 Influenza, Inactivated AIIV4 (Age 65+ Years) Preserv Free 04/25/2023,04/01/2022,01/29/2022,2020 Influenza, Inactivated IIV3 (Age 65+ Years) Preserv Free 05/06/2020,03/23/2017 Pneumococcal Poly,23-Valent (Pneumovax) 12/08/2010,07/22/2003 Pneumococcal conj 13-Valent (Prevnar 13) 01/15/2015 Pneumococcal, Unspecified 01/10/2022,06/12/2021 Td (Age >=7 Years) 07/22/2003 Td, Preservative Free (age > = 7 Years) 01/15/2015 Tdap 07/22/2003 Zoster (Shingrix-RZV, recombinant) 08/13/2018, Zoster (Zostavax-ZVL, live) 12/08/2010 Family History Medical History Relation Name Comments Diabetes Father Stroke Father Relation Name Status Comments Father (Age 83) Mother (Age 95) Social History Tobacco Use Types Packs/Day Years Used Date Smoking Tobacco: Former Cigarettes 1 30 0 [birth year]12/1949 - 06/12/1979 Smokeless Tobacco: Never Tobacco Cessation:Counseling Given: Yes Alcohol Use Standard Drinks/Week Comments No 0 (1 standard drink = 0.6 oz pur e alcohol) PHQ-2 Answer Date Recorded PHQ-2 TOTAL SCORE 1 02/29/2024 Social Connections Answer Date Recorded Frequency of Communication with Friends and Fami ly 0 04/07/2023 Financial Resource Strain Answer Date R ecorded Difficulty of Paying Living Expenses 3 04/07/2023 Difficulty of Paying Living Expenses Not on file 04/07/2023 Food Insecurity Answer Date Recorded Worried About Running Out of Food in the Last Ye ar 1 04/07/2023 Transportation Needs Answer Date Record ed Lack of Transportation (Medical) 1 04/07/2023 Housing Stability Answer Date Recorded Unable to Pay for Housing in the Last Year 1 04/07/2023 Sex and Gender Information Value Date Recorded Sex Assigned at Male 03/21/2023 2:03 PM CDT Gender Identity Male 03/21/2023 2:03 PM CDT Sexual Orientation Straight 03/21/2023 2: 03 PM CDT Obstetrics History Last Filed Vital Signs Vital Sign Reading Time Taken Comments Blood Pressure 109/65 02/29/2024 1:51 PM CDT Pulse 73 02/29/2024 1:51 PM CDT Temperature 36.6 ??C (97.8 ??F) 01/15/2024 1:54 PM CD T Respiratory Rate 15 01/03/2024 2:46 PM CDT Oxygen Saturation 95% 02/29/2024 1:51 PM CDT Inhaled Oxygen Concentration - - Weight 84.9 kg (187 lb 3.2 oz) 02/29/2024 1:51 P M CDT Height 170.2 cm (5' 7) 02/29/2024 1:51 PM CDT Body Mass Index 29.32 02/29/2024 1:51 PM CDT Plan of Treatment Upcoming Encounters Date Type Department Care Team (Late st Contact Info) Description 04/09/2024 1:00 PM CDT Orders Only [facility] [address] [place] [address] Lab, [place] 04/09/2024 1:15 PM CDT Office Visit [facility] [address] [place] [address] Basilio Conway MD [address] [place] [address] 04/29/2024 1:20 PM CUTTING MACHINE OPERATOR HELPER Appointment [facility] [address] [place] [address] 05/06/2024 Procedure Only [facility] [address] [place] [phone] 05/13/2024 1:45 PM CUTTING MACHINE OPERATOR HELPER Office Visit [facility] [address] [place] [address] Caterina Dao, DO [address] [place] [address] 10/30/2024 11:00 AM CDT Pharmacist Medication Management [facility] [address] [place] [address] Annette Montaño, PharmD [address] [place] [address] Health Maintenance Due Date Last Done Comments RSV vaccine for adults or (1 - 1-dose 75+ series) 2014 COVID-19 vaccine series ( season) 2024 04/25/2023, 05/18/2022, 01/10/2022, Additional history exists Influenza for age 65+ 02/11/2024 04/25/2023 , 04/01/2022, 01/29/2022, Additional history exists Medicare Wellness for age 65+ 06/29/2024, 07/13/2022, 08/05/2020, Additional history exists Tetanus booster 01/15/2025 01/15/2015, 07/13, 07/22/2003 BMI (ht and wt on same day) for age 18+ 02/28/2025 02/29/2024, 01/03/2024, 12/20/2023, Additional history exists Depression screening for age 12+ 02/28/2025 02/29/2024, 08/16/2023, 08/15/2023, Additional history exists Tdap Completed 07/22/2003 Zoster (shingles) series for age 50+ Completed 08/13/2018, 04/02/2018, 12/08/2010 Pneumococcal series for age 65+ Completed 01/10/2022, 06/12/2021, 01/15/2015, Additional history exists Medical Devices Implanted Type Area Supervisor Wound Device Identifier Shelf Expiration Date Model / Serial / Lot Hot Iron Worker-P-10/14/2016 Implanted:10/14 (Quantity not on file) TOOTH CUTTER SPUR-P [employer] VALIT UDE/ U 128 / / Procedures Procedure Name Priority Date/Time Associated Diagnosis Comments HEMOGLOBIN A1C MONITORING (POCT) Routine 02/29/2024 2:46 PM CDT DIABETES PSA (TOTAL) (QUEST) Routine 02/29/2024 2 :43 PM CDT from Last 3 Months Results * (ABNORMAL) HEMOGLOBIN A1C MONITORING (POCT) (02/29/2024 2:46 PM CDT) POC HEMOGLOBIN A1C 6.2(H) <6.0 % OF TOTAL HGB [facility] Comment: Any point of care results exhibiting inconsistency with the patient's clinical status should be repeated using a different testing method. Blood BLOOD SPECIMEN / Unknown 02/29/2024 2:46 PM CDT 02/29/2024 2:46 PM CDT Basilio Conway MD CHEMISTRY [facility] [address] [place] [address], [facility] [address] [place] [address] * PSA (TOTAL) (QUEST) (02/29/2024 2:43 PM CDT) PSA, TOTAL 0.24 < OR = 4.00 ng/mL [email or web address] Comment: The total PSA value from this assay system is standardized against the WHO standard. The test result will be approximately 20% lower when compared to the equimolar-standardized total PSA (Codie Tariq). Comparison of serial PSA results should be interpreted with this fact in mind. This test was performed using the Siemens chemiluminescent method. Values obtained from different assay methods cannot be used interchangeably. PSA levels, regardless of value, should not be interpreted as absolute evidence of the presence or absence of disease. 02/29/2024 2:43 PM CDT 02/29/2024 2:45 PM CDT Basilio Conway MD SEND OUTS [employer] [facility] [address] [place] [address], [facility] [address] [place] [address] from Last 3 Months Advance Directives Documents on File Type Date Recorded Patient Flash Designer Expl anation Healthcare Directive 07/14/2020 021 * Full Code (Latest Code Status on File) Date Activated Date Inactivated Comments 08/17/2021 12:46 PM 08/17/2021 8:54 PM Question Answer Comments Code Status Discussion: Unable to Assess Preferences, Provider to review later * Full Code Date Activated Date Inactivated Comments 07/14/2020 8:25 AM 07/15/2020 2:49 PM Question Answer Comments Code Status Discussion: Discussed * Full Code Date Activated Date Inactivated Comments 06/17/2020 2:04 PM 06/17/2020 6:50 PM Question Answer Comments Code Status Discussion: Discussed * Full Code Date Activated Date Inactivated Comments 09/14/2016 7:06 AM 09/14/2016 5:25 PM Care Teams Staffing Account Manager Relationship Specialty Start Date End Date Votel, Basilio Roque MD [address] [place] [address] PCP - General Family Practice 09/30/10 Steve Adams MD [address] [place] [address] Consulting Physician Cardiovascular Disease 04/22/15 Derrick Esqueda MD [address] [address] Consulting Physician Cardiovascular Disease 06/23/20 Annette Montaño, MartiD [address] [place] [address] Pharmacist Medication Management Pharmacology 08/23/23 08/22/26 Sarath Hodges MD [address] [place] [address] Radiation Oncologist Radiation Oncology 01/15/24
[2024-03-29 16:12] LABS: RBC Urine 0-2 (0-2); WBC Urine 0-2 (0-5)
[2024-03-29 16:29] LABS: PCR FLU A Negative PCR FLU A (Negative); PCR FLU B Negative PCR FLU B (Negative); PCR RSV Negative PCR RSV (Negative); SARS PCR* Negative SARS-CoV-2 (Negative)
[2024-03-29 17:07] LABS: NT Pro B Type NatriureticPept* 330 pg/mL
[2024-03-29 18:11] LABS: Troponin, Point-of-Care* 0.02 ng/ml (0.01-0.04)
== END 2024-03-29 18:20 | disposition home or self-care (01) ==
PROVIDERS: Emergency Provider Family Medicine; PCP Family Medicine
DX: I50.9 Heart failure, unspecified (principal); R74.8 Abnormal levels of other serum enzymes
CPT/HCPCS: 36415; 71045; 80053; 81001; 83880; 84484; 85025; 87631; 93005; 99284; 99285

== ENCOUNTER 2025-04-07 00:43 | Outpatient (CLI) | payer MEDICARE, SELFPAY | END 2025-04-07 00:44 | disposition home or self-care (01) | LOC: AMB 04-09 09:28 | PROVIDERS: PCP Family Medicine; Visit Provider Family Medicine | DX: R04.0 Epistaxis (principal) | CPT/HCPCS: A0425; A0429 ==

== ENCOUNTER 2025-04-07 01:12 | Emergency (ER) | payer MEDICARE, SELFPAY ==
--- OUTSIDE RECORDS SUMMARY | 2025-04-07 01:15 | XMS_ITS | Data Portability ---
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 Plan of Treatment Reminders Order Date Submit Date Provider Last Modified By Organization Details Last Modified Time Details Appointments None recorded. Lab None recorded. Referral pelvic floor therapy referral - Please call patient to schedule Pelvic Floor Physical Therapy. Thank you 2022 023 [facility], [address] , [place], [address], 3 16:13:23 Procedures None recorded. Surgeries None recorded. Imaging PET-CT, skull base to mid-thigh scan - [facility]; Eyes to thighs; 2023 024 [email or web address], [address] [facility] [address] Cruz, [place], [address], 4 08:09:42 Medication Orders None recorded. Patient TargetsNo targets recorded. Patient Instructions Encounter Date Encounter Id Patient Instructions Last Modified By Organization Details Last Modified Time 12/08/2023 [id number] History of prostate cancer and rising PSA [...] will likely improve his urination at night. [email or web address] Not available 12/08/2023 18:11:33 Reason for Referral Pelvic Floor Therapy Referra l for Stress incontinence after prostatectomy Please call patient to schedule Pelvic Floor Physical Therapy. Thank you Referring Physician: Jude Lizarraga, Urology, Encounter Date: 10/26/2022 Results Created Date Observation Date Name Description [...] ON: [facility] Autumn Arteaga Elieser DATE: 024 INDICA TION: Subseq uent treatm [...] ly interp reted by: DR. FLACO BLANDON [address] [facility] - [address], [address], 01/04/2024 16:50:31 01/11/20 24 12/22/2023 PET-C T, skull base to mid-t high scan No observ ation record ed[facility] [address], [address], 01/11/2024 17:58:31 Result Notes Documentation Provider Name and Address Organization Details Recorded Time Pet-ct, Skull Base To Mid-thigh Scan : EXAM: PET CT PROSTATE PSMA SUBSEQUENT LOCATION: [facility] DATE: 12/22/2023 INDICATION: Subsequent treatment planning and [...] electronically interpreted by: DR. LEONIDAS JONES MD [address] [place] [address],[address], [address], [facility] 01/04/2024 16:50:31 Problems Name Problem SNOMED Code Status Onset Date Resolution Date Notes Provider Name and Address Organization Details Recorded Time Recurrent inguinal hernia 78691960780 08 Active 2014 K40.91 : Recurrent inguinal hernia Not Available [facility] 0 00:15:59 History of malignant neoplasm of prostate 973774143 Active 2015 Z85.46 : History of malignant neoplasm of prostate Not Available [facility] 0 00:15:59 Pain Active 2016 R10.30 : On examinati on - abdominal pain - hypogastr ium Not Available [facility] 0 00:15:59 Genuine stress incontine nce 03306082 Active 2016 N39.3 : Genuine stress incontine nce Not Available [facility] 0 00:15:59 Prostate specific antigen above reference range 485359206 Active 2023 CLEMENTE JONES MD [address] [place] [address],[address], [address] , [facility] 4 14:40:05 Stress incontine nce after prostatec edi 454532805 Active 2023 CLEMENTE JONES MD [address] [place] [address],[address], [address] , [facility] 4 14:40:05 Malignant neoplasm of prostate 658209854 Active 2023 CLEMENTE JONES MD [address] [place] [address],[facility] [address], [place], [address] , [facility] 4 17:27:21 Nocturia 761905928 Active 2023 CLEMENTE JONES MD [address] [place] [address],[facility] [address], [place], [address] , [facility] 4 17:29:24 Problem Notes None recorded. Procedures Surgical History Date Name Laterality Status Provider Name and Address Organization Details Recorded Time 024 COMPLEX VISIT completed CLEMENTE JONES MD [address] [place] [address],[facility] [address], [place], [address], [facility] 12/08/2023 14:41:51 024 Past Data Reviewed completed CLEMENTE JONES MD [address] [place] [address],[facility] [address], [place], [address], [facility] 12/08/2023 14:48:[address] colonography screening completed Not Available Health Note 08/23/2021 13:28:44 021 replacement of aortic valve completed Not Available Health Note 08/23/2021 13:28:44 017 Insert heart pm atrial completed Not Available Health Note 08/23/2021 13:28:44 016 Diagnostic colonoscopy completed Not Available Health Note 08/23/2021 13:28:44 016 Xcapsl ctrc rmvl cplx wo ecp completed Not Available Health Note 08/23/2021 13:28:44 015 Prp i/pedro init reduc >5 yr completed Not Available Health Note 08/23/2021 13:28:44 013 Colonoscopy thru stoma spx completed Not Available Health Note 08/23/2021 13:28:44 013 Cystourethroscopy completed Not Available Health Note 08/23/2021 13:28:44 009 Cystourethroscopy completed Not Available Health Note 08/23/2021 13:28:44 006 Laps surg [id number] rpbic rad completed Not Available Health Note 08/23/2021 13:28:44 006 Biopsy of prostate completed Not Available Health Note 08/23/2021 13:28:44 Anal/urinary muscle study completed Not Available Health Note 08/23/2021 13:28:[address] gastr adj device completed Not Available Health Note 08/23/2021 13:28:44 Excision epiphyseal bar completed Not Available Health Note 08/23/2021 13:28:44 Laparoscopic cholecystectomy completed Not Available Health Note 08/23/2021 13:28:44 Hernia repair w/mesh completed Not Available Health Note 08/23/2021 13:28:44 Removal of prostate completed Not Available Health Note 08/23/2021 13:28:44 Prostatectomy (turp) completed Not Available Health Note 08/23/2021 13:28:44 Imaging Results None recorded. Procedure Notes None recorded. Medical Equipment None Reported. Allergies Allergen ID Allergen Name Allergen Category Reaction Reaction Severity Criticality Documentation Date Start Date Code Code System Note Provider Name and Address Organization Details Recorded Time 602436 latex environme nt,medica tion Not available Not available Not available 08/23/2021 31920 91 RxNorm Stella Butcher [facility] 13:48:38 Medications Name Sig Start [...] Not Avail able Not Available multivita min Don t know 1/day 12/07 completed Not Available [...] 11/29 stop taking until pcp recommen ds lexienijose cruz g Not Available Not Available Not Available [...] completed Not Available Not Available Not Available [facility] Memory Support active prevagen Not Available Not Available Not Available aspirin 325 mg capsule Don t know 1/day 10/26 completed HN: Patient reports no longer taking Not Available Not Available Not Available Vitals Date Recorded Body height Body mass index (BMI) Body weight Provider Name and Address Organization Details Last Updated DateTime 08/06/2020 175.26 cm 28.8 kg/m2 40382.51 g Stella Butcher [facility] 08/06/2020 12:08:30 Date Recorded Body mass index (BMI) Body height Body weight Provider Name and Address Organization Details Last Updated DateTime 08/23/2021 27.1 kg/m2 170.18 cm 79441.5733 962445 g Not Available Health Note 08/23/2021 13:33:08 Date Recorded Body height Body mass index (BMI) Body weight Provider Name and Address Organization Details Last Updated DateTime 10/26/2022 170.18 cm 26.6 kg/m2 23479.7 g Monica Ruiz [facility] 10/26/2022 15:03:51 Date Recorded Body height Body mass index (BMI) Body weight Provider Name and Address Organization Details Last Updated DateTime 12/08/2023 170.18 cm 26.6 kg/m2 93946.7 g Sudha Sutton [facility] 12/08/2023 14:37:15 Social History Question Answer Notes LastModified by POI Details LastModified Time Tobacco Smoking Status Former Smoker Not Available Health Note 10/22/2022 15:27:45 What Is Your Level Of Caffeine Consumption? Occasional [email or web address] Information not available 10/22/2022 How Much Tobacco Do You Chew? None [email or web address] Information not available 10/22/2022 When Did You Quit Smoking? 15+yearssinbernadette gregorio Information not available 12/08/2023 Race White Information n ot available 11/21/2019 Ethnicity Not /Latin o Information not available 08/06/2020 Preferred Language Finnish Information not available 08/06/2020 Recreational Drug Use No [email or web address] Information not available 10/26/2022 Marital Status Informati on not available 11/21/2019 What Was The Date Of Your Most Recent Tobacco Screening? 12/08/2023 Information not available 12/08/2023 What Is Your Relationship Status? [email or web address] Information not available 10/22/2022 Are You Sexually Active? No [email or web address] Information not available 10/22/2022 How Much Tobacco Do You Smoke? 1 PPD Information not available 08/06/2020 Has Tobacco Cessation Counseling Been Provided? No [email or web address] Information not available 10/26/2022 How Many Years Have You Smoked Tobacco? 25 [email or web address] Information not available 10/22/2022 Sex: Male Functional Status Question Answer Note LastModified by CircleCIizDynamighty ion Details LastModified Time Do you use any illicit or recreational drugs? No [email or web address] Information not available 10/22/2022 Do you or have you ever used any other forms of tobacco or nicotine? No [email or web address] Information not available 10/26/2022 What is your level of alcohol consumption? None Information not available 12/08/2023 Do you or have you ever used smokeless tobacco? Never used smokeless tobacco [email or web address] Information not available 10/22/2022 Are you currently employed? No [email or web address] Information not available 10/26/2022 Do you or have you ever used e-cigarettes or vape? Never used electronic cigarettes [email or web address] Information not available 10/22/2022 Mental Status None recorded. Family History Relationship Description Onset Age of this Age Resolved Age Notes LastModified by Organization Details LastModified Time Unspecified Relation Family history of malignant neoplasm of prostate 45 [email or web address] Not available 2021 13:28:43 Father Family history of malignant neoplasm [email or web address] Not available 2021 13:28:43 Notes:Depression:Runs in Fam narinder Diabetes:Runs in Family Cancer, lung:Runs in Family Medical History Condition Response Sexually Transmitted Infection N Diabetes Y Bleeding Disorder Y High Blood Pressure N Kidney Stones N Cancer Y Lung Disease N Depression N High Cholesterol Y GERD/Acid Reflux N Heart Disease Y Immunizations Vaccine Type Date Status Note Provider Nam e and Address Organization Details Recorded Time SARS-COV-2 (COVID-19) vaccine, UNSPECIFIED 2 completed Magdalena Bullock [facility] 12/08/2023 14:30:21 influenza, unspecified formulation 2 completed Magdalena Bullock [facility] 12/08/2023 14:30:22 pneumococcal, unspecified formulation 2 completed Monica Ruiz [facility] 10/26/2022 15:03:54 zoster recombinant 8 completed Stella Butcher [facility] 08/23/2021 13:48:19 Influenza, high-dose, trivalent, PF 7 completed Stella Butcher [facility] 08/23/2021 13:48:20 COVID-19, mRNA, LNP-S, PF, 30 mcg/0.3 mL dose 1 completed Stella Butcher [facility] 08/23/2021 13:48:20 Influenza, split virus, trivalent, preservative 5 completed Stella Baranick null, [facility] 08/23/2021 13:48:20 Influenza, split virus, trivalent, preservative 4 completed Stella Baranick null, [facility] 08/23/2021 13:48:20 Influenza, split virus, trivalent, preservative 2 completed Stella Baranick null, [facility] 08/23/2021 13:48:20 Influenza, split virus, trivalent, preservative 2 completed Stella Baranick null, [facility] 08/23/2021 13:48:20 Influenza, split virus, trivalent, preservative 8 completed Stella Baranick null, [facility] 08/23/2021 13:48:20 Influenza, high-dose, trivalent, PF 4 completed Stella Baranick null, [facility] 08/23/2021 13:48:20 Influenza, split virus, trivalent, PF 0 completed Stella Samsonanick null, [facility] 08/23/2021 13:48:20 Influenza, adjuvanted, trivalent, PF 7 completed Stella Baranick null, [facility] 08/23/2021 13:48:20 Influenza, high-dose, trivalent, PF 8 completed Stella Samsonanick null, [facility] 08/23/2021 13:48:20 zoster live 1 completed Stella Samsonanick null, [facility] 08/23/2021 13:48:20 COVID-19, mRNA, LNP-S, PF, 30 mcg/0.3 mL dose 1 completed Stella Baranick null, [facility] 08/23/2021 13:48:20 Td (adult), 5 Lf tetanus toxoid, preservative free, adsorbed 5 completed Stella Baranick null, [facility] 08/23/2021 13:48:20 Td (adult), 2 Lf tetanus toxoid, preservative free, adsorbed 4 completed Stella Baranick null, [facility] 08/23/2021 13:48:20 influenza, unspecified formulation 7 completed Stella Baranick null, [facility] 08/23/2021 13:48:20 COVID-19, mRNA, LNP-S, PF, 30 mcg/0.3 mL dose 1 completed Stella Baranick null, [facility] 08/23/2021 13:48:20 Influenza, split virus, trivalent, preservative 6 completed Stella Baranick null, [facility] 08/23/2021 13:48:20 Influenza, split virus, trivalent, PF 1 completed Stella Baranick null, [facility] 08/23/2021 13:48:20 Influenza, split virus, trivalent, preservative 3 completed Stella Baranick null, [facility] 08/23/2021 13:48:20 Influenza, split virus, trivalent, PF 9 completed Stella Baranick null, [facility] 08/23/2021 13:48:20 Influenza, adjuvanted, trivalent, PF 0 completed Stella Baranick [facility], [facility] 08/23/2021 13:48:20 Influenza, split virus, trivalent, PF 3 completed Stella Baranick null, [facility] 08/23/2021 13:48:20 Influenza, high-dose, trivalent, PF 9 completed Stella Baranick null, [facility] 08/23/2021 13:48:20 Novel [id number] 9 completed Stella Baranick null, [facility] 08/23/2021 13:48:20 Influenza, adjuvanted, quadrivalent, PF 1 completed Stella Baranick null, [facility] 08/23/2021 13:48:20 zoster recombinant 9 completed Stella Baranick null, [facility] 08/23/2021 13:48:20 influenza, unspecified formulation 2 completed Magdalena Bullock null, [facility] 12/08/2023 14:30:22 pneumococcal, unspecified formulation 2 completed Monica Ruiz null, [facility] 10/26/2022 15:03:54 SARS-COV-2 (COVID-19) vaccine, UNSPECIFIED 2 completed Magdalena Bullock null, [facility] 12/08/2023 14:30:21 Pneumococcal conjugate PCV 13 5 completed Stella Dvaiesnorberto null, [facility] 08/23/2021 13:48:20 pneumococcal polysaccharide PPV23 4 completed Chelsea Shaun null, [facility] 01/28/2021 11:35:40 pneumococcal polysaccharide PPV23 1 completed Stella Daivesnorberto [facility] 08/23/2021 13:48:20 Past Encounters Encounter ID Performer Location Encounter Start Date Encounter Closed Date Diagnosis/Indication Diagnosis SNOMED-CT Code Diagnosis ICD10 Code Diagnosis IMO Codes Diagnosis Note [id number] Jude Lizarraga MD [address] [address] 08/06/2020 11:54:54 08/06/2020 12:50:10 History of malignant neoplasm of prostate 187009783 Z85.46 Dr. Conway's notes reviewed. Patient did have a heart valve placed 1 year ago..PSA is 0.09. Exam today is unremarkab le. 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 No interventi on Primary er ectile dysfunction 478574425 N52.9 Both him and his have no interested bringing this part of his life back [id number] [facility] [address] 08/23/2021 13:33:04 08/23/2021 14:16:26 Prostate specific antigen above reference range 262978586 R97.20 PSA remains detectable but stable. History of malignant neoplasm of prostate 936437122 Z85.46 Dr. Conway's notes reviewed. No evidence of recurrent disease. Exam unremarkab le. Recheck in 1 year Stress inc ontinence after prostatectomy 857058893 N39.3 Minor stress incontinen ce. No interventi on at this timeOf note, 2 weeks ago patient did have a stroke. Currently doing well [id number] Jude Lizarraga MD [facility] [address] [address] 10/26/2022 14:56:19 10/26/2022 15:43:29 Prostate specific antigen above reference range 701776995 R97.20 PSA was initially detectable in 2010. In 2012 number was 0.09. Recent value was 0.1. Continue to follow annually History of malignant neoplasm of prostate 362337227 Z85.46 Exam today is unremarkab le. PSA is stable. Recheck in 1 year Stress inc ontinence after prostatectomy 668074624 N39.3 She is not using 1-2 pads a day. Discussed pelvic floor physical therapyPat ient did have a stroke last year [id number] CLEMENTE JONES MD [facility] [address] [address] 12/08/2023 14:12:57 12/11/2023 09:08:50 History of malignant neoplasm of prostate 976184041 Z85.46 s/p prostatect oumar 2006, Gl 5+3, pT3b disease Prostate s pecific antigen above reference range 410184161 R97.20 PSA was initially detectable in 2010.PSA now increasing to 0.23 in last 1-2 years.SHARAD with small palpable nodule in the prostatic fossaDiscu ssed possible causes of PSA rise including my concern for biochemica l recurrent prostate cancer.Reji l pursue PSMA PET scan to assess for recurrent disease, and they prefer imaging within the [facility] if possible Stress inc ontinence after prostatectomy 382182892 N39.3 He is using 1-2 pads a day.Previo usly referred to pelvic floor physical therapy. Now with cognitive deficits he is not rememberin g to do exercises as often.Of note, patient did have a stroke in 2021. Malignant neoplasm of prostate 217892719 C61 PSA was initially detectable in 2010.PSA now increasing to 0.23 in last 1-2 years.SHARAD with small palpable nodule in the prostatic fossaDiscu ssed possible causes of PSA rise including my concern for yolanda l recurrent prostate cancer.Reji coughlin pursue PSMA PET scan to assess for recurrent disease, and they prefer imaging within the [facility] if possible Nocturia 940354804 R35.1 His most bothersome urinary symptom is nocturia. He is just recently starting treatment for his obstructiv e sleep apnea with a CPAP and use has been inconsiste nt thus far. I advised him to continue with this treatment as this will likely improve his nocturia.. We did also discuss behavioral changes by decreasing fluid in the evenings and elevating his lower extremitie s to decrease lower extremity edema in late afternoons . We can consider other treatment options in the future if need be. Health Concerns Section Related Observation LastModified by Organization Detai ls LastModified Time None Recorded Concern Status LastModified by Organization Details LastModified Time None Recorded Advance Directives Directive None Recorded Payers Insurance Date Sequence Insurance Name Policy Number Policy Benitez Covered Member ID Benitez Member ID Guarantor Name 12/08/2023 2 [place]ARE [place]: [employer] Sumit Rodriguezjaison [id number] Sumit Rodriguezjaison 12/08/2023 1 [place] [id number] Sumit Rodriguezjaison [id number] Sumit Rodriguezjaison 08/23/2021 1 *SELF PAY* Madie Rodriguezjaison 12/12/2023 1 [facility] ([place]PL[place]) [id number] Sumit Rodriguezjaison [id number] Sumit Rodriguezjaison Notes Date Note Type Note Provider Name and Address Organization Details Recorded Time 08/06/2020 text/html Patient is 13 year(s) status post a robotic radical prostatectomy. PSA: 0.09 Valery Score: 5+3 Stage: T3b Margin [...] 11 Continence Function Questionnaire 1. Urinary Control: . 2. Frequency of incontinence: . 3. Problem with urinary function: . 4.Pads used per day: No more than 1 pad (2). Total score: Quality of Life QOL due to urinary symptoms: Pleased Jude Lizarraga MD [address] [place] [address],[address], [address], [facility] 08/06/2020 12:29:44 08/23/2021 text/html Patient [id number](s)status post a robotic radical prostatectomy. PSA: 0.08, last year 0.09 Chester Score: 5+3 Stage: T3b Margin status: negative Percent involvement: 6% AUA / IPSS1. Sensation of not emptying bladder completely: less [...] not at all (0). 7. Experiences nocturia: 1Calculated AUA /IPSS Score: 10 Continence Function Questionnaire1. Urinary Control: . 2. Frequency of incontinence: . 3. Problem with urinary function: . 4.Pads used per day: No more than 1 pad (2).Total score: Quality of LifeQOL due to urinary symptoms: Pleased Jude Lizarraga MD [address] [place] [address],[address], [address], [facility] 08/23/2021 14:00:05 10/26/2022 text/html Patient underwent a robotic radical prostatectomy on 03/29/2006. PSA: 0.1, last year 0.09 Chester Score: 5+3 Stage: T3b Margin status: negative Percent involvement: 6% AUA / IPSS1. Sensation of not emptying bladder completely: less [...] not at all (0). 7. Experiences nocturia: 1Calculated AUA /IPSS Score: 10 Continence Function Questionnaire1. Urinary Control: . 2. Frequency of incontinence: . 3. Problem with urinary function: . 4.Pads used per day: No more than 1 pad (2).Total score: Quality of LifeQOL due to urinary symptoms: Pleased Jude Lizarraga MD [address] [place] [address],[address], [address], [facility] 10/26/2022 15:12:31 12/08/2023 text/html Patient underwent a robotic radical prostatectomy on 03/29/2006.Current PSA: 0.23Last PSA: 0.10Gleason Score: 5+3Stage: N2sSmwcjo status: negativePercent involvement: 6% SRM8371: 0.935486: 0.210482: 0.615320: 0.0922: 0.08January 2023: 0.21June 2023: 0.23 Denies hematuria.Nocturia up to x5He wears 1-3 depends in a give day. He is joined by his daughter today provides majority the history. She reports he has had some neurocognitive decline. IPSS10/26/22: 10 (QoL: pleased) CLEMENTE JONES MD [address] [place] [address],[address], [place], [address], [facility] 12/29/2023 10:28:11
--- OUTSIDE RECORDS SUMMARY | 2025-04-07 01:15 | XMS_ITS | Clinical Summary ---
Author Organization [employer] [facility] Address [address] [place] [address] Care Team Providers Care Statement Processor Name Role Phone Votel, Basilio Rouqe MD Primary Care Provider + Steve Adams MD Unavailable [phone] Derrick Esqueda MD Unavailable [phone] Annette Montaño PharmD Unavailable Sarath Hodges MD Unavailable Allergies Active Allergy Reactions Criticality Noted Date Comments Adhesive Tape-Silicones Erythema 09/14/2016 Latex Rash 12/13/2021 Medications amoxicillin (AMOXIL) 500 mg capsule 4 capsules 1 hour prior to dental work 0 07/02/19 21 Active vitamin e 400 unit capsule Take 400 units by mouth once daily. Active Accu-Chek Kae Plus test strp stripIndications: Diabetes mellitus without complication (HC) Use to test Blood glucose readings bid 200 Each 3 08/12/19 22 Active acetaminophen (TYLENOL) 325 mg tabletIndications :Neuropathy Take 2 Tablets (650 mg) by mouth two times daily. Max acetaminophen dose: 4000mg in 24 hrs. 08/23/19 24 Active senna/docusate sodium (SENNA PLUS ORAL) Take by mouth. 2 tablets per day Active furosemide (LASIX) 40 mg tabletIndications :Status post transcatheter aortic valve replacement (TAVR) using bioprosthesis,Anand gomez of foot TAKE 1 TABLET BY MOUTH ONCE DAILY NEEDED FOR WEIGHT GAIN OF 3LBS OVERNIGHT OR 5LBS IN A WEEK 90 Tablet 12/27/19 24 Active donepeziL (ARICEPT) 10 mg tabletIndications :Moderate cognitive impairment Take 1 Tablet (10 mg) by mouth at bedtime. 90 Tablet 3 06/10/20 24 Active Foam Bandage (Mepilex Border Flex Lite) 3 X 3 bndgIndications:O pen wound Apply topically to affected area(s). 4 Each 1 07/02/19 25 Active clopidogreL (PLAVIX) 75 mg tabletIndications :Coronary artery disease involving gambell coronary artery of gambell heart, unspecified whether angina present Take 1 Tablet (75 mg) by mouth once daily. 90 Tablet 3 01/17/20 25 Active nitroglycerin 0.4 mg sublingual tabletIndications :Coronary artery disease involving gambell coronary artery of gambell heart without angina pectoris Place 1 Tablet (0.4 mg) under the tongue every 5 minutes if needed for Chest Pain. Up to 3 doses and if not relieved, call 911 25 Tablet 3 01/17/20 25 Active cholecalciferol (Vitamin D3) (Vitamin D-3) 5,000 unit tab tablet Take by mouth once daily. Active semaglutide (Ozempic) 2 mg/3 mL subcutaneous penIndications:Di abetes mellitus without complication (HC) Inject 0.5 mg subcutaneous once weekly. 10/30/19 25 Active clotrimazole 1 % creamIndications: Tinea pedis of both feet Apply topically to affected area(s) two times daily. 60 g 2 11/01/19 25 Active atorvastatin (Lipitor) 40 mg tabletIndications :ASCVD (arteriosclerotic cardiovascular disease) Take 1 Tablet (40 mg) by mouth once daily. 90 Tablet 3 11/29/19 25 Active OneTouch Delica Plus Lancet 33 gauge misc 1 use by Hand Bulb Nebulizer route two times daily. 09/26/19 25 Active pregabalin (LYRICA) 50 mg capsuleIndication s:Neuropathy Increase to 1 tab twice daily for a week, then 2 tabs at bedtime and 1 tab every am. 270 Capsule 03/13/20 25 Active pregabalin (LYRICA) 50 mg capsuleIndication s:Neuropathy Take 1 Capsule (50 mg) by mouth at bedtime. 90 Capsule 12/24/19 25 025 Discontin ued(*Medi cation adjustmen t) Active Problems Problem Noted Date Diagnosed Date [...] cancer 06/22/2022 Overview (03/25/2024): Per radiation oncologist [facility] 01/2024: Standard of care in this [...] 05. Received tissue plasminogen activator. Treated at [place]. Symptoms resolved. Aortic valve replaced 08/11/2021 Hypertensive [...] Encounters Date Type Department Care Team Description 03/20/2025 2:05 PM CDT Office Visit [facility] [address] [place] [address] Basilio Conway MD Concerns (Dry cracked skin on crack backside); Lab (Wants labs); Immunization/Injectio n 03/20/2025 Travel 01/17/2025 Procedure Only [facility] [address] [place] [address] Device Check (Remote [employer] Pac... 01/16/2025 3:30 PM CDT Office Visit [facility] [address] [place] [address] Steve Adams MD Follow Up (6 month follow up appointment. ); Concerns (Patient denies increased Shortness of Breath, Chest Pain, and Swelling. Patient has had some Dizziness and unsteadiness when on his feet. Patient has noticed more Fatigue. His is sick so there has been more stress lately. Patient had a nosebleed this morning and has been having sinus issues. ) 01/16/2025 Travel 01/08/2025 11:00 AM CDT Orders Only [facility] [address] [place] [address] Lab, [facility] 01/08/2025 Travel from Last 3 Months Immunizations Immunization Administration Dates Next Due AMB Influenza, IIV3 (Age >=3 years)(Flu Clinic Only) 04/05/2012 Amb Influenza, Inact (High-d ose) (Flu Clinic Only) 02/22/2017 COVID-19 VACCINE SPIKEVAX (M ODERNA 50MCG/0.5ML) 12YO+ PFS 04/09/2024,04/25/2023 COVID-19 vaccine (Moderna 100mcg/0.5mL) PF, MDV 01/10/2022 COVID-19 vaccine (Pfizer-Bio NTech 30mcg/0.3mL) 12YO+ BIVALENT PF, MDV 05/18/2022 COVID-19 vaccine (Pfizer-Bio NTech 30mcg/0.3mL) PF, MDV 08/25/2020,08/04/2020 Covid-19 Vaccine (Unspecified) 07/12/2021 Influenza A (H1N1), Inactiva stephanie (Age >=3 Years) 04/22/2009 Influenza Virus, Unspecified 01/10/2022, 06/13/2021,03/23/2010,04/22,04/12/2007 Influenza, High-dose Inactivated 019,04/02/2018,02/22/2017,04/01,03/06/2014 Influenza, IIV3 (Age 6-35 mos) 3,03/10/2011,03/23/2010,04/22 Influenza, IIV3 (Age >=3 years) 06/12/19 14,04/05/2012,03/10/2011,03/23,05/21/2008,03/27/2006,04/07/2005 ,03/22/2004,05/06/2003,05/17/2002 Influenza, Inactivated AIIV4 (Age 65+ Years) Preserv Free 04/25/2023,04/01/2022,01/29/2022,02/18 Influenza, Inactivated IIV3 (Age 65+ Years) Preserv Free 03/20/2025,04/09/2024,05/06/2020,03/23 Pneumococcal Poly,23-Valent (Pneumovax) 12/08/2010,07/22/2003 Pneumococcal conj 13-Valent (Prevnar 13) 01/15/2015 Pneumococcal, Unspecified 01/10/2022,06/12/2021 RSV, Recombinant ADJ Reconst ituted (Arexvy 120MCG/0.5mL) 10/29/2024 Td (Age >=7 Years) 07/22/2003 Td, Preservative Free (age >= 7 Years) 5 Tdap 07/22/2003 Zoster (Shingrix-RZV, recombinant) 08/13/2018, Zoster [...] PHQ-2 Answer Date Recorded PHQ-2 TOTAL SCORE 0 10/29/2024 Social Connections Answer Date Recorded Do you often feel lonely or isolated from those around you? 0 04/09/2024 Alcohol Use Answer Date Recorded How often do you have a drink containing alcohol ? 0 03/20/2025 Average Number of Drinks Not on file 025 Frequency of Binge Drinking Not on file 02/2025 Financial Resource Strain Answer Date R ecorded Difficulty of Paying Living Expenses 3 04/09/2024 Difficulty of Paying Living Expenses Not on file 04/09/2024 Food Insecurity Answer Date Recorded Do you worry your food will run out before you are able to buy more? 1 04/09/2024 Transportation Needs Answer Date Record ed Does lack of transportation keep you from medica l appointments? 1 04/09/2024 Does lack of transportation keep you from work, meetings or getting things that you need? 1 04/09/2024 Housing Stability Answer Date Recorded What is your housing situation today? 1 04/09/2024 Utilities Answer Date Recorded Do you have trouble paying f or utilities (for example, heat, electricity, water, phone)? 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 file Not on file Not on file Obstetrics History Last Filed Vital Signs Vital Sign Reading Time Taken Comments Blood Pressure 107/62 03/20/2025 2:02 PM CDT Pulse 60 03/20/2025 2:02 PM CDT Temperature 36.7 C (98.1 F) 10/29/2024 2:13 PM CDT Respiratory Rate 16 01/16/2025 3:33 PM CDT Oxygen Saturation 99% 03/20/2025 2:02 PM CDT Inhaled Oxygen Concentration - - Weight 78.2 kg (172 lb 6.4 oz) 03/20/2025 2:02 P M CDT Height 170.2 cm (5' 7) 03/20/2025 2:02 PM CDT Body Mass Index 27 03/20/2025 2:02 PM CDT Plan of Treatment Upcoming Encounters Date Type Department Care Team (Late st Contact Info) Description 05/16/2025 Procedure Only [facility] [address] [place] [address] Health Maintenance Due Date Last Done Comments Tetanus booster 01/15/2025 01/15/2015, 07/13, 07/22/2003 Depression screening for age 12+ 10/29/2025 10/29/2024, 02/29/2024, 08/16/2023, Additional history exists Medicare Wellness for age 65+ 10/30/2025 10/29/2024, 06/29/2023, 07/13/2022, Additional history exists BMI (ht and wt on same day) for age 18+ 03/20/2026 03/20/2025, 01/16/2025, 07/02/2024, Additional history exists Zoster (shingles) series for age 50+ Completed 08/13/2018, 04/02/2018, 12/08/2010 Pneumococcal series for age 50+ Completed 01/10/2022, 06/12/2021, 01/15/2015, Additional history exists RSV vaccine for adults or Completed 10/29/2024 Influenza Vaccine Completed 03/20/2025, , 04/25/2023, Additional history exists Hepatitis B series for 19+ Aged Out N o longer eligible based on patient's age to complete this topic Medical Devices Implanted Type Area Glue Bone Drier Device Identifier Shelf Expiration Date Model / Serial / Lot Management Lecturer-P-10/14/2016 Implanted:10/14 (Quantity not on file) BREAKDOWN WORKER-P [employer] VALIT UDE/ U 128 / / Procedures Procedure Name Priority Date/Time Associated Diagnosis Comments CBC WITH AUTO DIFFERENTIAL Routine 03/20/2025 2:13 PM CDT Type 2 diabetes mellitus with diabetic neuropathy, without long-term current use of insulin (HC) ALT (SGPT) Routine 03/20/2025 2:13 PM CDT Type 2 diabetes mellitus with diabetic neuropathy, without long-term current use of insulin (HC) CBC WITH AUTO DIFFERENTIAL Routine 03/20/2025 2:13 PM CDT Type 2 diabetes mellitus with diabetic neuropathy, without long-term current use of insulin (HC) URINE ALBUMIN TO CREATININE RATIO, RANDOM Routine 03/20/2025 2:13 PM CDT Type 2 diabetes mellitus with diabetic neuropathy, without long-term current use of insulin (HC) HEMOGLOBIN A1C MONITORING (POCT) Routine 03/20/2025 2:13 PM CDT Type 2 diabetes mellitus with diabetic neuropathy, without long-term current use of insulin (HC) BASIC METABOLIC PANEL Routine 03/20/2025 2:13 PM CDT Need for prophylactic vaccination and inoculation against influenza LIPID PANEL W REFLEX MEASURED LDL Routine 03/20/2025 2:13 PM CDT Hyperlipidemia LDL goal < 100 PSA TOTAL Routine 03/20/2025 2:13 PM CDT Prostate cancer (HC) LIPID PANEL W REFLEX MEASURED LDL Routine 01/08/2025 11:05 AM CDT ASCVD (arteriosclerotic cardiovascular disease) from Last 3 Months Results * (ABNORMAL) CBC WITH AUTO DIFFERENTIAL (03/20/2025 2:13 PM CDT) Pathologist [facility] WHITE BLOOD CELL COUNT 6.5 3.8 - 10.8 Thousand/ uL 03/21/2025 4:08 AM CDT [facility] RED BLOOD CELL COUNT 4.34 4.20 - 5.80 Million/u L 03/21/2025 4:08 AM CDT [facility] HEMOGLOBIN 11.3(L) 13.2 - 17.1 g/dL 03/21/2025 4:08 AM CDT [facility] HEMATOCRIT 35.9(L) 38.5 - 50.0 % 03/21/2025 4:08 AM CDT [facility] MCV 82.7 80.0 - 100.0 fL 03/21/2025 4:08 AM CDT [facility] MCH 26.0(L) 27.0 - 33.0 pg 03/21/2025 4:08 AM CDT [facility] MCHC 31.5(L) 32.0 - 36.0 g/dL 03/21/2025 4:08 AM CDT [facility] Comment: For adults, a slight decrease in the calculated MCHC value (in the range of 30 to 32 g/dL) is most likely not clinically significant; however, it should be interpreted with caution in correlation with other red cell parameters and the patient's clinical condition. RDW 15.3(H) 11.0 - 15.0 % 03/21/2025 4:08 AM CDT [facility] PLATELET COUNT 168 140 - 400 Thousand/ uL 03/21/2025 4:08 AM CDT [facility] MPV 10.4 7.5 - 12.5 fL 03/21/2025 4:08 AM CDT [facility] NEUTROPHILS 69.5 % 03/21/2025 4:08 AM CDT [facility] LYMPHOCYTES 17.6 % 03/21/2025 4:08 AM CDT [facility] MONOCYTES 6.6 % 03/21/2025 4:08 AM CDT [facility] EOSINOPHILS 5.1 % 03/21/2025 4:08 AM CDT [facility] BASOPHILS 1.2 % 03/21/2025 4:08 AM CDT [facility] ABSOLUTE NEUTROPHILS 4518 1500 - 7800 cells/uL 03/21/2025 4:08 AM CDT [facility] ABSOLUTE LYMPHOCYTES 1144 850 - 3900 cells/uL 03/21/2025 4:08 AM CDT [facility] ABSOLUTE MONOCYTES 429 200 - 950 cells/uL 03/21/2025 4:08 AM CDT [facility] ABSOLUTE EOSINOPHILS 332 15 - 500 cells/uL 03/21/2025 4:08 AM CDT [facility] ABSOLUTE BASOPHILS 78 0 - 200 cells/uL 03/21/2025 4:08 AM CDT [facility] Blood BLOOD SPECIMEN / Unknown [facility] / Unknown 03/20/2025 2:13 PM CDT 03/20/2025 2:13 PM CDT us Basilio Conway MD HEMATOLOGY Final Re sult [facility] [address] [place] [address], * LIPID PANEL W REFLEX MEASURED LDL (03/20/2025 2:13 PM CDT) Only the most recent of2 resultswithin the time period is included. [facility] Signature CHOLESTEROL, TOTAL 121 <200 mg/dL 03/21/2025 5:45 AM CDT [facility] TRIGLYCERIDES 101 <150 mg/dL 03/21/2025 5:45 AM CDT [facility] HDL CHOLESTEROL 49 > OR = 40 mg/dL 03/21/2025 5:45 AM CDT [facility] NON HDL CHOLESTEROL 72 <130 mg/dL (calc) 03/21/2025 5:45 AM CDT [facility] Comment: For patients with diabetes plus 1 major ASCVD risk factor, treating to a non-HDL-C goal of <100 mg/dL (LDL-C of <70 mg/dL) is considered a therapeutic option. CHOL/HDLC RATIO 2.5 <5.0 (calc) 03/21/2025 5:45 AM CDT [facility] LDL-CHOLESTEROL 54 mg/dL (calc) 03/21/2025 5:45 AM CDT [facility] Comment: Reference range: <100 Desirable range <100 mg/dL for primary prevention; <70 mg/dL for patients with CHD or diabetic patients with > or = 2 CHD risk factors. LDL-C is now calculated using the Addie calculation, which is a validated novel method providing better accuracy than the Friedewald equation in the estimation of LDL-C. Mehran SS et al. NERY. 2013;310(19): 6968-6177 (http://education.ParentPlus.FlowBelow Aero/faq/LMB222) Blood BLOOD SPECIMEN / Unknown [facility] / Unknown 03/20/2025 2:13 PM CDT 03/20/2025 2:13 PM CDT Basilio Conway MD CHEMISTRY Final Re sult [facility] [address] [place] [address], * URINE ALBUMIN TO CREATININE RATIO, RANDOM (03/20/2025 2:13 PM CDT) ALB RAND URINE 22.9 mg/L 03/20/2025 11:44 PM CDT [facility] CREATININE,URIN E 1.98 g/L 03/20/2025 11:44 PM CDT [facility] ALBUMIN TO CREATININE RATIO,RAND UR 11.6 <30.0 mg/g creat 03/20/2025 11:44 PM CDT [facility] Urine URINE SPECIMEN / Unknown Non-Blood / Unknown 03/20/2025 2:13 PM CDT 03/20/2025 2:13 PM CDT Narrative [facility] - 03/20/2025 11:44 PM CDT If Albumin to Creatinine Ratio is elevated, consider the following: Elevations seen with incipient nephropathy associated with diabetes mellitus or hypertension. Stress, exercise,hematuria, and urinary tract infection may also produce elevated results. If clinically indicated, confirm with 24 Hour Albumin to Creatinine Ratio. Basilio Conway MD URINE Final Re sult [facility] [address] [place] [address], [place] * ALT (SGPT) (03/20/2025 2:13 PM CDT) ALT 29 9 - 46 U/L 03/21/2025 5:45 AM CDT [facility] Blood BLOOD SPECIMEN / Unknown [facility] / Unknown 03/20/2025 2:13 PM CDT 03/20/2025 2:13 PM CDT Basilio Conway MD CHEMISTRY Final Re sult [facility] [address] [address], [place] [phone] * PSA TOTAL (DIAG OR SCREEN) (03/20/2025 2:13 PM CDT) PSA, TOTAL 0.51 < OR = 4.00 ng/mL 03/21/2025 4:53 AM CDT [facility] Comment: The total PSA value from this [...] of the presence or absence of disease. Blood BLOOD SPECIMEN / Unknown [facility] / Unknown 03/20/2025 2:13 PM CDT 03/20/2025 2:13 PM CDT Basilio Conway MD CHEMISTRY Final Re sult Performing Organization Address [facility] [address]/[facility] Co de Phone Number [facility] [address] [address], [place] [phone] * (ABNORMAL) HEMOGLOBIN A1C MONITORING (POCT) (03/20/2025 2:13 PM CDT) [facility] POC HEMOGLOBIN A1C 6.5(H) <6.0 % OF TOTAL HGB 03/20/2025 2:30 PM CDT [facility] Comment: Any point of care results exhibiting inconsistency with the patient's clinical status should be repeated using a different testing method. Blood BLOOD SPECIMEN / Unknown [facility] / Unknown 03/20/2025 2:13 PM CDT 03/20/2025 2:13 PM CDT Basilio Conway MD CHEMISTRY Final Re sult Performing Organization Address [facility] [address]/[facility] Co de Phone Number [facility] [address] [address], [place] [phone] [facility] [address] [place] [address], * (ABNORMAL) BASIC METABOLIC PANEL (03/20/2025 2:13 PM CDT) [facility] SODIUM 136 135 - 146 mmol/L 03/21/2025 5:45 AM CDT [facility] POTASSIUM 4.6 3.5 - 5.3 mmol/L 03/21/2025 5:45 AM CDT [facility] CARBON DIOXIDE 26 20 - 32 mmol/L 03/21/2025 5:45 AM CDT [facility] GLUCOSE 255(H) 65 - 99 mg/dL 03/21/2025 5:45 AM CDT [facility] Comment: Fasting reference interval For someone without known diabetes, a glucose value >125 mg/dL indicates that they may have diabetes and this should be confirmed with a follow-up test. CALCIUM 9.4 8.6 - 10.3 mg/dL 03/21/2025 5:45 AM CDT [facility] CREATININE 1.23(H) 0.70 - 1.22 mg/dL 03/21/2025 5:45 AM CDT [facility] BUN/CREATININE RATIO 24(H) 6 - 22 (calc) 03/21/2025 5:45 AM CDT [facility] EGFR 58(L) > OR = 60 mL/min/1. 73m2 03/21/2025 5:45 AM CDT [facility] UREA NITROGEN (BUN) 29(H) 7 - 25 mg/dL 03/21/2025 5:45 AM CDT [facility] ELECTROLYTE BALANCE 8 7 - 17 mmol/L (calc) 03/21/2025 5:45 AM CDT [facility] CHLORIDE 102 98 - 110 mmol/L 03/21/2025 5:45 AM CDT [facility] Blood BLOOD SPECIMEN / Unknown [facility] / Unknown 03/20/2025 2:13 PM CDT 03/20/2025 2:13 PM CDT Basilio Conway MD CHEMISTRY Final Re sult [facility] [address] [address], from Last 3 Months Insurance MEDICARE PART A HB ONLY [employer] MED[employer]ARE ADVANTAGE MR Advance Directives Documents on File Type Date Recorded Patient Copy Reader Expl anation Healthcare Directive 07/14/2020 021 * [...] 7:06 AM 09/14/2016 5:25 PM Care Teams Statement Processor Relationship Specialty Start Date End Date Votel, Basilio Roque MD [address] [place] [address] PCP - General Family Practice 09/30/10 Steve Adams MD [address] [place] [address] Consulting Physician Cardiovascular Disease 04/22/15 Derrick Esqueda MD [address] [place] [address] Consulting Physician Cardiovascular Disease 06/23/20 Annette Montaño, MartiD [address] [address] Pharmacist Medication Management Pharmacology 08/23/23 08/22/26 Sarath Hodges MD [address] [address] Radiation Oncologist Radiation Oncology 01/15/24
--- OUTSIDE RECORDS SUMMARY | 2025-04-07 01:15 | XMS_ITS | Patient Health Record ---
Author Organization [facility] Address [address] [place] [address] Support Name Relationship Address Phone Sumit León Guarantor Unknown [phone] Reason For Referral No Information Plan Of Treatment No Information
[2025-04-07 01:23] VITALS: BP 121/57; PULSE 72; RESP 21; TEMP 36.6; O2SAT 98; BMI 26.5
--- NOTE | 2025-04-07 01:32 | ED.GENADULT ---
HPI - General Adult General Chief complaint: Epistaxis/Nosebleed Stated complaint: nosebleed Time Seen by Provider: 04/07/25 01:22 History of Present Illness HPI narrative: 84-year-old man presenting to the emergency department via EMS with concern nose bleed. 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 yesterday evening. Arrives here with son. Son and daughter have been caring for Sumit. Seemed to start and stop frequently with their efforts at control. More complicated with underlying history of dementia and that he has been picking at the packing at they have been placing. Arrives with Merocel on the right nostril where apparently there is the most bleeding from as well as cotton balls in the left nostril. Does have a septal button that has been considered for replacement. Takes clopidogrel with history of CVA. Related Data Home Medications ?Medication ?Instructions ?Recorded ?Confirmed atorvastatin 40 mg tablet 40 mg PO QPM 12/22/21 04/09/25 cholecalciferol (vitamin D3) 125 5,000 unit PO DAILY 12/22/21 04/09/25 mcg (5,000 unit) capsule clopidogrel 75 mg tablet 75 mg PO DAILY 12/22/21 04/09/25 vitamin E (dl, acetate) 180 mg 400 unit PO DAILY 12/22/21 04/09/25 (400 unit) capsule pregabalin 50 mg capsule mg PO 04/07/25 04/09/25 Allergies Allergy/AdvReac Type Severity Reaction Status Date / Time adhesive tape Allergy Unknown Verified 04/09/25 15:24 latex Allergy Verified 04/09/25 15:24 Review of Systems Status of ROS: Reports: unobtainable due to mental status [facility] Medical History Hearing loss ?H91.90 - Unspecified hearing loss, unspecified ear (ICD-10) Heart failure ?I50.9 - Heart failure, unspecified (ICD-10) 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 - Cerebral infarction due to unspecified occlusion or stenosis of left middle cerebral artery (ICD-10) Cardiac pacemaker ?Z95.0 - Presence of cardiac pacemaker (ICD-10) Obstructive sleep apnea ?G47.33 - Obstructive sleep apnea (adult) (pediatric) (ICD-10) Ischemic cardiomyopathy ?I25.5 - Ischemic cardiomyopathy (ICD-10) Left bundle branch block ?I44.7 - Left bundle-branch block, unspecified (ICD-10) Sensorineural hearing loss ?H90.5 - Unspecified sensorineural hearing loss (ICD-10) Adenomatous colon polyp ?D12.6 - Benign neoplasm of colon, unspecified (ICD-10) Neuropathy ?G62.9 - Polyneuropathy, unspecified (ICD-10) Prostate cancer ?C61 - Malignant neoplasm of prostate (ICD-10) Hyperlipidemia ?E78.5 - Hyperlipidemia, unspecified (ICD-10) Hypertension ?I10 - Essential (primary) hypertension (ICD-10) Coronary artery disease ?I25.10 - Atherosclerotic heart disease of [place] coronary artery without angina pectoris (ICD-10) Diabetes mellitus ?E11.9 - Type 2 diabetes mellitus without complications (ICD-10) Surgical History Status post transcatheter aortic valve replacement (TAVR) using bioprosthesis ?Z95.3 - Presence of xenogenic heart valve (ICD-10) S/P hernia repair ?Z98.890 - Other specified postprocedural states (ICD-10) ?Z87.19 - Personal history of other diseases of the digestive system (ICD-10) S/P TAVR (transcatheter aortic valve replacement) ?Z95.2 - Presence of prosthetic heart valve (ICD-10) Social History Smoking Status: Never smoker Do you use any of these nicotine containing products: None Second hand tobacco smoke exposure: No How often do you have a drink containing alcohol: never How often do you have six or more drinks on one occasion: Never AUDIT-C Alcohol total score: 0 Non-prescribed substance use: denies use Caffeine: Yes service: No Exam Narrative: Exam Narrative: No notable distress. There is dried blood about bleeding. Indications were primarily the right nostril. Does have a Merocel packing in the right nostril. Nasal clamp is on as well. This has began to slip looks like. Large clot in the posterior oropharynx. Breathing easily other than the congestion of his nose. Lungs appear clear. Const: Vital Signs, click to edit/add: Vital Signs - 24 hr 10/27/25 01:23 Temperature 97.9 F Pulse Rate [Right Pulse Oximeter] 72 Respiratory Rate 21 Blood Pressure [Ri ght Upper Arm] 121/57 L Pulse Oximetry 98 Oxygen Delivery Me thod Room Air Documenting provider has reviewed patient's vital signs: yes Course Vital Signs Vital signs: Initial Vital Signs Temperature 97.9 F 04/07/25 01:23 Temperature Source Temporal Artery Scan 04/07/25 01:23 Pulse Rate 72 04/07/25 01:23 Respiratory Rate 21 04/07/25 01:23 Blood Pressure 121/57 L 04/07/25 01:23 Blood Pressure Mean 78 04/07/25 01:23 Blood Pressure Position Sitting 04/07/25 01:23 Pulse Oximetry 98 04/07/25 01:23 Oxygen Delivery Method Room Air 04/07/25 01:23 Vital Signs Temperature 97.9 F 04/07/25 01:23 Pulse Rate 72 04/07/25 01:23 Respiratory Rate 21 04/07/25 01:23 Blood Pressure 121/57 L 04/07/25 01:23 Pulse Oximetry 98 04/07/25 01:23 Oxygen Delivery Method Room Air 04/07/25 01:23 Temperature 97.9 F 04/07/25 04:19 Pulse Rate 75 04/07/25 04:19 Respiratory Rate 22 04/07/25 04:19 Blood Pressure 124/74 04/07/25 04:19 Pulse Oximetry 98 04/07/25 04:19 Oxygen Delivery Method Room Air 04/07/25 04:19 Medical Decision Making MDM Narrative Medical decision making narrative: Did remove Merocel packing and and then cotton ball from the left nostril. Brisk bleeding. Not able to visualize any particular source. I did place Merocel packing in the left nostril and then balloon tampon anterior length in the right nostril. Do duration of bleeding understandable family concern a did check a hemoglobin today. One year ago at this time hemoglobin is 11.3 today at 8.9. Did obtain some record however though outside clinic showing hemoglobin also 11.3 about a week and half ago. Presumably this is from blood loss over this last day. Monitored from period of time in the emergency department. Bleeding looks to slow dramatically. Some reddish moisture from nasal mucosa and only trace ooze. I did retrieve the large clot from the back of his throat as well. Seemed marked comfortable or less prone to digging with that removed. Placed folded 4 x 4 over his nose and then nasal sling which hopefully will discourage manipulation of the packing. See patient discharge for further discussion Yes. Your hemoglobin did drop a little bit. Today was 8.9. A week and half ago was 11.3. I have to presume that this is related to your 10 hour or so nosebleed. Looks like we have managed to get control of your nose bleed at this time. I would like you seen within the next couple of days at ENT. You do have a relationship with Dr. Boland. Will be prescribing a course of amoxicillin as prophylaxis from [facility]. Might also repeat blood tests in a week or so. Light oozing of blood is okay particularly if it is more like nasal moisture stained with blood. Return if you are soaking through with blood, 1 rolled up gauze under your nose an hour for 2 consecutive hours, increasing shortness of breath or lightheadedness. Medical Records Medical records reviewed: Yes I reviewed the patient's medical records Lab Data Lab results reviewed: Yes I reviewed the patient's lab results Labs: Lab Results 04/07/25 Range/Units 02:46 Hgb 8.9 L (13.5-17.5) gm/dL Discharge Plan Discharge Clinical Impression: Epistaxis Patient Disposition: Home w/ Parent or Adult Condition: Stable Additional Instructions: Yes. Your hemoglobin did drop a little bit. Today was 8.9. A week and half ago was 11.3. I have to presume that this is related to your 10 hour or so nosebleed. Looks like we have managed to get control of your nose bleed at this time. I would like you seen within the next couple of days at ENT. You do have a relationship with Dr. Boland. Will be prescribing a course of amoxicillin as prophylaxis from [facility]. Might also repeat blood tests in a week or so. Light oozing of blood is okay particularly if it is more like nasal moisture stained with blood. Return if you are soaking through with blood, 1 rolled up gauze under your nose an hour for 2 consecutive hours, increasing shortness of breath or lightheadedness. Prescriptions: No Action atorvastatin 40 mg tablet 40 mg PO QPM cholecalciferol (vitamin D3) 125 mcg (5,000 unit) capsule 5,000 unit PO DAILY clopidogrel 75 mg tablet 75 mg PO DAILY vitamin E (dl, acetate) 180 mg (400 unit) capsule 400 unit PO DAILY pregabalin 50 mg capsule PO Follow Up/Referrals: Basilio Conway MD [Primary Care Provider, Family Practice] Stand Alone Forms: [employer] Info Instructions
[2025-04-07 02:52] LABS: Hemoglobin* 8.9 gm/dL (13.5-17.5)
[2025-04-07 04:19] VITALS: BP 124/74; PULSE 75; RESP 22; TEMP 36.6; O2SAT 98
== END 2025-04-07 04:20 | disposition home or self-care (01) ==
PROVIDERS: Emergency Provider Family Medicine; PCP Family Medicine
DX: R04.0 Epistaxis (principal)
CPT/HCPCS: 30901; 36415; 85018; 99283; 99284

== ENCOUNTER 2025-05-23 11:25 | Day surgery (SDC) | payer MEDICARE, SELFPAY ==
[2025-05-23 11:49] VITALS: BMI 26.9
[2025-05-23 12:16] VITALS: BP 112/55; PULSE 66; RESP 16; TEMP 36.3; O2SAT 97
[2025-05-23] MEDS: SODIUM CHLORIDE 0.9 % (FLUSH) 10 ML SYRINGE IVF (12:19)
[2025-05-23] MEDS: LACTATED RINGERS 1000 ML 1,000 ML 100 ML IV (12:19)
[2025-05-23 13:25] VITALS: BP 97/51; PULSE 62; RESP 16; TEMP 36.4; O2SAT 98
--- NOTE | 2025-05-23 13:30 | P.ANES_ITS ---
Anesthesia Charges Start Date/Time Anesthesia Start Date: 05/23/25 Anesthesia Start Time: 12:56 Stop Date/Time Anesthesia Stop Date: 05/23/25 Anesthesia Stop Time: 13:27 Summary Extremes of Age - Over 70 or under 1: CHIEF CREW SCHEDULER Coding CPT Codes CPT Codes: ANESTH NOSE/SINUS SURGERY - 59369 ([id number]) P3 - PATIENT W/SEVERE SYS DISEASE, QK - ENTRY LEVEL AUTOMOTIVE TECHNICIAN 2-4 CNCRNT ANES PROC, QX - CHIEF CREW SCHEDULER SVC W/ MD MED DIRECTION Additional Codes: Summary - Extremes of Age - Over 70 or under 1: CHIEF CREW SCHEDULER ([id number])
--- NOTE | 2025-05-23 13:30 | W.ANESCHARGE ---
Anesthesia Charges Start Date/Time Anesthesia Start Date: 05/23/25 Anesthesia Start Time: 12:56 Stop Date/Time Anesthesia Stop Date: 05/23/25 Anesthesia Stop Time: 13:27 Summary Extremes of Age - Over 70 or under 1: PROPERTY DAMAGE CLAIMS ADJUSTOR Coding CPT Codes CPT Codes: ANESTH NOSE/SINUS SURGERY - 52323 ([id number]) P3 - PATIENT W/SEVERE SYS DISEASE, QK - CONTRACT MANAGER 2-4 CNCRNT ANES PROC, QX - PROPERTY DAMAGE CLAIMS ADJUSTOR SVC W/ MD MED DIRECTION Additional Codes: Summary - Extremes of Age - Over 70 or under 1: PROPERTY DAMAGE CLAIMS ADJUSTOR ([id number])
[2025-05-23 13:40] VITALS: BP 108/57; PULSE 63; RESP 16; O2SAT 97
--- NOTE | 2025-05-23 13:47 | P.ANES_ITS ---
Anesthesia Charges Start Date/Time Anesthesia Start Date: 05/23/25 Anesthesia Start Time: 12:56 Stop Date/Time Anesthesia Stop Date: 05/23/25 Anesthesia Stop Time: 13:27 Summary Extremes of Age - Over 70 or under 1: MDA Coding CPT Codes CPT Codes: ANESTH NOSE/SINUS SURGERY - 31625 ([id number]) QK - QUALITATIVE FIELD PROJECT MANAGER 2-4 CNCRNT ANES PROC, QX - SOFTWARE INSTALLER SVC W/ MD MED DIRECTION, P3 - PATIENT W/SEVERE SYS DISEASE Additional Codes: Summary - Extremes of Age - Over 70 or under 1: MDA ([id number])
[2025-05-23 13:55] VITALS: BP 118/70; PULSE 60; RESP 16; O2SAT 97
[2025-05-23 14:10] VITALS: BP 124/69; PULSE 60; RESP 16; TEMP 36.4; O2SAT 97
--- NOTE | 2025-05-30 06:52 | W.PM.ENTPROC ---
Procedure Note Date of procedure: 05/30/25 Procedure: Pre op diagnosis: nasal septal perforation, epistaxis Post op same Procedure: placement of septal button Under monitored anesthesia, the nose was decongested. Paper was used to determine the size of the button and used as a template. The button was trimmed. Two 4-0 sutures were placed to fold one flange. The button was inserted into the left nostril and the folded flange inserted through the perforation into the right side of the nose. The sutures were removed. The button appeared to fit nicely. Blood loss 0 Surgeon: Jeison Boland MD
== END 2025-05-23 14:39 | disposition home or self-care (01) ==
LOC: OR 11:26
PROVIDERS: PCP Family Medicine; Visit Provider Otolaryngology
PROC: (CPT 30520; principal; 2025-05-23 12:45)
DX: R04.0 Epistaxis (principal); J34.89 Other specified disorders of nose and nasal sinuses; E11.42 Type 2 diabetes mellitus with diabetic polyneuropathy; Z79.85 Long-term (current) use of injectable non-insulin antidiabetic drugs
CPT/HCPCS: 30220; 00160; 82962; 99100; A9270; J2405; J2704; J7120

== ENCOUNTER 2025-06-11 05:06 | Outpatient (CLI) | payer MEDICARE, OTHER, SELFPAY | END 2025-06-11 05:07 | disposition home or self-care (01) | LOC: AMB 06-16 14:16 | PROVIDERS: PCP Family Medicine; Visit Provider Family Medicine | DX: R53.1 Weakness (principal) | CPT/HCPCS: A0425; A0427 ==